=== PATIENT | male | born 1950 | race Two or more races ===

== ENCOUNTER → 2016-04-17 | Outpatient (CLI) | payer OTHER ==
--- NOTE | 2016-04-17 18:34 | DX ---
Left Shoulder , 3 Views History: Pain post trauma. Fall yesterday. Findings: The humeral head is well rounded and normally located. No fracture or dislocation is identi fied. Incidentally noted is a degenerative cyst involving the proximal superior corner of the acromiu m. The AC joint is normally aligned. Impression: Nothing acute identified.
== END ==
LOC: CIMAGING 13:40
DX: M25.512 Pain in left shoulder (principal)
CPT/HCPCS: 73030-PO

== ENCOUNTER 2017-08-06 07:32 | Inpatient (IN) | payer OTHER ==
[2017-08-06] MEDS ORDERED: LORazepam 2 MG/ML INJ ONE (07:36)
[2017-08-06] MEDS ORDERED: LIDOCAINE 1% 300 MG/30 ML SDV ONE (07:46)
[2017-08-06] MEDS ORDERED: fentaNYL 100 MCG/2 ML INJ ONE ×2 (07:46→09:51)
[2017-08-06] MEDS ORDERED: IOPAMIDOL (ISOVUE-370) 150 ML BTL IV ONE ×2 (07:47→08:51)
[2017-08-06] MEDS ORDERED: MIDAZOLAM 2 MG/2 ML VIAL ONE ×2 (07:47→09:20)
[2017-08-06] MEDS ORDERED: AMIODARONE HCL 150 MG/100 ML BAG (1.5 MG/ML) IV ONE ×2 (07:48→14:04)
[2017-08-06] MEDS ORDERED: BIVALIRUDIN 250 MG/5 ML VIAL IV ONE (07:48)
[2017-08-06] MEDS ORDERED: AMIODARONE HCL 150 MG/3 ML VIAL ONE ×2 (07:48→08:57)
--- NOTE | 2017-08-06 07:49 | EDPHY ---
HPI/HX/ROS/PE/MDM Narrative: CHIEF COMPLAINT: ICD shocks delivered. HISTORY OF PRESENT ILLNESS: This patient is a 66 y/o male with history of CAD, ischemic cardiomyopathy arriving emergently via EMS after his internal defibrillator activated this morning. He was moving a cabinet and the ICD went off. Another person in the building called EMS. On EMS arrival, the patient was discovered "almost unresponsive" with no radial pulse, BP 70/50. He was clutching his chest and having repeated internal defibrillations from his defibrillator. After being transferred to the ambulance, paramedics noted the patient to have with a interpreted as atrial fibrillation with RVR noted on EMS monitor. However, the rate is documented at close to 200 and is wide complex. EMS crews state the patient's "eyes would open with internal shock" and additionally state they may have noted an alcohol smell on patient's breath initially. EMS obtained IV access with a left 18 gauge AC and right 16 gauge EJ. Administered 500mL IV NS. The patient's mentation improved on arrival, and per EMS the patient denied any complaint of chest pain. Currently, patient is able to give his name. Patient was admitted for a similar incident 01/14/14 for inappropriate ICD shocks. Shortly after arrival to the emergency department, patient became unresponsive, appear to have tonic-clonic activities in the arms and legs, and developed wide complex, polymorphic, torsades appearing rhythm on the monitor. Further HPI unobtainable due to patient presentation. REVIEW OF SYSTEMS: Unobtainable due to patient presentation. PAST MEDICAL HISTORY: Hypertension, dyslipidemia, CAD, ischemic cardiomyopathy , Bi[employer] ICD in place. History of anterior wall [place]. Past medical records reviewed including admission 01/14/14 for ICD shock. SOCIAL HISTORY: Nonsmoker. VITAL SIGNS: Reviewed by me. Heart rate 204, weak radial pulse initially, respiratory rate 20. GENERAL: Well-developed, well-nourished, briefly awake on initial arrival. HEENT: Atraumatic. Eyes: Bilateral conjunctival injection. Mouth: moist mucous membranes. No erythema or lesions. Neck: supple with no adenopathy. LUNGS: Clear to auscultation bilaterally, no wheezes, rhonchi or rales. Pacemaker scars in right and left upper chest wall. CARDIAC: Extreme tachycardia. ABDOMEN: Soft, nontender, nondistended, bowel sounds normal. BACK: No CVA tenderness. EXTREMITIES: No trauma. No edema. Range of motion is normal throughout. NEURO: Initially alert, became unresponsive with tonic activity in his upper and lower extremities, did not regain consciousness. SKIN: Warm and dry, no rash. Portions of this note were transcribed by a medical assistant instructor. I personally performed a history, physical exam, medical decision making, and confirmed accuracy of information the transcribed note. ED Course: 66 y/o male presents with reports of multiple different relations from his internal defibrillator and concerns regarding atrial fibrillation with RVR. 07:32 Met EMS at bedside. 07:34 Patient appears to have seizure activity. 07:36 No carotid pulse. Began CPR , transfer to room 2. 07:36 Patient responsive briefly. Radial pulse briefly present, Apparent Torsades de Pointes on EMS monitor. 2 g of magnesium ordered. 07:38 Patient lost pulses. Monitor demonstrates what appears to be VFib. CPR initiated. Weak pulse present after what appears to be internal defibrillation from patient's defibrillator. Synchronous cardioversion shock administered. Pulse returned. Cardiac alert called. 1 mg Ativan given. 07:42 patient again lost pulses. Appears to be ventricular tachycardia on the monitor. Second shock administered. Pulses returned. Patient's internal defibrillator activated again. 07:42 GamaGRICELDA Markham for cardiology at bedside. 07:45 75mcg fentanyl administered for pain. Plan to administer 300mg Amiodarone. GRICELDA Lugo, concurs. Plan for intubation to protect patient's airway. 7:45 Procedure: Rapid sequence intubation. Indication for the procedure was airway protection. The patient was preoxygenated with 100% oxygen by face mask. The patient was given the following IV medications: 20mg IV Etomidate, 75mcg IV fentanyl, 120mg IV succinylcholine. The patient was orally endotracheally intubated under direct visualization with a 7.0 ETT. Tracheal intubation was confirmed with misting on the tube; breath sounds were auscultated equally bilaterally; appropriate color change with [place] CO2 detector. Chest X-ray shows ETT in good position. The procedure was performed by myself, Dr. Hurst. Plan to admit. Plan for CXR. 7:53 monitor strip demonstrates bradycardia with nonconducted premature beats. Patient lost pulses. Epinephrine administered and CPR started. 7:[address] Dye Feeder Dr. Hooks at bedside. Bedside ultrasound performed by myself demonstrates no pericardial effusion, poor ejection fraction with poor contractility. Plan to transfer patient to cath lab tech for catheterization. 08:04 2mg IV Versed administered. 08:05 Patient transferred to cath lab tech. 08:36 Troponin elevated at 0.147 Critical care time spent by me, Dr. Hurst, exclusively with this patient was 30 minutes, exclusive of PA time and exclusive of procedures. The organ system at risk was cardiac and I gave IVF, amiodarone, epinephrine, performed CPR and defibrillation, and emergently transferred the patient to the cath lab tech to prevent worsening of the patients condition. MDM: Differential diagnosis for the physician's presenting complaints was considered including but not limited to ventricular fibrillation, ventricular tachycardia, torsades de point, electrolyte abnormalities, atrial fibrillation with aberrancy , inappropriate defibrillation from internal defibrillator. - Data Points Imaging Results: Imaging Impressions Chest X-Ray 08/06/17 07:51 Impression: Expiratory phase exam. ET tube in the distal trachea. Imaging: I viewed and interpreted images myself Laboratory Results: Laboratory Results 08/06/17 07:40 08/06/17 07:40 08/06/17 08/06/17 08/06/17 07:53 07:40 07:40 WBC RBC Hgb POC Hgb 16.0 gm/dL gm/dL (13.7-17.5) Hct POC Hct 47 % % (40-51) MCV MCH MCHC RDW Plt Count MPV Neut % (Auto) Lymph % (Auto) [place] % (Auto) Eos % (Auto) Baso % (Auto) Nucleat RBC Rel Count Absolute Neuts (auto) Absolute Lymphs (auto) Absolute Monos (auto) Absolute Eos (auto) Absolute Basos (auto) Absolute Nucleated RBC Immature Gran % Immature Gran # RBC/WBC/PLT Morphology Atypical Lymphocytes Platelet Estimate POC Sodium 140 mEq/L mEq/L (135-145) Sodium 142 mEq/L mEq/L (135-145) POC Potassium 3.0 mEq/L L mEq/L (3.3-5.0) Potassium 3.7 mEq/L mEq/L (3.5-5.2) POC Chloride 102 mEq/L mEq/L (97-110) Chloride 101 mEq/L mEq/L (97-110) Carbon Dioxide 18 mEq/l L mEq/l (22-31) Anion Gap 23 mEq/L H mEq/L (8-16) POC BUN 23 mg/dL mg/dL (7-23) BUN 20 mg/dL mg/dL (7-23) Creatinine 0.9 mg/dL mg/dL (0.7-1.3) POC Creatinine 1.0 mg/dL mg/dL (0.7-1.3) Estimated GFR > 60 Glucose 227 mg/dL H mg/dL (70-100) POC Glucose 238 mg/dL H mg/dL (70-100) Calcium 8.2 mg/dL L mg/dL (8.5-10.4) Magnesium 4.2 mg/dL H mg/dL (1.6-2.3) Total Bilirubin 0.7 mg/dL mg/dL (0.1-1.4) Conjugated Bilirubin 0.5 mg/dL mg/dL (0.0-0.5) Unconjugated Bilirubin 0.2 mg/dL mg/dL (0.0-1.1) AST 163 IU/L H IU/L (17-59) ALT 177 IU/L H IU/L (21-72) Alkaline Phosphatase 59 IU/L IU/L (38-126) Troponin I 0.147 ng/mL H ng/mL (0.000-0.034) NT-Pro-B Natriuret Pep 367 pg/mL H pg/mL (0-125) Total Protein 6.3 g/dL g/dL (6.3-8.2) Albumin 3.9 g/dL g/dL (3.5-5.0) Lipase 125 IU/L IU/L (23-300) Specimen Hemolysis 205 Ethyl Alcohol < 10 mg/dL mg/dL (0-10) 08/06/17 07:40 WBC 10.72 10^3/uL H 10^3/uL (3.80-9.50) RBC 4.81 10^6/uL 10^6/uL (4.40-6.38) Hgb 15.1 g/dL g/dL (13.7-17.5) POC Hgb Hct 47.2 % % (40.0-51.0) POC Hct MCV 98.1 fL fL (81.5-99.8) MCH 31.4 pg pg (27.9-34.1) MCHC 32.0 g/dL L g/dL (32.4-36.7) RDW 13.9 % % (11.5-15.2) Plt Count 247 10^3/uL 10^3/uL (150-400) MPV 10.3 fL fL (8.7-11.7) Neut % (Auto) 28.3 % L % (39.3-74.2) Lymph % (Auto) 59.9 % H % (15.0-45.0) [place] % (Auto) 9.4 % % (4.5-13.0) Eos % (Auto) 1.3 % % (0.6-7.6) Baso % (Auto) 0.5 % % (0.3-1.7) Nucleat RBC Rel Count 0.0 % % (0.0-0.2) Absolute Neuts (auto) 3.03 10^3/uL 10^3/uL (1.70-6.50) Absolute Lymphs (auto) 6.42 10^3/uL H 10^3/uL (1.00-3.00) Absolute Monos (auto) 1.01 10^3/uL H 10^3/uL (0.30-0.80) Absolute Eos (auto) 0.14 10^3/uL 10^3/uL (0.03-0.40) Absolute Basos (auto) 0.05 10^3/uL 10^3/uL (0.02-0.10) Absolute Nucleated RBC 0.00 10^3/uL 10^3/uL (0-0.01) Immature Gran % 0.6 % % (0.0-1.1) Immature Gran # 0.06 10^3/uL 10^3/uL (0.00-0.10) RBC/WBC/PLT Morphology TNP Atypical Lymphocytes 1+ H Platelet Estimate TNP POC Sodium Sodium POC Potassium Potassium POC Chloride Chloride Carbon Dioxide Anion Gap POC BUN BUN Creatinine POC Creatinine Estimated GFR Glucose POC Glucose Calcium Magnesium Total Bilirubin Conjugated Bilirubin Unconjugated Bilirubin AST ALT Alkaline Phosphatase Troponin I NT-Pro-B Natriuret Pep Total Protein Albumin Lipase Specimen Hemolysis Ethyl Alcohol Medications Given: Acetaminophen (Tylenol Rectal) 650 mg MT Q4HRS PRN PRN Reason: Pain, Mild/Fever,Can't Take PO Stop: 02/02/18 08:23 Last Admin: 08/06/17 15:57 Dose: 650 mg Dextrose (D5w) 1,000 mls @ 25 mls/hr IV CONT GRANT PRN Reason: Protocol Stop: 02/02/18 08:59 Last Admin: 08/06/17 11:25 Dose: 1,000 mls Insulin Human Regular 100 unit (/ Sodium Chloride) 101 mls @ 0 mls/hr IV CONT GRANT; Per Protocol PRN Reason: Protocol Stop: 02/02/18 08:59 Last Admin: 08/06/17 11:24 Dose: 101 mls Propofol (Diprivan 10 Mg/Ml (Premix)) 100 mls @ 0 mls/hr IV CONT GRANT; Titrate PRN Reason: Protocol Stop: 02/02/18 08:59 Last Admin: 08/06/17 11:25 Dose: 100 mls Heparin Sodium (Porcine) (Heparin 50 Units/Ml (Premix)) 500 mls @ 0 mls/hr IV CONT GRANT; Per Protocol PRN Reason: Protocol Stop: 02/02/18 09:44 Last Admin: 08/06/17 11:25 Dose: 500 mls Fentanyl 1,000 mcg/ Sodium (Chloride) 100 mls @ 0 mls/hr IV CONT GRANT; Per Protocol PRN Reason: Protocol Stop: 08/16/17 10:23 Last Admin: 08/06/17 11:24 Dose: 100 mls Dopamine HCl/Dextrose (Dopamine 1600 Mcg/Ml (Premix)) 250 mls @ 0 mls/hr IV CONT GRANT; Titrate PRN Reason: Protocol Stop: 02/02/18 11:29 Last Admin: 08/06/17 15:32 Dose: 250 mls Epinephrine HCl 2 mg/ Sodium (Chloride) 502 mls @ 0 mls/hr IV CONT GRANT; Per Protocol PRN Reason: Protocol Stop: 02/02/18 11:59 Last Admin: 08/06/17 14:55 Dose: 502 mls Amiodarone HCl 540 mg/ (Dextrose) 300 mls @ 16.667 mls/hr IV ONCE ONE Stop: 08/07/17 07:29 Last Admin: 08/06/17 13:53 Dose: 300 mls Vasopressin 25 unit/ Sodium (Chloride) 251.25 mls @ 24 mls/hr IV CONT GRANT Stop: 02/02/18 13:59 Last Admin: 08/06/17 13:53 Dose: 251.25 mls Potassium Chloride (Potassium Cl 10 Meq (Premix)) 50 mls @ 100 mls/hr IV Q30M [facility] Stop: 08/06/17 17:29 Last Admin: 08/06/17 16:52 Dose: 50 mls Discontinued Medications Calcium Gluconate (Calcium Gluconate) 1 gm IVP EDNOW ONE Stop: 08/06/17 08:14 Last Admin: 08/06/17 07:50 Dose: 1 gm Clopidogrel Bisulfate (Plavix) 600 mg PO ONCE ONE Stop: 08/06/17 09:37 Last Admin: 08/06/17 11:26 Dose: 600 mg Enoxaparin Sodium (Lovenox) 40 mg SC DAILY [facility] Stop: 02/02/18 08:59 Last Admin: 08/06/17 11:27 Dose: Not Given Epinephrine HCl (Epinephrine) 1 mg IVP EDNOW ONE Stop: 08/06/17 08:15 Last Admin: 08/06/17 07:54 Dose: 1 mg Epinephrine HCl (Epinephrine) 0.5 mg IVP ONCE ONE Stop: 08/06/17 10:53 Last Admin: 08/06/17 11:31 Dose: 0.5 mg Etomidate (Etomidate) 20 mg IVP EDNOW ONE Stop: 08/06/17 08:13 Last Admin: 08/06/17 07:46 Dose: 20 mg Fentanyl (Sublimaze) 75 mcg IVP EDNOW ONE Stop: 08/06/17 08:12 Last Admin: 08/06/17 07:45 Dose: 75 mcg Heparin Sodium (Porcine) (Heparin Injection) 0 unit IVP ONCE ONE PRN Reason: Protocol Stop: 08/06/17 09:34 Last Admin: 08/06/17 11:31 Dose: 4.3 ml Amiodarone HCl 300 mg/ (Dextrose) 106 mls @ 318 mls/hr IV ONCE ONE Stop: 08/06/17 08:32 Last Admin: 08/06/17 07:50 Dose: 106 mls Sodium Chloride (Ns) 1,000 mls @ 0 mls/hr IV ONCE ONE PRN Reason: Wide Open Stop: 08/06/17 08:15 Last Admin: 08/06/17 08:26 Dose: 1,000 mls Potassium Chloride (Potassium Cl 10 Meq (Premix)) 100 mls @ 100 mls/hr IV Q1H GRANT Stop: 08/06/17 10:29 Last Admin: 08/06/17 12:25 Dose: Not Given Famotidine 20 mg/ Sodium (Chloride) 102 mls @ 408 mls/hr IV BID ONE Stop: 08/06/17 08:38 Last Admin: 08/06/17 13:31 Dose: Not Given Amiodarone HCl (Amiodarone Hcl) 200 mls @ 33.333 mls/hr IV ONCE ONE PRN Reason: Protocol Stop: 08/06/17 14:59 Last Admin: 08/06/17 11:25 Dose: 200 mls Epinephrine HCl 1 mg/ Sodium (Chloride) 250 mls @ 0 mls/hr IV CONT GRANT; Per Protocol PRN Reason: Protocol Stop: 02/02/18 10:59 Last Admin: 08/06/17 12:18 Dose: 250 mls Amiodarone HCl (Amiodarone Hcl) 100 mls @ 600 mls/hr IV ONCE ONE Stop: 08/06/17 14:39 Last Admin: 08/06/17 14:35 Dose: 100 mls Lorazepam (Ativan Injection) 1 mg IVP EDNOW ONE Stop: 08/06/17 08:11 Last Admin: 08/06/17 07:44 Dose: 1 mg Sodium Bicarbonate (Sodium Bicarbonate) 50 meq IVP ONCE ONE Stop: 08/06/17 14:01 Last Admin: 08/06/17 14:44 Dose: Not Given Sodium Bicarbonate (Sodium Bicarbonate) 50 meq IV ONCE ONE Stop: 08/06/17 14:46 Last Admin: 08/06/17 14:43 Dose: 50 meq Succinylcholine Chloride (Quelicin) 120 mg IVP EDNOW ONE Stop: 08/06/17 08:12 Last Admin: 08/06/17 07:46 Dose: 120 mg Point of Care Test Results: 08/06/17 07:53 POC Sodium 140 POC Potassium 3.0 L POC Chloride 102 POC BUN 23 POC Creatinine 1.0 POC Glucose 238 H General Initial Vital Signs: Initial Vital Signs Temperature (C) 37.3 C 08/06/17 07:55 Heart Rate 54 L 08/06/17 07:55 Respiratory Rate 20 08/06/17 07:55 O2 Sat (%) 90 L 08/06/17 07:55 O2 Delivery Mode Ventilator Allergies/Adverse Reactions: No Known Allergies Allergy (Verified 08/06/17 16:30) Home Medications: Medication Instructions Recorded Apixaban [Eliquis] 5 mg PO BID 08/06/17 Aspirin [Aspirin 81mg (*)] 81 mg PO DAILY 08/06/17 Atorvastatin Calcium [Lipitor 40 40 mg PO HS 08/06/17 mg (*)] Cholecalciferol Vit D3 [Vitamin D3 2,000 units PO DAILY 08/06/17 (*)] Digoxin 250 mcg PO DAILY 08/06/17 Metoprolol Succinate Xr [Toprol Xl 100 mg PO DAILY 08/06/17 100 mg (*)] [place]-3 Fatty Acids [Fish Oil 1000 1,000 mg PO DAILY 08/06/17 mg (*)] Omeprazole 20 mg PO DAILY 08/06/17 Sacubitril/Valsartan 24/26Mg 1 ea PO BID 08/06/17 [Entresto 24 mg/26 mg (RX)] metFORMIN SR [Glucophage XR 500 mg 1,500 mg PO DAILY@1800 08/06/17 (*)] Departure - Departure Disposition: [facility] Acute Clinical Impression: Cardiac defibrillator in place, Seizure, Cardiac arrest Atrial fibrillation Qualifiers: Atrial fibrillation type: unspecified Qualified Code(s): I48.91 - Unspecified atrial fibrillation Cardiac arrhythmia Qualifiers: Arrhythmia type: other cardiac arrhythmia Qualified Code(s): I49.8 - Other specified cardiac arrhythmias Condition: Critical Report Scribed for: Carey Hurst Report Scribed by: Anabella Sutton Date of Report: 08/06/17 Time of Report: 09:28
[2017-08-06] MEDS ORDERED: LORazepam 2 MG/ML INJ IVP ONE (08:10)
[2017-08-06] MEDS ORDERED: SUCCINYLCHOLINE CHLORIDE 200 MG/10 ML SYR IVP ONE (08:11)
[2017-08-06] MEDS ORDERED: fentaNYL 100 MCG/2 ML INJ IVP ONE (08:11)
[2017-08-06] MEDS ORDERED: ETOMIDATE 40 MG/20 ML INJ IVP ONE (08:12)
[2017-08-06] MEDS ORDERED: CALCIUM GLUC 10% 1 GM/10 ML VIAL IVP ONE (08:13)
[2017-08-06] MEDS ORDERED: AMIODARONE HCL 300 MG in D5W 100 ML IV ONE (08:13)
[2017-08-06] MEDS ORDERED: EPINEPHrine 1 MG/10 ML SYR IVP ONE ×5 (08:14→12:00)
[2017-08-06] MEDS ORDERED: NS 1,000 ML IV ONE (08:14)
[2017-08-06 08:15] LABS: PLATELET COUNT 247 10^3/uL (150-400)
[2017-08-06] MEDS ORDERED: PHENYLEPHRINE HCL 100 MCG/ML SYR ONE (08:20)
[2017-08-06] MEDS ORDERED: PROPOFOL/EMULSION 500 MG/50 ML BOTTLE IV ONE ×2 (08:22)
[2017-08-06] MEDS ORDERED: AMIODARONE HCL 540 MG in D5W 300 ML IV ONE ×2 (08:23→13:30)
[2017-08-06] MEDS ORDERED: ACETAMINOPHEN 650 MG SUPP PR PRN (08:24)
[2017-08-06] MEDS ORDERED: FAMOTIDINE 20 MG in NS 100 ML IV ONE (08:24)
--- NOTE | 2017-08-06 08:28 | CPEKG ---
Heart Rate: 76 RR Interval: 789 P-R Interval: 124 QRSD Interval: 252 QT Interval: 508 QTC Interval: 572 QRS [place]: -70 T Wave [place]: 115 EKG Severity - ABNORMAL ECG - EKG Impression: ATRIAL-PACED COMPLEXES EKG Impression: RUN OF VENTRICULAR PREMATURE COMPLEXES EKG Impression: NONSPECIFIC IVCD WITH LAD EKG Impression: LEFT VENTRICULAR HYPERTROPHY Electronically Signed By: Carey Hurst 06-Aug-2017 16:29:11
[2017-08-06] MEDS ORDERED: PROTOCOL POTASSIUM 1 DOSE MISC PRN ×2 (08:51→09:10)
[2017-08-06] MEDS ORDERED: ENOXAPARIN 40 MG/0.4 ML SYR SC SCH (09:00)
[2017-08-06] MEDS ORDERED: fentaNYL/NACL 100 ML IV SCH (09:00)
[2017-08-06] MEDS ORDERED: AMIODARONE A.FIB-6HR INFSN (ORDER 2/3) PREMIX IV ONE (09:00)
[2017-08-06] MEDS ORDERED: D5W 1,000 ML IV SCH (09:00)
[2017-08-06] MEDS ORDERED: AMIODARONE A.FIB-18HR INFSN (ORDER 3/3) IV ONE (09:00)
[2017-08-06] MEDS ORDERED: CLOPIDOGREL BISULFATE 75 MG TAB ONE (09:28)
[2017-08-06] MEDS ORDERED: HEPARIN 10,000 UNIT/10 ML MDV (1,000 UNIT/ML) IVP ONE (09:33)
[2017-08-06] MEDS ORDERED: ATROPINE SULFATE 1 MG/10 ML SYR IVP PRN (09:36)
[2017-08-06] MEDS ORDERED: CLOPIDOGREL BISULFATE 75 MG TAB PO ONE (09:36)
[2017-08-06] MEDS ORDERED: NITROGLYCERIN 0.4 MG BTL SL PRN (09:36)
[2017-08-06 09:43] LABS: PLATELET COUNT 205 10^3/uL (150-400)
--- NOTE | 2017-08-06 09:48 | CPIP ---
[f rep st] INVASIVE CARDIAC PROCEDURE DATE OF PROCEDURE: 08/06/2017 PROCEDURES: 1. Coronary angiography. 2. Left ventricular end-diastolic pressure. 3. Intra-aortic balloon pump. 4. Stenting of proximal circumflex coronary artery using Synergy drug-eluting stent. INDICATION: Cardiac arrest. ACCESS: Patient was prepped and draped in the sterile fashion. 1% lidocaine was used to anesthetize the right inguinal region. A 6-Cymraes introducer sheath was placed selectively into the right commo n femoral artery via modified Seldinger technique. The 6-Cymraes introducer sheath was later exchange d for an 8-Cymraes introducer sheath via exchange wire technique. CORONARY ANGIOGRAPHY: A 6-Cymraes JL4 was advanced to the left main coronary artery and images obtain ed. The left main coronary artery trifurcated into an LAD, ramus, and circumflex coronary arteries. The left main coronary artery had a distal 20% to 25% stenosis present. The left anterior descendin g coronary artery was 100% occluded in the proximal segment. The distal vessel was being fed by righ t-to-left collaterals. The ramus coronary artery was a large vessel. The ramus coronary artery had an ostial 30% stenosis present. The circumflex coronary artery was a large vessel. The circumflex c oronary artery was previously stented in the proximal to mid segment. The previously placed stent is widely patent with mild in-stent restenosis. In the ostial to proximal portion of the vessel, there was a segmental 80% stenosis present. A 6-Cymraes JR4 was advanced to the right coronary artery and i mages obtained. The right coronary artery was dominant. The right coronary artery supplied the left anterior descending coronary artery via collaterals. The right coronary artery appeared normal. LEFT VENTRICULOGRAPHY: Left ventriculography was not performed in an effort to spare contrast. Limi gary echocardiogram in the emergency department demonstrated reduced left ventricular systolic functio n with an estimated ejection fraction of 20%. The left ventricular end-diastolic pressure was obtain ed after passage of pigtail into the left ventricle. Left ventricular end-diastolic pressure was jayson vated at 42 mmHg. PERCUTANEOUS CORONARY INTERVENTION OF THE CIRCUMFLEX CORONARY ARTERY: A 6-Cymraes EBU 3.5 catheter wa s advanced to the left main coronary artery and images obtained. Angiography confirmed the presence of high-grade disease involving the ostial to proximal circumflex coronary artery. A Luge wire was p laced in the distal vessel and position verified by angiography. A 3.0 x 15 Emerge balloon was used to pre-dilate the lesion. Followup angiography demonstrated ANNE-MARIE-3 flow with significant residual st enosis. A 3.0 x 16 Synergy drug-eluting stent was then placed across the lesion and deployed. [facility] angiography demonstrated ANNE-MARIE-3 flow with a 15% residual stenosis. It was decided to not post di late the circumflex stent given hypotension and ventricular tachycardia during previous balloon infla tions. INTRA-AORTIC BALLOON PUMP PLACEMENT: An intra-aortic balloon pump was placed via the right common fe moral access site. It was a 40 cc balloon. COMPLICATIONS/ADVERSE EVENTS: The patient had hypotension and ventricular tachycardia with balloon a nd stent inflations. CONCLUSIONS: 1. 2-vessel coronary artery disease. 2. Elevated left ventricular end-diastolic pressure. 3. Status post successful percutaneous coronary intervention in the circumflex coronary artery. /[id number]/MODL
[2017-08-06 09:53] LABS: INR 1.53 (0.83-1.16); PROTIME(PATIENT) 18.5 SEC (12.0-15.0)
--- NOTE | 2017-08-06 09:58 | GHP ---
[f rep st] HISTORY AND PHYSICAL DATE OF ADMISSION: 08/06/2017 CHIEF COMPLAINT: Cardiac arrest. HISTORY OF PRESENT ILLNESS: The patient is a 66-year-old diabetic male with a history of coronary artery disease, remote anterior myocardial infarction, and subsequent chronic ischemic systolic heart failure with an AICD present who presents to the hospital after he suffered a shock from his defibrillator device. He was moving a heavy cabinet at work when he felt his defibrillator activate. EMS was called. Upon their arrival, the patient was nearly unresponsive with no radial pulse and was hypotensive with a blood pressure of 70/50. On the ironworker, his rhythm appeared to be consistent with atrial fibrillation with RVR. EMS noted alcohol smell on his breath. IV access was obtained. He was given a 500 cc normal saline bolus in the field. Upon arrival to the emergency department, the patient was awake and able to answer questions. However, within minutes, he again became pulseless, and CPR was started. Torsades was noted on the monitor. There was also some concern about seizure activity. He received 2 g of IV magnesium, 1 mg of Ativan, 300 mg of IV amiodarone, 1 g of calcium gluconate, 1 mg of epinephrine, and 2 rounds of shock. He was intubated in the emergency department. He had return of spontaneous circulation though again became pulseless, and CPR was resumed. Pulses returned. He was transferred to the bean sprout laborer where he is currently undergoing angiography by Dr. Hooks. He will be admitted to the intensive care unit for further management. PAST MEDICAL HISTORY: 1. Coronary artery disease, status post remote anterior AK. 2. Ischemic cardiomyopathy with chronic diastolic with chronic systolic heart failure with an ejection fraction of 30% by echocardiogram in February 2016. 3. Presence of an AICD. 4. Zbl-qanbgri-yejdgkqmb diabetes. 5. Atrial fibrillation. 6. Hyperlipidemia. 7. Hypertension. 8. History of ventricular tachycardia. 9. Tubular adenoma of colon. 10. Vitamin D deficiency. PAST SURGICAL HISTORY: 1. Angiogram in 2000 and 2003. 2. Defibrillator implant initially placed in 2002 with a generator change in April 2006. 3. Pacemaker placed in September 2010. MEDICATIONS: Please see [facility] for completed outpatient medication list. ALLERGIES: He has no known drug allergies. FAMILY HISTORY: Positive for diabetes in his mother. SOCIAL HISTORY: Patient was born in [facility]. He has 4 children. 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 He is originally from [facility]. He is a lifetime nonsmoker. His alcohol intake is unclear. REVIEW OF SYSTEMS: Unobtainable as the patient is intubated. OBJECTIVE: VITAL SIGNS: Temperature is 37.3, heart rate was 54 on arrival though, upon transfer to the bean sprout laborer, his rate was 208, respiratory rate 20. GENERAL: The patient is intubated, sedated. I am going to defer the rest of physical exam, I will update this later. LABORATORY DATA: CBC reveals white blood cell count of 10.7, hemoglobin 15.1, platelets are 243. ABG shows pH is pending, pCO2 is 47, pO2 of 129. Complete metabolic panel is remarkable for a sodium of 142, potassium 3.7, repeat potassium is 2.9, chloride 101, bicarb 18, anion gap 23, creatinine 0.9, GFR greater than 60. Blood glucose 227. A1c is pending. Calcium 8.2, magnesium 4.2 after an IV mag infusion. LFTs: AST 163, ALT 177, alkaline phosphatase 59. Troponin is elevated at 0.147. NT proBNP is 367. Albumin is normal at 3.9. Lipase is 125. Serum alcohol level is pending. Post intubation chest x-ray shows ET tube in the distal trachea just above the level of the lindsay. No pleural effusion, pulmonary edema, or pneumothorax are seen. AICD is present. EKG on arrival shows atrial paced complexes with LVH and a rate of 76. ASSESSMENT AND PLAN: The patient is a 66-year-old male with history of ischemic cardiomyopathy, presence of a defibrillator, and history of ventricular tachycardia who presents to the emergency department after activation of his defibrillator device and unstable cardiac arrhythmia resulting in cardiac arrest requiring urgent intubation and transfer to the catheterization laboratory. Cardiac arrest. This is thought secondary to a ventricular tachycardia storm possibly hastened by worsening ischemic disease in patient with ICM and systolic HF. He has had 2 pulseless events since arrival requiring 2 shocks, 2 rounds of epinephrine, intravenous magnesium, intravenous calcium and intravenous amiodarone bolus of 300 mg. Will initiate amiodarone drip. Patient is currently undergoing angiogram with interventions per Dr. Hooks- stent to circumflex caused hypotension and recurrent VT, responsive to 0.5 mg Epi. Pt initiated on dopamine drip for hypotension. IABP placed. Adding Epi drip in ICU for refractory hypotension. Will replace potassium to maintain a potassium greater than 4. His current magnesium is 4.2. This is likely just after intravenous magnesium infusion. Will continue to monitor lytes closely. Upon arrival, he was awake and alert and had brief pulseless episodes, thus, will defer hypothermia after cardiac arrest (HACA) protocol. Pulm is placing a central line. Echo pending. Lasix as tolerated. ASA, statin, plavix. Follow up further Cardiology recommendations. Ischemic cardiomyopathy with chronic systolic heart failure. His last ejection fraction was 30%. Anticipate development of pulmonary edema with recurrent VT and cardiogenic shock. Diurese as able. It does not look like he is on outpatient diuretics. Will continue to monitor his volume status closely and follow his ins and outs and daily weights. Hypotension secondary to cardiogenic shock. IABP, Dopamine and Epinephrine as above. Acute encephalopathy. Concern for anoxic event. Acute hypoxemic respiratory failure. Patient is intubated, sedated, provided fentanyl and propofol. Further vent management per Pulmonary. Type 2 diabetes mellitus. Presenting blood sugar is 238. Will initiate intensive insulin drip for glycemic control. Hold his metformin given his contrast load. Hypokalemia. Replace as above to maintain potassium greater than 4 in the setting of cardiac arrhythmia. Elevated liver function tests, suspect hypoperfusion secondary to cardiac arrest. Will continue to follow. Elevated troponin. This is after CPR and arrhythmia. He is currently undergoing ischemic evaluation in the catheterization laboratory. Prophylaxis: Lovenox and Pepcid. CODE STATUS: Patient is full code. DISPOSITION: Patient is admitted to the intensive care unit and will require greater than 48 hours hospitalization given his cardiac arrest and intubated status. I discussed the case with Dr. Hooks and Dr. Soni. A total of 60 minutes critical care time spent on admission. An additional 40 minutes of critical care time spent managing persistent hypotension and cardiogenic shock. /[id number]/MODL MTDD
[2017-08-06] MEDS ORDERED: PROPOFOL/EMULSION 1,000 MG/100 ML BOTTLE IV ONE (10:15)
--- NOTE | 2017-08-06 10:28 | GCON ---
[f rep st] CONSULTATION DATE OF CONSULTATION: 08/06/2017 CHIEF COMPLAINT: We have been asked by Dr. Ortega to evaluate the patient with a cardiac arrest. HISTORY OF PRESENT ILLNESS: The patient is a 66-year-old gentleman with known coronary artery diseas e and an ischemic cardiomyopathy, who was brought into the emergency department with a cardiac arrest . The patient was in his usual state of health until this a.m. 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 While moving a heavy cabinet, his ICD discharged, and a bystander called EMS. When EMS arrived, the patient was hypotensive and noted to be grabbing his chest. He was minimally responsive. Initial EKG demonstrated ventricular tachycardia. IV access was obtained, and patient was given normal saline and transported to [facility] emergency department for further managem ent. In the emergency department, he had a repeat episode of ventricular tachycardia, which was foll owed by a lack of pulse. Patient was treated with CPR, as well as DC cardioversion. This was follow ed quickly by IV amiodarone, as well as subsequent intubation. We were asked to help in the further management of this patient. The patient has known coronary artery disease and is status post a previ ous anterior myocardial infarction. His LVEF post myocardial infarction was approximately 25% to 30% . The patient has been managed medically, as well as with ICD therapy. The patient does have 1 prev ious admission for VT storm, at which point he was loaded on Tikosyn. PAST MEDICAL HISTORY: 1. Coronary artery disease. 2. Ischemic cardiomyopathy. 3. History of ventricular tachycardia storm. 4. Atrial fibrillation. 5. Diabetes mellitus. 6. Hypertension. 7. Hyperlipidemia. MEDICATIONS: Please see medicine reconciliation form. 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 He does not smoke. Unable to assess alcohol history. REVIEW OF SYSTEMS: Unable to assess. PHYSICAL EXAM: GENERAL: The patient is intubated and sedate at this time. He has intermittent puls ed activity. LUNGS: Crackles at the bases. CARDIOVASCULAR: Tachycardia, S1, S2. EXTREMITIES: No edema. NEURO: Patient is sedate. ASSESSMENT AND PLAN: The patient is a 66-year-old gentleman with known coronary artery disease and a n ischemic cardiomyopathy, who presents with a ventricular tachycardia storm. He has intermittent pa jeremy rhythm with pulsed activity. Will plan on taking him emergently to the cardiac catheterization l aboratory to look for a high-grade lesion potentially causing ischemia contributing to his arrhythmia s. Will also plan on continuing amiodarone therapy at this time. /[id number]/MODL
[2017-08-06] MEDS ORDERED: ALTEPLASE 2 MG VIAL IVP PRN (10:42)
[2017-08-06] MEDS ORDERED: NOREPINEPHRINE/NS 500 ML IV SCH (11:00)
[2017-08-06] MEDS: INSULIN REGULAR HUMAN 100 UNIT in NS 100 ML IV SCH (11:24)
[2017-08-06] MEDS: EPINEPHrine 1 MG in NS 250 ML IV SCH ×2 (11:24→12:18)
[2017-08-06] MEDS: HEPARIN/DEXTROSE 500 ML IV SCH (11:25)
[2017-08-06] MEDS: PROPOFOL/EMULSION 100 ML IV SCH ×2 (11:25→18:30)
[2017-08-06] MEDS ORDERED: DOPamine/DEXTROSE 400 MG/250 ML BAG IV ONE ×2 (11:28→12:00)
--- NOTE | 2017-08-06 12:13 | GOP ---
[f rep st] OPERATIVE REPORT DATE OF OPERATION: SURGEON: Ramírez Delgado MD PREOPERATIVE DIAGNOSIS: Coronary artery disease, myocardial infarction. POSTOPERATIVE DIAGNOSIS: Coronary artery disease, myocardial infarction. PROCEDURE PERFORMED: Left femoral vein central line placement. 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 DESCRIPTION OF PROCEDURE: Left groin scrubbed with ChloraPrep, draped in usual sterile fashion. The whole procedure was done with sterile gown, gloves, etc. Ultrasounds were used to locate the left f emoral vein and an 18-gauge thin wall needle used to puncture the vein to gain access and a guidewire inserted. The dilator was passed and then a triple-lumen catheter placed over the wire and threaded into the central circulation. All ports were aspirated of blood, flushed with saline, and then the device sutured to the skin. Sterile dressing was applied by the nurse. Patient tolerated the proced ure. /[id number]/MODL
[2017-08-06] MEDS: POTASSIUM Cl (KCl) 100 ML IV SCH (12:25)
[2017-08-06] MEDS ORDERED: diphenhydrAMINE 25 MG CAP PO ONE (12:30)
[2017-08-06] MEDS ORDERED: ACETAMINOPHEN 325 MG TAB PO ONE (12:30)
--- NOTE | 2017-08-06 12:32 | ASMTCASEMG ---
Living Arrangements What is your living Answers: With Spouse arrangement? Who do you live with? Type Of Residence What kind of residence do Answers: House you live in? Discharge Plan Comments Coordination Status Comments Notes: Patient is a 66yo male who was brought to [facility] emergently after he suffered a shock from his defibrillator device. CPR was started in the ER. Patient was transferred to the orthodontic lab technician. Cardiac rehab eval ordered. D/C needs TBD. CM will follow. Date Signed: 08/06/2017 12:31 PM Electronically Signed By:Jenelle Brian LCSW
--- NOTE | 2017-08-06 12:34 | GCON ---
[f rep st] CONSULTATION REASON FOR ADMISSION: Cardiac arrest. HISTORY OF PRESENT ILLNESS: The patient is a 66-year-old male with an extensive past medical history , including ischemic cardiomyopathy, AICD placement, bbk-omsipbv-mtoxfgcqf diabetes, atrial fibrillat ion, hyperlipidemia, hypertension, history of ventricular tachycardia and coronary artery disease wit h a remote DC. He presented to the emergency room after receiving shocks from his defibrillator. At that time, he was moving a cabinet. EMS was then called. He was brought to the emergency room. He was apparently awake and alert upon presentation, however became pulseless, and CPR was begun. He w as intubated and placed on mechanical ventilation. He went to the cardiac high density press laborer and underwent car diac angiography as well as a stent placement. He was then transferred to the intensive care unit on the intra-aortic balloon pump and on mechanical ventilation as well as multiple pressors. REVIEW OF SYSTEMS: A 10-point review of system was attempted but unobtainable secondary to patient's being on mechanical ventilation and obtundation. PAST MEDICAL HISTORY: Again, significant for ischemic cardiomyopathy, noninsulin-dependent diabetes, hyperlipidemia, history of ventricular tachycardia, hypertension, atrial fibrillation, AICD placemen t, and coronary artery disease. PAST SURGICAL HISTORY: Had angiograms in the past and a defibrillator placed. ALLERGIES: None known to medications. FAMILY HISTORY: Noncontributory. SOCIAL HISTORY: Lifelong never smoker. No significant alcohol use. He is originally from [facility] and has spent time in [place]. He is and has 4 children. 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 PHYSICAL EXAMINATION: VITAL SIGNS: Blood pressure is 108/80, pulse 76, respirations 26, temperature is 34.7, oxygen saturation 99% on mechanical ventilation. GENERAL: A well-developed elderly male, who is obtunded on mechanical ventilation. HEENT: Eyes are wide and poorly responsive. Throat: En dotracheal tube is in good position. NECK: Supple. No cervical adenopathy. HEART: Regular rate a nd rhythm and rhythm with a 2/6 systolic murmur at the left sternal border without radiation. LUNGS: Diminished breath sounds. A few bibasilar crackles but no wheeze. ABDOMEN: Soft, nontender. [place] el sounds are present. EXTREMITIES: No clubbing, cyanosis, or edema. LABORATORIES: White count 15, hemoglobin 12, hematocrit 38, platelet count is 205. INR 1.53. Arter ial blood gas: pH 7.12, pCO2 of 47, pO2 of 129, bicarb 14, and oxygen saturation 97%; this is on an IMV of 12, tidal volume of 360, pressure support of 7, and PEEP of 5. Sodium 135, potassium 3.8, chl oride 102, CO2 is 11, BUN 20, creatinine 1, and glucose is 308. IMPRESSION: 1. Status post cardiac arrest, likely a combination of ventricular tachycardia and acute coronary sy ndrome. 2. Acute respiratory failure secondary to above. 3. Shock, cardiogenic in nature. 4. Diabetes. 5. Hypokalemia. 6. Elevated liver functions. 7. Intra-aortic balloon pump. RECOMMENDATIONS: 1. Continue mechanical ventilation. 2. Continue aortic balloon pump. 3. Central line to be placed by Surgery. 4. Close cardiovascular monitoring. 5. Potassium replacement as well as electrolyte replacement. 6. DVT and PE prophylaxis. 7. Aggressive blood sugar control. /[id number]/MODL
[2017-08-06] MEDS: VASOPRESSIN 25 UNIT in NS 250 ML IV SCH ×2 (13:53→23:34)
--- NOTE | 2017-08-06 13:57 | ECHO ---
[email or web address] [address] Main: [phone] Fax: Transthoracic Echocardiogram Name: AURA RIVERA MR#: [id number] Study Date: 08/06/2017 Study Time: 12:41 PM Date of : 1950 Age: 66 year(s) Height: ( ) Weight: ( ) BSA: Gender: Male Examination: Echo Indication: eval LVFX on balloon pump Image Quality: Technically Difficult Contrast: Requested by: Suzie Ortega BP: 95 mmHg/76 mmHg Heart Rate: Rhythm: Indication: eval LVFX on balloon pump Procedure Staff Compensation And Benefits Manager: Zulma Kan [facility] Reading Physician: Vernon Hooks MD Requesting Provider: Conclusions: Dilated left ventricle. Severely reduced systolic LV function. EF is 19 %. Thinning and akinesis of the mid to distal anteroseptum, and apical dawson. The mitral valve is normal in appearance and function. Aortic valve is not well visualized. There is no aortic valve regurgitation. No aortic valve stenosis is present. Measurements: Chambers Valvular Assessment AV/MV Valvular Assessment TV/PV Normal Normal Normal Name Value Range Name Value Range Name Value Range Ao Yamilet (MM): 3.1 cm (2.2 cm-3.7 AV Vmax: 1.00 m/s (1 m/s-1.7 cm) m/s) IVSd (2D): 0.9 cm (0.6 cm-1.1 AV maxP mmHg ( - ) cm) LVOT Vmax: 1.05 m/s (0.7 m/s-1.1 LVDd (2D): 5.4 cm (4.2 cm-5.9 m/s) cm) MV E Vmax: 0.78 m/s ( - ) LVDs (2D): 4.7 cm (2.1 cm-4 MV A Vmax: 0.71 m/s ( - ) cm) MV E/A: 1.10 ( - ) LVPWd (2D): 1.0 cm (0.6 cm-1 cm) LVEF (MOD4): 19 % (>=55 %) Continued Measurements: Chambers Name Value LADs Lon.3 cm Patient: AURA RIVERA Study Date: 08/06/2017 Page 1 of 2 12:41 PM LA Area: 16.8 cm2 Findings: Left Ventricle: Dilated left ventricle. No LV hypertrophy. Severely reduced systolic LV function. EF is 19 %. Thinning and akinesis of the mid to distal anteroseptum, and apical dawson. Unable to assess diastolic dysfunction. Right Ventricle: Right ventricle not visualized. There is a pacemaker lead noted in the right ventricle. Left Atrium: The left atrium is normal in size. Right Atrium: The right atrium is normal in size. Mitral Valve: The mitral valve is normal in appearance and function. There is no mitral valve regurgitation. No mitral stenosis is present. Aortic Valve: Aortic valve is not well visualized. There is no aortic valve regurgitation. No aortic valve stenosis is present. Tricuspid Valve: Tricuspid valve not visualized. There is no tricuspid valve regurgitation. Pulmonic Valve: Pulmonary valve not visualized. Aorta: Normal size aortic root measuring 3.1 cm. Pericardium: No pericardial effusion. (No Signature Object) Patient: AURA RIVERA Study Date: 08/06/2017 Page 2 of 2 12:41 PM [id number]
[2017-08-06] MEDS ORDERED: SODIUM BICARBONATE 50 MEQ/50 ML SYR IVP ONE (14:00)
--- NOTE | 2017-08-06 14:05 | CPEKG ---
Heart Rate: 99 RR Interval: 606 P-R Interval: 172 QRSD Interval: 124 QT Interval: 356 QTC Interval: 457 P [place]: 75 QRS [place]: -60 T Wave [place]: 80 EKG Severity - ABNORMAL ECG - EKG Impression: SINUS RHYTHM EKG Impression: IVCD, CONSIDER ATYPICAL LBBB Electronically Signed By: Carey Hurst 06-Aug-2017 16:29:05
--- NOTE | 2017-08-06 14:18 | PDMN ---
Medical Necessity Medical necessity: Patient meets inpatient criteria per physician note and [facility] Card[facility] (intubated and ventilated, on Epi IV gtt and dopamine IV gtt for hypotension secondary to cardiogenic shock s/p cardiac arrest/likely VT storm; anticipated LOS > 2 midnights for ongoing ventilation, cardiac interventions.)
[2017-08-06] MEDS ORDERED: AMIODARONE HCL 100 ML IV ONE ×2 (14:30→21:30)
[2017-08-06] MEDS ORDERED: NA BICARBONATE 50 MEQ/50 ML VIAL IV ONE (14:45)
[2017-08-06] MEDS: EPINEPHRINE IV SCH ×2 (14:55→20:09)
[2017-08-06] MEDS: NS IV SCH ×2 (14:55→20:09)
[2017-08-06] MEDS: POTASSIUM Cl (KCl) 50 ML IV SCH ×6 (16:15→21:32)
[2017-08-06 21:53] LABS: CREATINE KINASE 5059 IU/L (0-224)
[2017-08-06] MEDS: FAMOTIDINE 20 MG/NACL 50 ML IV SCH (22:10)
[2017-08-06] MEDS: CHLORHEXIDINE GLUCONATE 15 ML UDL PO SCH (22:42)
[2017-08-07] MEDS: NS IV SCH ×3 (01:07→12:19)
[2017-08-07] MEDS: EPINEPHRINE IV SCH ×3 (01:07→12:19)
[2017-08-07 06:14] LABS: PLATELET COUNT 121 10^3/uL (150-400)
[2017-08-07 07:29] LABS: CREATINE KINASE 6383 IU/L (0-224)
[2017-08-07] MEDS ORDERED: AMIODARONE A.FIB-18HR INFSN (ORDER 3/3) IV SCH (08:15)
[2017-08-07] MEDS: ASPIRIN EC 325 MG TAB PO SCH ×2 (08:18→10:15)
[2017-08-07] MEDS: ATORVASTATIN CALCIUM 40 MG TAB PO SCH ×2 (08:18→10:15)
[2017-08-07] MEDS: CHLORHEXIDINE GLUCONATE 15 ML UDL PO SCH ×2 (08:47→21:15)
[2017-08-07] MEDS: FAMOTIDINE 20 MG/NACL 50 ML IV SCH ×2 (08:48→20:48)
--- NOTE | 2017-08-07 08:57 | PDINTPN ---
[place] Gatherer Progress Note Assessment/Plan: Assessment/plan: * Status post cardiac arrest-this occurred in the setting of upwards of 30 defibrillation is from his AICD * Coronary artery disease-status post cardiac stenting * Intra-aortic balloon pump * Shock-continues on 3 pressors -wean as tolerated * Atrial fibrillation * Ischemic cardiomyopathy with very low ejection fraction * Acute respiratory failure-stable on mechanical ventilation. Most comfortable on CPAP with excellent minute ventilation. -wean FiO2 as tolerated -not ready for assessment for extubation * Encephalopathy-query anoxic injury. Improved -follow closely * History of AICD placement * Non insulin-dependent diabetes-blood sugars stable * History of hypertension * VT prophylaxis * Stress ulcer prophylaxis * Sedation-adequate * Nutrition-none * Abdominal distension-abdominal x-ray Subjective: Opens his eyes and follows simple commands. Objective: Vital Signs Temp Pulse Resp BP Pulse Ox 38.3 C 72 12 81/61 L 99 08/07/17 08:00 08/07/17 08:20 08/07/17 08:20 08/07/17 08:00 08/07/17 08:20 Microbiology 08/06/17 20:21 - Final Unspecified Laboratory Results 08/07/17 05:10 08/07/17 05:10 08/06/17 08/07/17 08/08/17 05:59 05:59 05:59 Intake Total 5431.0 Output Total 1597 Balance 3834.0 PT 18.5 SEC (12.0-15.0) H 08/06/17 09:41 INR 1.53 (0.83-1.16) H 08/06/17 09:41 Laboratory Results 08/07/17 05:10 08/07/17 05:10 08/07/17 08/07/17 05:50 05:10 pCO2 35 mmHg mmHg (34 - 38) pO2 84 mmHg H mmHg (65 - 75) Total CO2 16 mEq/L L mEq/L (23 - 27) ABG pH 7.27 L (7.35 - 7.45) ABG PO2/FiO2 Ratio 140 RATIO RATIO ABG HCO3 15 mEq/L L mEq/L (22 - 26) ABG O2 Saturation 94 % % (92 - 95) O2 Concentration % 60 % % Respiration Rate 22 Set Respiration Rate 22 Assist Control YES Tidal Volume 500 PEEP 5 Calcium 6.4 mg/dL L mg/dL (8.5 - 10.4) Total Bilirubin 0.7 mg/dL mg/dL (0.1 - 1.4) AST 312 IU/L H IU/L (17 - 59) ALT 262 IU/L H IU/L (21 - 72) Alkaline Phosphatase 50 IU/L IU/L (38 - 126) Creatine Kinase 6383 IU/L H IU/L (0 - 224) CK-MB (CK-2) Fraction 57.00 ng/mL H ng/mL (0.00 - 3.19) CK-MB (CK-2) % 0.9 % % (0.0 - 4.0) Creatine Kinase Interp NEGATIVE Troponin I 12.000 ng/mL H ng/mL (0.000 - 0.034) Total Protein 4.9 g/dL L g/dL (6.3 - 8.2) Albumin 2.6 g/dL L g/dL (3.5 - 5.0) Chest [id number]-dqj-[id number] by myself. Endotracheal tube in good position. Right lung suggests pulmonary edema. Pacemaker noted. - Time Spent With Patient Time Spent With Patient: 35 min of critical care time spent with patient. Physical Exam - Physical Exam General Appearance: other (Awake) EENT: PERRL/EOMI, ET tube Neck: non-tender Respiratory: crackles (Bibasilar), No respiratory distress, No wheezing Cardiac/Chest: systolic murmur, irregularly irregular Abdomen: non-tender, distended, No normal bowel sounds (Diminished) Male Genitalia: deferred Rectal: deferred Skin: normal color, warm/dry Extremities: non-tender ICD10 Worksheet Patient Problems: Problems Problem Status Onset Atrial fibrillation Acute Cardiac arrest Acute Cardiac arrhythmia Acute Cardiac defibrillator in place Acute Seizure Acute Cardiomyopathy Acute Ventricular tachycardia Acute
[2017-08-07] MEDS ORDERED: CLOPIDOGREL BISULFATE 75 MG TAB PO SCH (09:00)
--- NOTE | 2017-08-07 09:01 | CPEKG ---
Heart Rate: 70 RR Interval: 857 QRSD Interval: 110 QT Interval: 440 QTC Interval: 475 QRS [place]: -54 T Wave [place]: -75 EKG Severity - ABNORMAL ECG - EKG Impression: ATRIAL FIBRILLATION EKG Impression: LEFT ANTERIOR FASCICULAR BLOCK EKG Impression: LATERAL INFARCT, AGE INDETERMINATE EKG Impression: anterior ST elevation c.w. old infarct, unchaged from 01/17/2017 Electronically Signed By: Obed George 11-Aug-2017 12:52:36
--- NOTE | 2017-08-07 09:46 | HOSPPROG ---
Hospitalist Progress Note Assessment/Plan: Cardiac arrest 2/2 VT storm - Possibly hastened by worsening ischemia and low EF. Has required multiple rounds of shocks, again last night. -cont amiodarone gtt, transition to po per cards AHRF due to above - extubated today, on 3 LPM Cardiogenic shock - on Dopamine, Epi, Vaso drips and IABP -IABP management per cards -wean pressors: Dopa first, then Epi, then Vaso as able Ischemic cardiomyopathy - EF 19%, AICD present -will eventually need diuresis when tolerable CAD - Occluded LAD, s/p stent to circ yesterday -cont ASA, plavix, statin -heparin drip Type 2 DM - insulin drip for glycemic control -transition to SSI when eating, likely to order diet this afternoon if no recurrent shocks/intubation needed A fib - amio as above Hyperlipidemia - cont statin Full code Dispo - cont inpt, ICU. High risk. Condition guarded, remains critically ill. Discussed with Dr. Soni and Dr. Hooks. 30 min crit care time Subjective: Pt awake, alert, communicative this morning. No CP or SOB. Had long run of VT last night requiring another shock. Slight fever last night, better today. Objective: Vital Signs Temp Pulse Resp BP Pulse Ox 38.4 C H 75 15 107/32 L 100 08/07/17 09:00 08/07/17 09:00 08/07/17 09:00 08/07/17 09:00 08/07/17 09:00 Microbiology 08/06/17 20:21 - Final Unspecified Laboratory Results 08/07/17 05:10 08/07/17 05:10 08/06/17 08/07/17 08/08/17 05:59 05:59 05:59 Intake Total 5431.0 Output Total 1597 Balance 3834.0 PT 18.5 SEC (12.0-15.0) H 08/06/17 09:41 INR 1.53 (0.83-1.16) H 08/06/17 09:41 - Physical Exam Constitutional: no apparent distress Eyes: PERRL Ears, Nose, Mouth, Throat: moist mucous membranes Cardiovascular: regular rate and rhythym Respiratory: no respiratory distress, inspiratory crackles Gastrointestinal: normoactive bowel sounds, soft, non-tender abdomen Skin: warm Musculoskeletal: full muscle strength Neurologic: AAOx3 Psychiatric: interacting appropriately ICD10 Worksheet Patient Problems: Problems Problem Status Onset Atrial fibrillation Acute Cardiac arrest Acute Cardiac arrhythmia Acute Cardiac defibrillator in place Acute Seizure Acute Cardiomyopathy Acute Ventricular tachycardia Acute
[2017-08-07] MEDS: VASOPRESSIN 25 UNIT in NS 250 ML IV SCH ×2 (10:16→21:02)
--- NOTE | 2017-08-07 12:17 | SOAPPROG ---
B[facility]ED[facility] Progress Note Assessment/Plan: 1. Cardiac arrest - Pt admitted on 08/06 with VT storm resulting in 35 ICD discharges. Precipitating factors include ICM and ischemia. Started on amiodarone GTT with significant improvement in arrhythmias. One episode of VT last night requiring DCCV. --> Continue amiodarone GTT --> Pt will need generator change +/- biventricular pacing prior to discharge 2. CAD - Pt has known CAD and is s/p an anterior [place]. 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 Angiogram on 08/06 with new 70 to 80 % stenosis of the proximal LCX. S/P PCI with synergy JEREMY. --> Continue asa, plavix, and lipitor. --> Resume toprol and entresto as BP will allow 3. Cardiogenic shock - Pt admitted with cardiogenic shock secondary VT storm and ischemia. Remains on IABP, dopamine, epinephrine, and vasopressin. --> Wean dopamine, epinephrine, and vasopressin as tolerated --> ? DC IABP on 08/08. 4. Respiratory failure - Pt with acute respiratory failure secondary to cardiogenic shock. S/P extubation on 08/07. 08/07/17 12:17 Subjective: Pt extubated this am recalls event leading to arrest +VT last PM requiring DCCV Objective: Vital Signs Temp Pulse Resp BP Pulse Ox 36.9 C 64 20 68/48 L 99 08/07/17 12:00 08/07/17 12:00 08/07/17 12:00 08/07/17 12:00 08/07/17 12:00 Microbiology 08/06/17 20:21 - Final Unspecified Laboratory Results 08/07/17 05:10 08/07/17 11:45 08/06/17 08/07/17 08/08/17 05:59 05:59 05:59 Intake Total 5431.0 Output Total 1597 305 Balance 3834.0 -305 PT 18.5 SEC (12.0-15.0) H 08/06/17 09:41 INR 1.53 (0.83-1.16) H 08/06/17 09:41 Physical Exam - Physical Exam General Appearance: alert, mild distress Respiratory: crackles Cardiac/Chest: regular rate, rhythm Abdomen: non-tender, soft Extremities: other (lower extremites warm to touch doppler pulses), No pedal edema ICD10 Worksheet Patient Problems: Problems Problem Status Onset Cardiomyopathy Acute Cardiac defibrillator in place Acute Ventricular tachycardia Acute Atrial fibrillation Acute Seizure Acute Cardiac arrest Acute Cardiac arrhythmia Acute
[2017-08-07] MEDS: HEPARIN/DEXTROSE 500 ML IV SCH (12:26)
[2017-08-07] MEDS: INSULIN REGULAR HUMAN 100 UNIT in NS 100 ML IV SCH (13:24)
[2017-08-07] MEDS ORDERED: LIDOCAINE 2% JELLY 20 ML (UROJECT) UR ONE (15:45)
[2017-08-07] MEDS ORDERED: D50W 25 GM/50 ML SYR IVP PRN (15:57)
[2017-08-07] MEDS ORDERED: DEXMEDETOMIDINE HCL 400 MCG in NS 100 ML IV SCH (16:00)
[2017-08-07] MEDS: INSULIN GLARGINE 100 UNITS/ML UNIT SC SCH ×2 (16:23→21:19)
[2017-08-07] MEDS: INSULIN LISPRO 100 UNIT/ML SC SCH (18:10)
[2017-08-08] MEDS: AMIODARONE HCL 200 ML IV SCH ×2 (02:20→12:00)
[2017-08-08 05:12] LABS: PLATELET COUNT 37 10^3/uL (150-400)
[2017-08-08] MEDS: INSULIN LISPRO 100 UNIT/ML SC SCH ×3 (09:02→18:05)
[2017-08-08] MEDS: CHLORHEXIDINE GLUCONATE 15 ML UDL PO SCH ×2 (09:09→21:50)
[2017-08-08] MEDS: FAMOTIDINE 20 MG/NACL 50 ML IV SCH ×2 (09:09→17:18)
[2017-08-08] MEDS: ATORVASTATIN CALCIUM 40 MG TAB TUBE SCH (09:09)
[2017-08-08] MEDS: ASPIRIN 325 MG TAB TUBE SCH (09:09)
--- NOTE | 2017-08-08 09:12 | PDINTPN ---
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 Requiring minimal oxygen. * Encephalopathy-resolved * Pain-patient markedly uncomfortable -will start oral pain medication * Thrombocytopenia-platelet count down to 37 * History of AICD placement-battery likely depleted * Non insulin-dependent diabetes-blood sugars stable * History of hypertension * VT prophylaxis * Stress ulcer prophylaxis * Sedation-adequate * Nutrition-taking p.o. * Abdominal distension-abdominal x-ray Subjective: Resting comfortably. Uncomfortable lying flat. Objective: Vital Signs Temp Pulse Resp BP Pulse Ox 37.3 C 54 L 20 114/76 97 08/08/17 07:00 08/08/17 07:00 08/08/17 07:00 08/08/17 06:00 08/08/17 07:00 Microbiology 08/06/17 20:21 - Final Unspecified Laboratory Results 08/08/17 04:30 08/08/17 04:30 08/07/17 08/08/17 08/09/17 05:59 05:59 05:59 Intake Total 5431.0 2868.7 Output Total 1597 1196 Balance 3834.0 1672.7 PT 18.5 SEC (12.0-15.0) H 08/06/17 09:41 INR 1.53 (0.83-1.16) H 08/06/17 09:41 Laboratory Results 08/08/17 04:30 08/08/17 04:30 08/08/17 08/08/17 08/07/17 04:30 04:30 23:46 POC Hgb 10.5 gm/dL L gm/dL (13.7 - 17.5) POC Hct 31 % L % (40 - 51) Plt Count 37 10^3/uL L 10^3/uL (150 - 400) Platelet Estimate DECREASED L Calcium 6.5 mg/dL L mg/dL (8.5 - 10.4) Magnesium 2.3 mg/dL mg/dL (1.6 - 2.3) Total Bilirubin 0.9 mg/dL mg/dL (0.1 - 1.4) AST 214 IU/L H IU/L (17 - 59) ALT 172 IU/L H IU/L (21 - 72) Alkaline Phosphatase 50 IU/L IU/L (38 - 126) Total Protein 4.6 g/dL L g/dL (6.3 - 8.2) Albumin 2.5 g/dL L g/dL (3.5 - 5.0) 08/07/17 19:54 POC Hgb 11.6 gm/dL L gm/dL (13.7 - 17.5) POC Hct 34 % L % (40 - 51) Plt Count Platelet Estimate Calcium Magnesium Total Bilirubin AST ALT Alkaline Phosphatase Total Protein Albumin - Time Spent With Patient Time Spent With Patient: 35 min of time spent with patient, over 1/2 involved with coordination of care or counseling. Case discussed with Cardiology and nursing. Physical Exam - Physical Exam General Appearance: WD/WN, alert EENT: PERRL/EOMI Neck: non-tender, full range of motion, supple, normal inspection Respiratory: rhonchi (Few), No respiratory distress, No wheezing Cardiac/Chest: normal peripheral pulses, regular rate, rhythm, other (Intra- aortic balloon pump sounds) Peripheral Pulses: 2+: carotid (R), carotid (L), femoral (R), femoral (L), dorsalis-pedis (R), dorsalis-pedis (L) Abdomen: normal bowel sounds, non-tender, soft Male Genitalia: deferred Rectal: deferred Skin: normal color, warm/dry Extremities: non-tender Neuro/Psych: no motor/sensory deficits, alert, normal mood/affect, oriented x 3 ICD10 Worksheet Patient Problems: Problems Problem Status Onset Atrial fibrillation Acute Cardiac arrest Acute Cardiac arrhythmia Acute Cardiac defibrillator in place Acute Seizure Acute Cardiomyopathy Acute Ventricular tachycardia Acute
--- NOTE | 2017-08-08 09:40 | HOSPPROG ---
Hospitalist Progress Note Assessment/Plan: Cardiac arrest 2/2 VT storm - Possibly hastened by worsening ischemia and low EF. Has required multiple rounds of shocks, again last night. -cont amiodarone gtt per cards AHRF due to above - extubated 08/07, on 3 LPM Cardiogenic shock - on Dopamine, Epi, Vaso drips and IABP -IABP management per cards -wean Epi first, per cards can be more arrhythmogenic -cont dopamine and vasopressin, wean as able Ischemic cardiomyopathy - EF 19%, AICD present- he received >30 shocks and battery drained -will eventually need diuresis when tolerable CAD - Occluded LAD, s/p stent to circ yesterday -cont ASA, plavix, hold for plts <20K -cont heparin drip A fib - amio as above, on heparin drip Thrombocytopenia - plts 247 --> 37. Too fast to be HIT. Pepcid could be contributory, will stop. -recheck plt level this afternoon and daily, monitor closely for bleeding -discussed with cards, hold ASA, Plavix for plt <20 or active bleeding Type 2 DM - transitioned of insulin drip to lantus + ACHS SSI yest, bg's 100's today Hyperlipidemia - cont statin Full code PPLX - change pepcid to protonix Dispo - cont inpt, ICU. High risk. Condition guarded, remains critically ill. Discussed with Dr. Soni and Dr. Mejia at bedside. 30 min crit care time Subjective: Pt feels uncomfortable, some chest discomfort with coughing ( received chest compressions on arrival). No SOB. No coulter or vision changes. No fevers. Objective: Vital Signs Temp Pulse Resp BP Pulse Ox 37.4 C 60 20 114/64 99 08/08/17 09:00 08/08/17 09:00 08/08/17 09:00 08/08/17 09:00 08/08/17 09:00 Microbiology 08/06/17 20:21 - Final Unspecified Laboratory Results 08/08/17 04:30 08/08/17 04:30 08/07/17 08/08/17 08/09/17 05:59 05:59 05:59 Intake Total 5431.0 2868.7 Output Total 1597 1196 Balance 3834.0 1672.7 PT 18.5 SEC (12.0-15.0) H 08/06/17 09:41 INR 1.53 (0.83-1.16) H 08/06/17 09:41 - Physical Exam Constitutional: no apparent distress Eyes: PERRL Ears, Nose, Mouth, Throat: moist mucous membranes Cardiovascular: regular rate and rhythym Respiratory: no respiratory distress, inspiratory crackles Gastrointestinal: normoactive bowel sounds, soft, non-tender abdomen Skin: warm Musculoskeletal: generalized weakness Neurologic: AAOx3 Psychiatric: interacting appropriately ICD10 Worksheet Patient Problems: Problems Problem Status Onset Atrial fibrillation Acute Cardiac arrest Acute Cardiac arrhythmia Acute Cardiac defibrillator in place Acute Seizure Acute Cardiomyopathy Acute Ventricular tachycardia Acute
--- NOTE | 2017-08-08 09:48 | SOAPPROG ---
SOAP Progress Note Assessment/Plan: Assessment: CHF MD hospital/ ICU note: 66 y/o man with known severe ischemic systolic CHF and AICD with recent NQWMI and VT storm with > 20 AICD shocks now s/o JEREMY to LCX with cardiogenic shock and LVEF 19%. He is extubated but still on IABP at 1:1 and IV Epi, Vasopressin, Dopamine, Amiodarone and Heparin gtt (s). He reports sore all over and mild shortness of breath. No GARNETT or abdominal pain. No malignant VT in last 36hrs. CVP 13mmHG. PLAN: 1)try to wean off Epi gtt today for MAP > 50mmHg. If needed could increase Dopamine gtt to 5mcg/kg/min to help get off Epi gtt today. 2)keep IABP at 1:1 and other gtts without changes. 3)hold ASA and Plavix for PLT < 20K or signs of active bleeding in particular any ICH. 4)goal CVP 8-12 giving prn IV lasix as needed. 5)no ACEI or BB yet. case discussed with Drs. Soni and Jordan and GARMENT STEAMER. 08/08/17 09:44 Subjective: He is tired and sore (hips and anterior sternum). Denies chest pressure or GARNETT. Mild shortness of breath lying in bed. No abdominal pain. Objective: Vital Signs Temp Pulse Resp BP Pulse Ox 37.4 C 60 20 114/64 99 08/08/17 09:00 08/08/17 09:00 08/08/17 09:00 08/08/17 09:00 08/08/17 09:00 Microbiology 08/06/17 20:21 - Final Unspecified Laboratory Results 08/08/17 04:30 08/08/17 04:30 08/07/17 08/08/17 08/09/17 05:59 05:59 05:59 Intake Total 5431.0 2868.7 Output Total 1597 1196 Balance 3834.0 1672.7 PT 18.5 SEC (12.0-15.0) H 08/06/17 09:41 INR 1.53 (0.83-1.16) H 08/06/17 09:41 Physical Exam - Physical Exam General Appearance: alert EENT: PERRL/EOMI Neck: non-tender Respiratory: crackles (occassional rales at bases bilaterally, no wheezes.) Cardiac/Chest: regular rate, rhythm, gallop, JVD, systolic murmur Peripheral Pulses: 1+: femoral (R), femoral (L), dorsalis-pedis (R), dorsalis- pedis (L), 2+: carotid (R), carotid (L) Abdomen: non-tender, No rebound Skin: warm/dry Extremities: pedal edema (no bleeding or hematoma around IABP insertion site of right groin.) Neuro/Psych: alert ICD10 Worksheet Patient Problems: Problems Problem Status Onset Atrial fibrillation Acute Cardiac arrest Acute Cardiac arrhythmia Acute Cardiac defibrillator in place Acute Seizure Acute Cardiomyopathy Acute Ventricular tachycardia Acute
[2017-08-08] MEDS: HYDROCODONE/APAP 5/325 TAB PO PRN ×3 (09:49→23:12)
[2017-08-08] MEDS: CLOPIDOGREL BISULFATE 75 MG TAB TUBE SCH (09:50)
[2017-08-08] MEDS: PANTOPRAZOLE SODIUM 40 MG VIAL IVP SCH (11:01)
[2017-08-08 15:48] LABS: PLATELET COUNT 28 10^3/uL (150-400)
[2017-08-08] MEDS: VASOPRESSIN 25 UNIT in NS 250 ML IV SCH (19:32)
[2017-08-08] MEDS: ONDANSETRON 4 MG/2 ML VIAL IVP PRN (21:26)
[2017-08-08] MEDS: INSULIN GLARGINE 100 UNITS/ML UNIT SC SCH (21:50)
[2017-08-09] MEDS: HEPARIN 10,000 UNIT/10 ML MDV (1,000 UNIT/ML) IVP PRN (05:56)
[2017-08-09 06:07] LABS: PLATELET COUNT 31 10^3/uL (150-400)
[2017-08-09] MEDS: VASOPRESSIN 25 UNIT in NS 250 ML IV SCH (06:19)
[2017-08-09] MEDS: INSULIN LISPRO 100 UNIT/ML SC SCH ×3 (08:07→18:07)
--- NOTE | 2017-08-09 09:01 | PDINTPN ---
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 Requiring minimal oxygen. * Encephalopathy-resolved * Pain-patient markedly uncomfortable -will start oral pain medication * Thrombocytopenia-platelet count down to 31 -follow closely * History of AICD placement-battery likely depleted * Non insulin-dependent diabetes-blood sugars stable * History of hypertension * VTE prophylaxis * Stress ulcer prophylaxis * Sedation-adequate * Nutrition-taking p.o. Subjective: Resting comfortably. Pain better tolerated. Awake and alert Objective: Vital Signs Temp Pulse Resp BP Pulse Ox 36.8 C 53 L 15 107/50 L 99 08/09/17 08:00 08/09/17 08:00 08/09/17 08:00 08/09/17 08:00 08/09/17 08:00 Microbiology 08/06/17 20:21 - Final Unspecified Sputum Culture - Final Laboratory Results 08/09/17 04:30 08/09/17 04:30 08/08/17 08/09/17 08/10/17 05:59 05:59 05:59 Intake Total 2868.7 1954.5 Output Total 1196 760 30 Balance 1672.7 1194.5 -30 PT 18.5 SEC (12.0-15.0) H 08/06/17 09:41 INR 1.53 (0.83-1.16) H 08/06/17 09:41 Laboratory Results 08/09/17 04:30 08/09/17 04:30 08/09/17 04:30 Calcium 6.7 mg/dL L mg/dL (8.5 - 10.4) Total Bilirubin 0.9 mg/dL mg/dL (0.1 - 1.4) AST 169 IU/L H IU/L (17 - 59) ALT 145 IU/L H IU/L (21 - 72) Alkaline Phosphatase 55 IU/L IU/L (38 - 126) Total Protein 5.0 g/dL L g/dL (6.3 - 8.2) Albumin 2.8 g/dL L g/dL (3.5 - 5.0) - Time Spent With Patient Time Spent With Patient: 35 min of time spent with patient, over 1/2 involved with coordination of care or counseling Physical Exam - Physical Exam General Appearance: WD/WN, alert, no apparent distress EENT: PERRL/EOMI Neck: non-tender, full range of motion, supple, normal inspection Respiratory: crackles (Few), No wheezing Cardiac/Chest: irregularly irregular, other (Intra-aortic balloon pump sounds) Peripheral Pulses: 2+: carotid (R), carotid (L), femoral (R), femoral (L), dorsalis-pedis (R), dorsalis-pedis (L) Abdomen: normal bowel sounds, non-tender, soft Male Genitalia: deferred Rectal: deferred Skin: normal color, warm/dry Extremities: non-tender, normal inspection Neuro/Psych: no motor/sensory deficits, alert, normal mood/affect, oriented x 3 ICD10 Worksheet Patient Problems: Problems Problem Status Onset Atrial fibrillation Acute Cardiac arrest Acute Cardiac arrhythmia Acute Cardiac defibrillator in place Acute Seizure Acute Cardiomyopathy Acute Ventricular tachycardia Acute
[2017-08-09] MEDS ORDERED: PROTOCOL CALCIUM 1 DOSE IV PRN (09:09)
--- NOTE | 2017-08-09 09:25 | HOSPPROG ---
Hospitalist Progress Note Assessment/Plan: Cardiac arrest / VT storm - Possibly hastened by worsening ischemia and low EF. Has required multiple rounds of shocks, again last night. -cont amiodarone gtt per cards, likely change to po tomorrow Cardiogenic shock - Epi weaned off yest, remains on Dopamine, Vaso drips and IABP -IABP management per cards -wean Dopamine and Vasopressin today AHRF due to above - extubated 08/07, on 2 LPM Ischemic cardiomyopathy - EF 19%, CVP 17 this am. AICD present - he received > 30 shocks and battery drained -Lasix today per cards CAD - Occluded LAD, s/p stent to circ -cont ASA, plavix, hold for plts <20K -cont heparin drip A fib - amio as above, on heparin drip Thrombocytopenia - plts 247 --> 28 --> 31. Too fast to be HIT. Pepcid could be contributory, which was stopped yesterday. -monitor closely for bleeding -discussed with cards, hold ASA, Plavix for plt <20 or active bleeding Type 2 DM - transitioned off insulin drip to lantus + ACHS SSI yest, bg's 100's today Hyperlipidemia - cont statin Full code PPLX - change pepcid to protonix Dispo - cont inpt, ICU. High risk. Condition guarded, remains critically ill. Discussed with Dr. Soni and Dr. Mejia at bedside. 30 min crit care time Subjective: Pt resting comfortably. No CP or SOB. No events overnight. No VT since night. Objective: Vital Signs Temp Pulse Resp BP Pulse Ox 36.8 C 53 L 15 107/50 L 99 08/09/17 08:00 08/09/17 08:00 08/09/17 08:00 08/09/17 08:00 08/09/17 08:00 Microbiology 08/06/17 20:21 - Final Unspecified Sputum Culture - Final Laboratory Results 08/09/17 04:30 08/09/17 04:30 08/08/17 08/09/17 08/10/17 05:59 05:59 05:59 Intake Total 2868.7 1954.5 Output Total 1196 760 30 Balance 1672.7 1194.5 -30 PT 18.5 SEC (12.0-15.0) H 08/06/17 09:41 INR 1.53 (0.83-1.16) H 08/06/17 09:41 - Physical Exam Constitutional: no apparent distress Eyes: PERRL Ears, Nose, Mouth, Throat: moist mucous membranes Cardiovascular: regular rate and rhythym Respiratory: no respiratory distress Gastrointestinal: normoactive bowel sounds, soft, non-tender abdomen Skin: warm Musculoskeletal: generalized weakness Neurologic: AAOx3 Psychiatric: interacting appropriately ICD10 Worksheet Patient Problems: Problems Problem Status Onset Atrial fibrillation Acute Cardiac arrest Acute Cardiac arrhythmia Acute Cardiac defibrillator in place Acute Seizure Acute Cardiomyopathy Acute Ventricular tachycardia Acute
--- NOTE | 2017-08-09 09:30 | SOAPPROG ---
SOAP Progress Note Assessment/Plan: Assessment: CHF MD hospital/ ICU note: 66 y/o man with known severe ischemic systolic CHF and AICD with recent NQWMI and VT storm with > 20 AICD shocks now s/o JEREMY to LCX with cardiogenic shock and LVEF 19%. He is extubated but still on IABP at 1:1 and IV Vasopressin, Dopamine, Amiodarone and Heparin gtt (s). He reports sore all over and mild shortness of breath. No GARNETT or abdominal pain. No malignant VT in last 36hrs. CVP 17 mmHG. He is making progress the last 24hrs with signs cardiac function returning some. Off IV Epi gtt last 24hrs and on lower doses of Vasopressin and Dopamine. He denies CP, PND or abdominal pain or right groin pain. PLAN: 1)lasix 60mg IV x one 2)replace IV calcium 3)try to wean off Vasopressin today keeping MAP > 50. If off Vasopressin easily , try to wean next Dopamine gtt to off keeping MAP > 50 4)continue IABP 1:1 another 24hrs. Hopefully once off IV Vasopressin, change to 1:2 tomorrow AM and hold Heparin gtt for 2hrs and remove Thursday afternoon. Will reassess on rounds tomorrow AM. discussed with Drs. Soni and Jordan, [employer], patient and his who was at bedside. 08/09/17 09:25 Subjective: still weak and sore all over. Denies chest pressure, PND or abdominal pain or pain in right groin or right foot. Objective: Vital Signs Temp Pulse Resp BP Pulse Ox 36.8 C 53 L 15 107/50 L 99 08/09/17 08:00 08/09/17 08:00 08/09/17 08:00 08/09/17 08:00 08/09/17 08:00 Microbiology 08/06/17 20:21 - Final Unspecified Sputum Culture - Final Laboratory Results 08/09/17 04:30 08/09/17 04:30 08/08/17 08/09/17 08/10/17 05:59 05:59 05:59 Intake Total 2868.7 1954.5 Output Total 1196 760 30 Balance 1672.7 1194.5 -30 PT 18.5 SEC (12.0-15.0) H 08/06/17 09:41 INR 1.53 (0.83-1.16) H 08/06/17 09:41 Physical Exam - Physical Exam General Appearance: alert (critically ill man lying in bed with IABP in.) Neck: non-tender Respiratory: lungs clear Cardiac/Chest: regular rate, rhythm, gallop, JVD, systolic murmur Peripheral Pulses: 2+: carotid (R), carotid (L), femoral (R), femoral (L), dorsalis-pedis (R), dorsalis-pedis (L) Abdomen: non-tender, No guarding, No rebound Skin: warm/dry Extremities: No pedal edema Neuro/Psych: alert ICD10 Worksheet Patient Problems: Problems Problem Status Onset Atrial fibrillation Acute Cardiac arrest Acute Cardiac arrhythmia Acute Cardiac defibrillator in place Acute Seizure Acute Cardiomyopathy Acute Ventricular tachycardia Acute
[2017-08-09] MEDS ORDERED: FUROSEMIDE 100 MG/10 ML VIAL IVP ONE (09:32)
[2017-08-09] MEDS: CEPACOL LOZENGE PO PRN (10:12)
[2017-08-09] MEDS: CLOPIDOGREL BISULFATE 75 MG TAB TUBE SCH (10:13)
[2017-08-09] MEDS: ASPIRIN 325 MG TAB TUBE SCH (10:13)
[2017-08-09] MEDS: ATORVASTATIN CALCIUM 40 MG TAB TUBE SCH (10:13)
[2017-08-09] MEDS: CHLORHEXIDINE GLUCONATE 15 ML UDL PO SCH ×2 (10:14→21:20)
[2017-08-09] MEDS: PANTOPRAZOLE SODIUM 40 MG VIAL IVP SCH (10:14)
[2017-08-09] MEDS: ONDANSETRON 4 MG/2 ML VIAL IVP PRN ×2 (10:54→14:48)
--- NOTE | 2017-08-09 12:08 | ASMTCMCOM ---
CM Note CM Note Notes: Will need order for evals by therapies for discharge needs. CM to follow. Date Signed: 08/09/2017 12:07 PM Electronically Signed By:Celine Mata LCSW
[2017-08-09] MEDS ORDERED: CALCIUM GLUCONATE 50 ML IV ONE (13:42)
[2017-08-09] MEDS: AMIODARONE HCL 200 ML IV SCH ×3 (14:55→23:23)
[2017-08-09] MEDS ORDERED: POTASSIUM Cl (KCl) 50 ML IV ONE (18:22)
[2017-08-09] MEDS ORDERED: TEMAZEPAM 15 MG CAP PO ONE (20:15)
[2017-08-09] MEDS: HYDROCODONE/APAP 5/325 TAB PO PRN (21:19)
[2017-08-09] MEDS: INSULIN GLARGINE 100 UNITS/ML UNIT SC SCH (21:19)
[2017-08-10] MEDS: HYDROCODONE/APAP 5/325 TAB PO PRN ×2 (04:51→12:06)
[2017-08-10] MEDS: HEPARIN 10,000 UNIT/10 ML MDV (1,000 UNIT/ML) IVP PRN (05:24)
--- NOTE | 2017-08-10 08:38 | CPEKG ---
Heart Rate: 67 RR Interval: 896 P-R Interval: 176 QRSD Interval: 136 QT Interval: 444 QTC Interval: 469 P [place]: 78 QRS [place]: -60 T Wave [place]: 61 EKG Severity - ABNORMAL ECG - EKG Impression: SINUS RHYTHM EKG Impression: NONSPECIFIC IVCD WITH LAD EKG Impression: LATERAL INFARCT, AGE INDETERMINATE Electronically Signed By: El Stoddard 10-Aug-2017 10:06:54
[2017-08-10] MEDS: ATORVASTATIN CALCIUM 40 MG TAB TUBE SCH (08:57)
[2017-08-10] MEDS: CLOPIDOGREL BISULFATE 75 MG TAB TUBE SCH (08:57)
[2017-08-10] MEDS: ASPIRIN 325 MG TAB TUBE SCH (08:57)
[2017-08-10] MEDS: INSULIN LISPRO 100 UNIT/ML SC SCH ×3 (08:58→16:44)
[2017-08-10] MEDS: PANTOPRAZOLE SODIUM 40 MG VIAL IVP SCH (08:58)
--- NOTE | 2017-08-10 10:26 | HOSPPROG ---
Hospitalist Progress Note Assessment/Plan: #Cardiac arrest 2/2 VT storm #Cardiogenic shock: IABP in place; wean off pressors and remove pimp today #Acute hypoxic resp failure: due to volume overload. wean as tolerated #Acutely decompensated systolic HF/ischemic cardiomyopathy: EF 19%. AICD in place, but battery drained. Cont IV diuresis #CAD: occluded LAD, PCI to LCX. ASA, Plavix, statin #Atrial fibrillation: heparin gtt, amiodarone gtt #Thrombocytopenia: platelets stable #Type 2 DM: holding metformin. Glargine, SSI in hospital #Diet: cardiac #Disp: cont ICU admission with cardiogenic shock, IABP Subjective: pain from urinary catheter Objective: Vital Signs Temp Pulse Resp BP Pulse Ox 37.1 C 63 10 L 110/45 L 100 08/10/17 10:00 08/10/17 10:00 08/10/17 10:00 08/10/17 10:00 08/10/17 10:00 Laboratory Results 08/10/17 04:35 08/10/17 04:35 08/09/17 08/10/17 08/11/17 05:59 05:59 05:59 Intake Total 1954.5 2537 240 Output Total 760 4680 400 Balance 1194.5 -2143 -160 PT 18.5 SEC (12.0-15.0) H 08/06/17 09:41 INR 1.53 (0.83-1.16) H 08/06/17 09:41 - Time Spent With Patient Time Spent with Patient: greater than 35 minutes Time Spent with Patient: Greater than 35 minutes spent on this patients care, greater than 50% of time spent counseling, educating, and coordinating care regarding the above mentioned plan. - Physical Exam Constitutional: no apparent distress, other (fatigued) Ears, Nose, Mouth, Throat: moist mucous membranes Cardiovascular: regular rate and rhythym Respiratory: inspiratory crackles Gastrointestinal: normoactive bowel sounds Genitourinary: laird in urethra Musculoskeletal: other (IABP in place) Neurologic: AAOx3, CN II-XII Intact Psychiatric: interacting appropriately ICD10 Worksheet Patient Problems: Problems Problem Status Onset Cardiomyopathy Acute Cardiac defibrillator in place Acute Ventricular tachycardia Acute Atrial fibrillation Acute Seizure Acute Cardiac arrest Acute Cardiac arrhythmia Acute
[2017-08-10] MEDS: ONDANSETRON 4 MG/2 ML VIAL IVP PRN ×2 (10:36→20:32)
[2017-08-10] MEDS: AMIODARONE HCL 200 ML IV SCH ×2 (10:58→22:14)
[2017-08-10] MEDS: CHLORHEXIDINE GLUCONATE 15 ML UDL PO SCH ×2 (12:36→22:18)
[2017-08-10] MEDS ORDERED: LIDOCAINE 1% 300 MG/30 ML SDV ONE ×2 (13:38→14:47)
[2017-08-10] MEDS ORDERED: POTASSIUM Cl (KCl) 50 ML IV ONE (13:43)
[2017-08-10] MEDS ORDERED: ALTEPLASE 2 MG VIAL IVP PRN (14:20)
[2017-08-10] MEDS ORDERED: FUROSEMIDE 20 MG/2 ML VIAL IVP ONE (14:28)
--- NOTE | 2017-08-10 14:29 | PDINTPN ---
Custodial Foreman Progress Note Assessment/Plan: Assessment: * Status post cardiac arrest-this occurred in the setting of upwards of 30 defibrillation is from his AICD * Recurrent VF: Now in NSR, not further episodes since stenting and amiodarone * Coronary artery disease-status post cardiac stenting * Intra-aortic balloon pump: Now weaning off. * Shock-Improved. Now weaned off pressors * Atrial fibrillation * Ischemic cardiomyopathy: Most recent EF 19%. * Acute respiratory failure-stable off mechanical ventilation. Requiring minimal oxygen. * Encephalopathy-resolved * Pain: Improved * Thrombocytopenia-platelet count low but sup from yesterday * History of AICD placement-battery likely depleted * Non insulin-dependent diabetes: blood sugars stable * History of hypertension * VT prophylaxis * Stress ulcer prophylaxis * Nutrition-taking p.o. Plan: Repeat Lasix, then D/C Benitez. Hopefully can D/C IABP, then increase activity PICC line if unable to get good IV access. 08/10/17 14:36 Subjective: Feels OK, denies pain. Objective: Vital Signs Temp Pulse Resp BP Pulse Ox 37.1 C 59 L 10 L 97/45 L 100 08/10/17 14:10 08/10/17 14:10 08/10/17 14:10 08/10/17 14:10 08/10/17 14:10 Laboratory Results 08/10/17 04:35 08/10/17 11:15 08/09/17 08/10/17 08/11/17 05:59 05:59 05:59 Intake Total 1954.5 2537 399 Output Total 760 4680 750 Balance 1194.5 -2143 -351 PT 18.5 SEC (12.0-15.0) H 08/06/17 09:41 INR 1.53 (0.83-1.16) H 08/06/17 09:41 Physical Exam - Physical Exam General Appearance: alert, no apparent distress EENT: normal ENT inspection Neck: normal inspection Respiratory: lungs clear, normal breath sounds Cardiac/Chest: normal peripheral pulses, regular rate, rhythm, edema (1+ anasarca) Abdomen: non-tender, soft Skin: normal color, warm/dry Extremities: non-tender Neuro/Psych: alert, normal mood/affect, oriented x 3 ICD10 Worksheet Patient Problems: Problems Problem Status Onset Atrial fibrillation Acute Cardiac arrest Acute Cardiac arrhythmia Acute Cardiac defibrillator in place Acute Seizure Acute Cardiomyopathy Acute Ventricular tachycardia Acute
--- NOTE | 2017-08-10 14:33 | SOAPPROG ---
BRAEDEN Progress Note Assessment/Plan: Assessment: 1. non STEMI 2. chronic coronary artery disease 3. severe ischemic cardiomyopathy 4. acute on chronic systolic heart failure 5. Cardiogenic shock Right now is mean arterial pressures acceptable and his balloon pump has been weaned from 1-1 to 1-2 tolerated that well and after 40 minutes w put on one-to - 4. he is tolerating that at this point time is heparin is being held and we are going to discontinue the balloon pump. This believe that it will be tolerated without it he is very sick about his leg been down would like us to move on this. I have reviewed the records from the Heart failure service suit been taking care of him up until today. He is currently off his vaso present. He is off his dopamine He is upset never he is stable He has had a recent non-Q-wave myocardial infarction he had ventricular tachycardia storm with over 20 shocks. He received a drug-eluting stent to the left circumflex. I have known him for 15 years and have answered all he and his 's questions. Think he will do quite well. His ICD battery has and that will be replaced during this hospitalization. Plan: 08/10/17 14:30 Subjective: he is feeling improved today. he does not have chest pain He is on very uncomfortable from lying flat in bed for days. he has no nausea vomiting he has no bleeding. He is not having fevers or chills. he is not lightheaded or dizzy. his is here and I have spoken with her. Objective: Vital Signs Temp Pulse Resp BP Pulse Ox 37.1 C 59 L 10 L 97/45 L 100 08/10/17 14:10 08/10/17 14:10 08/10/17 14:10 08/10/17 14:10 08/10/17 14:10 Laboratory Results 08/10/17 04:35 08/10/17 11:15 08/09/17 08/10/17 08/11/17 05:59 05:59 05:59 Intake Total 1954.5 2537 399 Output Total 760 9940 750 Balance 1194.5 -2143 -351 PT 18.5 SEC (12.0-15.0) H 08/06/17 09:41 INR 1.53 (0.83-1.16) H 08/06/17 09:41 Selected Entries 08/10/17 08/10/17 08/10/17 12:00 13:00 13:43 Blood Pressure 99/75 L 103/45 L 85/42 L Mean Arterial 83 64 56 L Pressure (MAP) 08/10/17 14:10 Blood Pressure 97/45 L Mean Arterial 62 Pressure (MAP) Laboratory Tests 08/06/17 08/06/17 08/06/17 08:30 20:30 20:36 WBC 15.00 H Hct 38.1 L POC Glucose 176 H Creatine Kinase 5059 H Troponin I 21.500 H 08/06/17 08/07/17 08/07/17 22:20 00:12 02:18 WBC Hct POC Glucose 198 H 229 H 198 H Creatine Kinase Troponin I 08/07/17 08/07/17 08/08/17 05:10 05:10 14:50 WBC 13.30 H 6.61 Hct 28.7 L POC Glucose Creatine Kinase 6383 H Troponin I 08/09/17 04:30 WBC 7.06 Hct 27.9 L POC Glucose Creatine Kinase Troponin I Physical Exam - Physical Exam General Appearance: alert, mild distress Respiratory: decreased breath sounds, rhonchi Cardiac/Chest: regular rate, rhythm, systolic murmur Abdomen: non-tender, soft, No organomegaly Skin: pallor, No diaphoresis Extremities: non-tender Neuro/Psych: alert, normal mood/affect ICD10 Worksheet Patient Problems: Problems Problem Status Onset Atrial fibrillation Acute Cardiac arrest Acute Cardiac arrhythmia Acute Cardiac defibrillator in place Acute Seizure Acute Cardiomyopathy Acute Ventricular tachycardia Acute
--- NOTE | 2017-08-10 16:19 | CPIP ---
[f rep st] INVASIVE CARDIAC PROCEDURE PROCEDURE: Intra-aortic balloon pump removal. The patient was prepared for having his intra-aortic balloon pump removed by my discussing it with davie rodriguez and his , and all their questions were answered. He was weaned off 3 pressors over the last 24 hours and his blood pressure was stable with a mean art erial pressure in the 60 range. The balloon pump was turned from 1:1 to 1:2 for an hour approximately and the patient had no deterior ation of his hemodynamics. It was then turned down to 1:4 for an hour and a half with no further det erioration. As we were weaning him, his heparin became subtherapeutic and he was not rebolused. The n 1 hour prior to removal of the balloon pump, heparin was stopped. His pulses were monitored throughout the procedure with the Doppler. Xylocaine anesthesia was used locally and the patient was given 2 mg of IV morphine and during the re moval he received another 3 mg of IV morphine. The balloon pump was removed and the venous IV sheath was removed from the right femoral artery and femoral vein, and there were no complications. Every 4 minutes, pulses were returned to the extremity of the right leg. He had excellent color. Pressure was applied for nearly 20 minutes. At the end of that time, there was no hematoma, there was no spo ntaneous bleeding, and there were no complications. I stayed with the patient for the next 15 minutes. I spoke to his extensively. We answered all his questions. The FemoStop was applied at the end of manual pressure and it is going to remain on for several hours. They are going to be monitoring his pulses throughout the time. Blood loss was 15 cc. Complications : None. His extremity was warm, full of color, in excellent condition at the end of the removal. /[id number]/MODL
--- NOTE | 2017-08-10 16:29 | ASMTCMCOM ---
CM Note CM Note Notes: Met with , aLya and dtr Derrick in a "Family Mtg" See Family Meeting Notes. Pt turns 67 in August and would like to retire. 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 Therapies will need to eval for discharge needs. CM to follow. Date Signed: 08/10/2017 04:29 PM Electronically Signed By:Celine Mata LCSW
[2017-08-10] MEDS: INSULIN GLARGINE 100 UNITS/ML UNIT SC SCH (22:14)
[2017-08-11] MEDS: HYDROCODONE/APAP 5/325 TAB PO PRN ×3 (05:39→20:59)
[2017-08-11] MEDS: CEPACOL LOZENGE PO PRN ×2 (07:18→14:12)
[2017-08-11] MEDS ORDERED: CALCIUM GLUCONATE 50 ML IV ONE (07:29)
[2017-08-11] MEDS ORDERED: POTASSIUM Cl (KCl) 100 ML IV SCH ×2 (07:30→08:00)
[2017-08-11] MEDS ORDERED: POTASSIUM CL 10 MEQ TAB PO ONE ×2 (08:30→14:30)
[2017-08-11] MEDS: INSULIN LISPRO 100 UNIT/ML SC SCH ×3 (08:58→18:42)
[2017-08-11] MEDS: CHLORHEXIDINE GLUCONATE 15 ML UDL PO SCH ×2 (09:21→20:31)
[2017-08-11] MEDS: PANTOPRAZOLE SODIUM 40 MG TAB PO SCH (09:21)
[2017-08-11] MEDS: ATORVASTATIN CALCIUM 40 MG TAB TUBE SCH (09:21)
[2017-08-11] MEDS: ASPIRIN 325 MG TAB TUBE SCH (09:21)
[2017-08-11] MEDS: CLOPIDOGREL BISULFATE 75 MG TAB TUBE SCH (09:21)
--- NOTE | 2017-08-11 10:05 | HOSPPROG ---
Hospitalist Progress Note Assessment/Plan: #Cardiac arrest 2/2 VT storm #Cardiogenic shock: weaned off pressors and IABP removed yesterday #Acute hypoxic resp failure: due to volume overload. wean as tolerated #Acutely decompensated systolic HF/ischemic cardiomyopathy: EF 19%. AICD in place, but battery drained. -Cardiology to deciding whether to go Bi-V pacer #CAD: occluded LAD, PCI to LCX. ASA, Plavix, statin #Atrial fibrillation: heparin gtt, change to oral amiodarone #Thrombocytopenia: platelets stable #Type 2 DM: holding metformin. Glargine, SSI in hospital #Diet: cardiac #Disp: stable for transfer to PCU Subjective: chest pain with cough. Less dizzy today Objective: Vital Signs Temp Pulse Resp BP Pulse Ox 36.7 C 68 14 101/45 L 100 08/11/17 07:56 08/11/17 09:00 08/11/17 09:00 08/11/17 09:00 08/11/17 09:00 Laboratory Results 08/10/17 04:35 08/11/17 05:35 08/10/17 08/11/17 08/12/17 05:59 05:59 05:59 Intake Total 2537 1914 Output Total 4680 3700 Balance -2143 -1786 PT 18.5 SEC (12.0-15.0) H 08/06/17 09:41 INR 1.53 (0.83-1.16) H 08/06/17 09:41 - Time Spent With Patient Time Spent with Patient: greater than 35 minutes Time Spent with Patient: Greater than 35 minutes spent on this patients care, greater than 50% of time spent counseling, educating, and coordinating care regarding the above mentioned plan. - Physical Exam Constitutional: no apparent distress Eyes: PERRL Cardiovascular: regular rate and rhythym, edema (trace pedal edema) Respiratory: inspiratory crackles Gastrointestinal: normoactive bowel sounds, soft, non-tender abdomen ICD10 Worksheet Patient Problems: Problems Problem Status Onset Atrial fibrillation Acute Cardiac arrest Acute Cardiac arrhythmia Acute Cardiac defibrillator in place Acute Seizure Acute Cardiomyopathy Acute Ventricular tachycardia Acute
[2017-08-11] MEDS: AMIODARONE HCL 200 MG TAB PO SCH ×2 (11:45→20:28)
[2017-08-11] MEDS ORDERED: POTASSIUM Cl (KCl) 50 ML IV SCH (13:26)
[2017-08-11] MEDS ORDERED: PROTOCOL POTASSIUM 1 DOSE MISC PRN (14:27)
[2017-08-11] MEDS: INSULIN GLARGINE 100 UNITS/ML UNIT SC SCH (20:28)
[2017-08-12] MEDS: CEPACOL LOZENGE PO PRN ×2 (07:27→18:52)
[2017-08-12] MEDS: INSULIN LISPRO 100 UNIT/ML SC SCH ×3 (07:29→18:48)
[2017-08-12] MEDS: HYDROCODONE/APAP 5/325 TAB PO PRN (08:19)
[2017-08-12] MEDS: AMIODARONE HCL 200 MG TAB PO SCH ×2 (08:20→21:14)
[2017-08-12] MEDS: CLOPIDOGREL BISULFATE 75 MG TAB PO SCH (08:21)
[2017-08-12] MEDS: ATORVASTATIN CALCIUM 40 MG TAB PO SCH (08:22)
[2017-08-12] MEDS: PANTOPRAZOLE SODIUM 40 MG TAB PO SCH (08:23)
[2017-08-12] MEDS: ASPIRIN 325 MG TAB PO SCH (08:23)
[2017-08-12] MEDS ORDERED: CALCIUM GLUCONATE 50 ML IV ONE (10:04)
[2017-08-12] MEDS: CHLORHEXIDINE GLUCONATE 15 ML UDL PO SCH (10:40)
[2017-08-12] MEDS ORDERED: ONDANSETRON DISINTEGRATING 4 MG TAB PO PRN (10:51)
--- NOTE | 2017-08-12 11:38 | HOSPPROG ---
Hospitalist Progress Note Assessment/Plan: #Cardiac arrest / VT storm #Cardiogenic shock: weaned off pressors and IABP removed 08/10 #Acute hypoxic resp failure: due to volume overload. Resolved #Acutely decompensated systolic HF/ischemic cardiomyopathy: EF 19%. -ICD battery change tomorrow. Consider full AC after that -dose IV Lasix now #CAD: occluded LAD, PCI to LCX. ASA, Plavix, statin #Atrial fibrillation: heparin gtt, change to oral amiodarone #Thrombocytopenia: platelets trending up, 111 today #Type 2 DM: holding metformin. Glargine, SSI in hospital #Deconditioning: PT/OT #Diet: cardiac. NPO after MN #Disp: stable for transfer to PCU Subjective: no SOB. Mild CP with deep breath Objective: Vital Signs Temp Pulse Resp BP Pulse Ox 36.7 C 74 16 113/49 L 91 L 08/12/17 07:35 08/12/17 07:35 08/12/17 07:35 08/12/17 07:35 08/12/17 07:35 Microbiology 08/06/17 20:00 Blood Culture - Final Blood 08/06/17 20:00 Blood Culture - Final Blood Laboratory Results 08/12/17 05:35 08/12/17 05:35 08/11/17 08/12/17 08/13/17 05:59 05:59 05:59 Intake Total 1914 1030 600 Output Total 3700 975 Balance -1786 55 600 PT 18.5 SEC (12.0-15.0) H 08/06/17 09:41 INR 1.53 (0.83-1.16) H 08/06/17 09:41 - Time Spent With Patient Time Spent with Patient: greater than 35 minutes Time Spent with Patient: Greater than 35 minutes spent on this patients care, greater than 50% of time spent counseling, educating, and coordinating care regarding the above mentioned plan. - Physical Exam Constitutional: no apparent distress Eyes: PERRL Ears, Nose, Mouth, Throat: moist mucous membranes Cardiovascular: regular rate and rhythym, edema (+1 pitting edema BL legs) Respiratory: no respiratory distress, inspiratory crackles Gastrointestinal: normoactive bowel sounds, soft, non-tender abdomen Genitourinary: no bladder fullness Skin: warm Musculoskeletal: full muscle strength Neurologic: AAOx3, CN II-XII Intact Psychiatric: interacting appropriately ICD10 Worksheet Patient Problems: Problems Problem Status Onset Atrial fibrillation Acute Cardiac arrest Acute Cardiac arrhythmia Acute Cardiac defibrillator in place Acute Seizure Acute Cardiomyopathy Acute Ventricular tachycardia Acute
[2017-08-12] MEDS: FUROSEMIDE 20 MG/2 ML VIAL IVP SCH (12:03)
[2017-08-12] MEDS ORDERED: POTASSIUM CL 10 MEQ TAB PO ONE ×2 (12:38→20:35)
--- NOTE | 2017-08-12 12:41 | SOAPPROG ---
SOAP Progress Note Assessment/Plan: Assessment: 1. non STEMI 2. chronic coronary artery disease 3. severe ischemic cardiomyopathy 4. acute on chronic systolic heart failure 5. Cardiogenic shock Right now is mean arterial pressures acceptable and his balloon pump has been weaned from 1-1 to 1-2 tolerated that well and after 40 minutes w put on one-to - 4. he is tolerating that at this point time is heparin is being held and we are going to discontinue the balloon pump. This believe that it will be tolerated without it he is very sick about his leg been down would like us to move on this. I have reviewed the records from the Heart failure service suit been taking care of him up until today. He is currently off his vaso present. He is off his dopamine He is upset never he is stable He has had a recent non-Q-wave myocardial infarction he had ventricular tachycardia storm with over 20 shocks. He received a drug-eluting stent to the left circumflex. I have known him for 15 years and have answered all he and his 's questions. Think he will do quite well. His ICD battery has and that will be replaced during this hospitalization. Plan: 08/10/17 14:30 08/12/17 12:42 1. Non STEMI 2. Chronic coronary artery disease 3. Severe ischemic cardiomyopathy 4. Acute on chronic systolic heart failure 5. Cardiogenic shock 6. Dyslipidemia 7. Disability 8.Atrial fibrillation 9. ICD 10.Ventricular tachycardia The patient is tolerating his current acute stent very well. He is on aspirin and he is on his Plavix. He has no chest pain. He is very frightened about his ICD going off again. He is not in heart failure today. He has been on Entresto prior to coming in the hospital and I would not start that yet. That will be a good medicine for him to go back on however as he gets close to leaving or once he is seen in follow-up. He also has a history of atrial fibrillation and has been on Eliquis. He needs to be on dual antiplatelet therapy so we will have to watch him very carefully for bleeding. He is going to get an ICD battery replacement tomorrow so we are not starting full anticoagulation at this time but it is Is something that should be considered before his discharge. I will talk to the electrophysiology service about this. He and I had a 0.5 hr talk with his about disability He works very hard at his job and would like to retire soon. He does have this 6 days head would like to see how he tolerates is return to physical activity before he decides about future plans. I would not let him work at this point time for the next month. He and I will talk this over has things go along. His would like him to retire as well She is very worried and we have talked about her concerns. His intra-aortic balloon pump is out he is walking around independently He has a excellent distal pulse and they are symmetric. We will start him in cardiac rehab etc once he is stable and being discharged. Subjective: He is feeling better today. He is sitting up in the chair His is with him He has no chest pain jaw pain He has no tightness in his chest. He is not short of breath He is markedly weak He is very discouraged He is very scared about his ICD discharging again. He has no nausea vomiting He has no fever chills He has no orthopnea or PND Objective: Vital Signs Temp Pulse Resp BP Pulse Ox 36.8 C 66 16 104/47 L 93 08/12/17 12:00 08/12/17 12:00 08/12/17 12:00 08/12/17 12:00 08/12/17 12:00 Microbiology 08/06/17 20:00 Blood Culture - Final Blood 08/06/17 20:00 Blood Culture - Final Blood Laboratory Results 08/12/17 05:35 08/12/17 05:35 08/11/17 08/12/17 08/13/17 05:59 05:59 05:59 Intake Total 1914 1030 600 Output Total 3700 975 Balance -1786 55 600 PT 18.5 SEC (12.0-15.0) H 08/06/17 09:41 INR 1.53 (0.83-1.16) H 08/06/17 09:41 Selected Entries 08/11/17 08/12/17 08/12/17 20:00 04:00 07:35 Heart Rate 68 Temperature (C) Blood Pressure 111/57 L 113/49 L Blood Pressure Right Source Upper Arm Automatic Heart Rate/ Monitor Cardiac Rhythm Normal Sinus Normal Sinus Rhythm Rhythm 08/12/17 12:00 Heart Rate 66 Temperature (C) 36.8 C Blood Pressure 104/47 L Blood Pressure Source Cardiac Rhythm Laboratory Tests 08/08/17 08/09/17 08/12/17 14:50 04:30 05:35 WBC 6.61 6.91 Hgb 9.8 L 9.2 L Hct 28.7 L 27.6 L Plt Count 28 L* 31 L 111 L Physical Exam - Physical Exam General Appearance: alert, mild distress Respiratory: rhonchi, prolonged expiration Cardiac/Chest: regular rate, rhythm, systolic murmur, No JVD Abdomen: non-tender, soft, No organomegaly Skin: warm/dry, pallor Extremities: non-tender, No pedal edema, No calf tenderness Neuro/Psych: alert, normal mood/affect ICD10 Worksheet Patient Problems: Problems Problem Status Onset Atrial fibrillation Acute Cardiac arrest Acute Cardiac arrhythmia Acute Cardiac defibrillator in place Acute Seizure Acute Cardiomyopathy Acute Ventricular tachycardia Acute
[2017-08-12] MEDS ORDERED: NS 1,000 ML IV ONE ×2 (12:49→12:58)
[2017-08-12] MEDS ORDERED: ceFAZolin 2 GM/SWFI 2 GM/20 ML SYR IVP ONE ×2 (12:49→13:00)
[2017-08-12] MEDS ORDERED: BACITRACIN IRRIGATION/NS 50,000 UNITS/1,000 ML BTL IRR ONE ×3 (12:49→13:00)
--- NOTE | 2017-08-12 16:30 | ASMTCMCOM ---
CM Note CM Note Notes: OT/PT recommending patient return home with outpatient follow up. Patient will most likely d/c independent. CM available if d/c needs arise. Date Signed: 08/12/2017 04:29 PM Electronically Signed By:Jenelle Brian LCSW
[2017-08-13] MEDS: ACETAMINOPHEN 325 MG TAB PO PRN ×2 (06:15→19:01)
[2017-08-13] MEDS ORDERED: ceFAZolin 2 GM/SWFI 2 GM/20 ML SYR IVP ONE (07:00)
[2017-08-13] MEDS ORDERED: BACITRACIN IRRIGATION/NS 50,000 UNITS/1,000 ML BTL IRR ONE (07:00)
[2017-08-13] MEDS ORDERED: NS 1,000 ML IV ONE (07:00)
[2017-08-13] MEDS: CLOPIDOGREL BISULFATE 75 MG TAB PO SCH (09:17)
[2017-08-13] MEDS: INSULIN LISPRO 100 UNIT/ML SC SCH ×3 (09:17→19:00)
[2017-08-13] MEDS: ASPIRIN 325 MG TAB PO SCH (09:17)
[2017-08-13] MEDS: PANTOPRAZOLE SODIUM 40 MG TAB PO SCH (09:17)
[2017-08-13] MEDS: FUROSEMIDE 20 MG/2 ML VIAL IVP SCH (09:17)
[2017-08-13] MEDS: AMIODARONE HCL 200 MG TAB PO SCH ×2 (09:17→20:19)
[2017-08-13] MEDS: ATORVASTATIN CALCIUM 40 MG TAB PO SCH (09:17)
[2017-08-13] MEDS ORDERED: POTASSIUM CL 10 MEQ TAB PO ONE (09:37)
--- NOTE | 2017-08-13 13:24 | PDPROPOC ---
Sedation Plan of Care Sedation Plan of Care: vital signs stable, mental status noted, patient can tolerate sedation ASA Classification: ASA 3 Planned drugs: fentanyl, midazolam Mallampati Score: Class 3 Mallampati Reference Image: Patient passed 3-3-2 rule?: Yes
--- NOTE | 2017-08-13 13:24 | PDHPUP ---
History & Physical Update H&P update statement: This history and physical update is based on an assessment of the patient which was completed after admission or registration (within 24 hours), but prior to the surgery/procedure. H&P update: H&P reviewed & patient examined, no change in patient's condition since H&P completed
[2017-08-13] MEDS ORDERED: LIDOCAINE 1% 300 MG/30 ML SDV ONE (13:41)
[2017-08-13] MEDS ORDERED: BUPIVACAINE 0.5% 30 ML SDV ONE (13:42)
[2017-08-13] MEDS ORDERED: fentaNYL 100 MCG/2 ML INJ ONE ×2 (13:42→14:35)
[2017-08-13] MEDS ORDERED: MIDAZOLAM 2 MG/2 ML VIAL ONE ×2 (13:42→14:16)
--- NOTE | 2017-08-13 14:50 | EPPROC ---
Electrophysiology Procedure Note: PROCEDURE PERFORMED: 1. Explantation of an A-V Implantable Cardioverter Defibrillator 2. Implantation of an A-V Implantable Cardioverted Defibrillator INDICATION: ICD Generator at [facility] Cardiomyopathy PROCEDURE NOTE: Patient presented to the cardiac catheterization laboratory in a fasting, postabsorptive state. Moderate sedation administered. The right infraclavicular area was prepped and draped in the usual sterile fashion. Lidocaine plus bupivacaine was used for local anesthesia. Using a combination of blunt and sharp dissection and electrocautery, the dissection was carried down to the prepectoral fascia and the existing ICD pocket was opened. The ICD generator was disconnected from the leads and the lead thresholds and impedance were checked. The ICD pocket was copiously irrigated with antibiotic solution. The pocket was again inspected for any bleeding. The leads were attached to the ICD securely. The ICD was inserted into the pocket and secured in place with a nonabsorbable suture. The ICD pocket was closed in 3 layers with absorbable monocryl sutures. Appropriate dressing was applied. The patient left the cardiac catheterization laboratory in stable condition. Serial Numbers: 1. Implanted Device: Biotronik Itrevia SN [id number] 2. Atrial Lead: n/a 3. Ventricular Lead: Biotronik Setrox SN [id number] Biotronik Linox S65 SN [id number] 5. Removed Device: Biotronik Lumax 540 VR SN [id number] Stimulation Thresholds & Impedance Measurements: 1. Atrial Lead n/a 2. Ventricular Lead 15mV, 1.1@0.4ms, 498Ohms Pacing Parameters: 1. Pacing mode: VVI 2. Lower rate: 50 3. Upper tracking rate: 130 4. Upper sensor rate: 130 Tachycardia therapy parameters: VF zone : Detection 181 bpm First therapy 41 Joule Subsequent therapies 41 Joule VT zone : Detection 150 bpm monitor only Patient Problems: Problems Problem Status Onset Atrial fibrillation Acute Cardiac arrest Acute Cardiac arrhythmia Acute Cardiac defibrillator in place Acute Seizure Acute Cardiomyopathy Acute Ventricular tachycardia Acute
--- NOTE | 2017-08-13 15:06 | HOSPPROG ---
Hospitalist Progress Note Assessment/Plan: #Cardiac arrest 2/ VT storm #Cardiogenic shock: weaned off pressors and IABP removed 08/10 #Acute hypoxic resp failure: due to volume overload. Resolved #Acutely decompensated systolic HF/ischemic cardiomyopathy: EF 19%. -ICD battery change today. -edema improved with Lasix; change to PO -per card recs: Losartan 50mg, Toprol 50mg #CAD: occluded LAD, PCI to LCX. ASA, Plavix, statin #Atrial fibrillation: change to oral amiodarone. Will need AC after procedure #Thrombocytopenia: platelets normalized #Type 2 DM: resume metformin. Cont SSI. #Deconditioning: PT/OT recs outpatient therapy #Diet: cardiac. NPO after MN #Disp: stable for transfer to PCU Subjective: walking around unit. Strength improving Objective: Vital Signs Temp Pulse Resp BP Pulse Ox 37.1 C 69 17 128/57 H 96 08/13/17 07:23 08/13/17 07:23 08/13/17 07:23 08/13/17 09:32 08/13/17 07:23 Laboratory Results 08/13/17 04:35 08/13/17 04:35 08/12/17 08/13/17 08/14/17 05:59 05:59 05:59 Intake Total 1030 1380 Output Total 975 350 Balance 55 1030 PT 18.5 SEC (12.0-15.0) H 08/06/17 09:41 INR 1.53 (0.83-1.16) H 08/06/17 09:41 - Time Spent With Patient Time Spent with Patient: greater than 35 minutes Time Spent with Patient: Greater than 35 minutes spent on this patients care, greater than 50% of time spent counseling, educating, and coordinating care regarding the above mentioned plan. - Physical Exam Constitutional: no apparent distress Eyes: PERRL Ears, Nose, Mouth, Throat: moist mucous membranes Cardiovascular: regular rate and rhythym, edema (improved lowe extremity edema) Gastrointestinal: normoactive bowel sounds Genitourinary: no bladder fullness Skin: warm Musculoskeletal: full muscle strength Neurologic: AAOx3, CN II-XII Intact Psychiatric: interacting appropriately, flat affect ICD10 Worksheet Patient Problems: Problems Problem Status Onset Atrial fibrillation Acute Cardiac arrest Acute Cardiac arrhythmia Acute Cardiac defibrillator in place Acute Seizure Acute Cardiomyopathy Acute Ventricular tachycardia Acute
--- NOTE | 2017-08-13 15:27 | SOAPPROG ---
SOAP Progress Note Assessment/Plan: Assessment: 1. non STEMI 2. chronic coronary artery disease 3. severe ischemic cardiomyopathy 4. acute on chronic systolic heart failure 5. Cardiogenic shock Right now is mean arterial pressures acceptable and his balloon pump has been weaned from 1-1 to 1-2 tolerated that well and after 40 minutes w put on one-to - 4. he is tolerating that at this point time is heparin is being held and we are going to discontinue the balloon pump. This believe that it will be tolerated without it he is very sick about his leg been down would like us to move on this. I have reviewed the records from the Heart failure service suit been taking care of him up until today. He is currently off his vaso present. He is off his dopamine He is upset never he is stable He has had a recent non-Q-wave myocardial infarction he had ventricular tachycardia storm with over 20 shocks. He received a drug-eluting stent to the left circumflex. I have known him for 15 years and have answered all he and his 's questions. Think he will do quite well. His ICD battery has and that will be replaced during this hospitalization. Plan: 08/10/17 14:30 08/12/17 12:42 1. Non STEMI 2. Chronic coronary artery disease 3. Severe ischemic cardiomyopathy 4. Acute on chronic systolic heart failure 5. Cardiogenic shock 6. Dyslipidemia 7. Disability 8.Atrial fibrillation 9. ICD 10.Ventricular tachycardia 08/13/17 15:23 1. Non STEMI 2. Chronic coronary artery disease 3. Severe ischemic cardiomyopathy 4. Acute on chronic systolic heart failure 5. Cardiogenic shock 6. Dyslipidemia 7. Disability 8. Atrial fibrillation 9. ICD 10. Ventricular tachycardia 11. Anemia He has tolerated his non-STEMI very well. Originally coming into cardiogenic shock and ventricular tachycardia storm With the stent in place and review preserved blood flow he is doing much better. He is still weak He is still tired He is still worried He is very worried about his ICD going off He has had the better ear place today and is stable. We will maximize his medical therapy. I would send him home on metoprolol succinate 50 mg daily Note also put him on losartan 50 daily I have talked to the heart failure service and they will switch him to Entresto After he improves from his current condition We would like to be very careful with his bleeding he should be on full anticoagulation as well as dual antiplatelet therapy. He is starting out with a very significant anemia and if he bled He would not allow have a lot of reserve. At this point time I would hold full anticoagulation and just send him home on dual antiplatelet therapy. A Subjective: He is not having any chest pain. He feels tired He has no nausea vomiting He has no fevers chills He has no cough He has no headaches. He has peripheral edema which is getting smaller. Objective: Vital Signs Temp Pulse Resp BP Pulse Ox 37.1 C 69 17 128/57 H 96 08/13/17 07:23 08/13/17 07:23 08/13/17 07:23 08/13/17 09:32 08/13/17 07:23 Laboratory Results 08/13/17 04:35 08/13/17 04:35 08/12/17 08/13/17 08/14/17 05:59 05:59 05:59 Intake Total 1030 1380 Output Total 975 350 Balance 55 1030 PT 18.5 SEC (12.0-15.0) H 08/06/17 09:41 INR 1.53 (0.83-1.16) H 08/06/17 09:41 Selected Entries 08/13/17 08/13/17 08/13/17 04:00 07:23 09:32 Temperature (C) 37.1 C Blood Pressure 121/51 H 128/57 H Mean Arterial 74 80 Pressure (MAP) O2 Delivery Mode 08/13/17 10:36 Temperature (C) Blood Pressure Mean Arterial Pressure (MAP) O2 Delivery Room Air Mode Laboratory Tests 08/12/17 08/13/17 08/13/17 17:28 04:35 04:35 WBC 5.93 RBC 2.95 L Hgb 9.2 L Hct 27.8 L POC Glucose 112 H Ionized Calcium 1.15 08/13/17 08:57 WBC RBC Hgb Hct POC Glucose 112 H Ionized Calcium Physical Exam - Physical Exam General Appearance: alert, mild distress Respiratory: rhonchi, prolonged expiration Cardiac/Chest: regular rate, rhythm, systolic murmur Abdomen: non-tender, soft, No organomegaly Skin: pallor Extremities: pedal edema, No calf tenderness Neuro/Psych: normal mood/affect ICD10 Worksheet Patient Problems: Problems Problem Status Onset Atrial fibrillation Acute Cardiac arrest Acute Cardiac arrhythmia Acute Cardiac defibrillator in place Acute Seizure Acute Cardiomyopathy Acute Ventricular tachycardia Acute
[2017-08-13] MEDS ORDERED: METOPROLOL SUCCINATE XR 50 MG TAB PO SCH (15:30)
[2017-08-13] MEDS ORDERED: LOSARTAN POTASSIUM 50 MG TAB PO SCH (15:30)
[2017-08-13] MEDS: metFORMIN SR 500 MG TAB PO SCH (20:19)
[2017-08-14] MEDS: ACETAMINOPHEN 325 MG TAB PO PRN ×2 (01:52→09:33)
[2017-08-14] MEDS: INSULIN LISPRO 100 UNIT/ML SC SCH ×2 (07:47→12:35)
--- NOTE | 2017-08-14 09:14 | HOSPPROG ---
Hospitalist Progress Note Assessment/Plan: DIAGNOSES: #Cardiac arrest 2/2 VT storm * successful resuscitation with normal neurologic function * Amiodarone #Cardiogenic shock: weaned off pressors and IABP removed 08/10 #Acute hypoxic resp failure due to volume overload. Resolved with diuresis #Acutely decompensated systolic HF/ischemic cardiomyopathy: EF 19%. -ICD device changed 08/13 -edema improved with Lasix ongoing -per card recs: Losartan 50mg, Toprol 50mg #CAD: occluded LAD, PCI to LCX. * ASA, Plavix, statin, metoprolol #Atrial fibrillation: * changed to oral amiodarone and will continue that * Currently on ASA and plavix * I reviewed with Dr. 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 #Thrombocytopenia: platelets normalized #Deconditioning: PT/OT recs outpatient therapy PLANS: -continue current cardiac medicines -continue increase activities as able -follow sugars closely, stop insulin sliding scale at this time continue oral medicines -continue off of anticoagulant for the time being with plans to resume that in the future a Cardiology Clinic -due to instability of blood pressure over the last 48 hr will watch as inpatient to monitor that, potentially discharging in 1-2 days if doing well overall I reviewed the patient's status and care in detail today with Dr. Jimmy Alfaro SUBJECTIVE: Overall feeling reasonably well, still has pain at his ribcage from chest compressions, and still has pain from yesterday where his AICD device was changed No shortness of breath or fever symptoms Eating, beginning to walk a little better OBJECTIVE Vitals reviewed: Had some lower blood pressures yesterday some more stable overnight, pulse has been in good range respirations good no fever [employer], my review: Sinus Exam: alert oriented skin warm dry color ok resps not labored lungs clear BSs heart regular abd soft nondistended nontender, bowel sounds present limbs warm, still with some edema iv site ok Laboratory data: Hemoglobin stable at 9 rest of CBC unremarkable Chemistries with stable renal function, sugars remain in acceptable range today for inpatient setting Objective: Vital Signs Temp Pulse Resp BP Pulse Ox 36.9 C 72 20 114/56 L 96 08/14/17 08:48 08/14/17 08:48 08/14/17 08:48 08/14/17 08:48 08/14/17 08:48 Laboratory Results 08/13/17 04:35 08/14/17 03:10 08/13/17 08/14/17 08/15/17 06:59 06:59 06:59 Intake Total 1380 250 Output Total 350 2150 Balance 1030 -1900 PT 18.5 SEC (12.0-15.0) H 08/06/17 09:41 INR 1.53 (0.83-1.16) H 08/06/17 09:41 - Time Spent With Patient Time Spent with Patient: greater than 35 minutes Time Spent with Patient: Greater than 35 minutes spent on this patients care, greater than 50% of time spent counseling, educating, and coordinating care regarding the above mentioned plan. ICD10 Worksheet Patient Problems: Problems Problem Status Onset Atrial fibrillation Acute Cardiac arrest Acute Cardiac arrhythmia Acute Cardiac defibrillator in place Acute Seizure Acute Cardiomyopathy Acute Ventricular tachycardia Acute
[2017-08-14] MEDS: ASPIRIN 325 MG TAB PO SCH (09:25)
[2017-08-14] MEDS: METOPROLOL SUCCINATE XR 50 MG TAB PO SCH (09:25)
[2017-08-14] MEDS: ATORVASTATIN CALCIUM 40 MG TAB PO SCH (09:25)
[2017-08-14] MEDS: FUROSEMIDE 20 MG TAB PO SCH (09:26)
[2017-08-14] MEDS: CLOPIDOGREL BISULFATE 75 MG TAB PO SCH (09:26)
[2017-08-14] MEDS: AMIODARONE HCL 200 MG TAB PO SCH ×2 (09:26→19:39)
[2017-08-14] MEDS: PANTOPRAZOLE SODIUM 40 MG TAB PO SCH (09:26)
[2017-08-14] MEDS: CEPACOL LOZENGE PO PRN (09:33)
[2017-08-14] MEDS ORDERED: CALCIUM GLUCONATE 50 ML IV ONE (10:12)
--- NOTE | 2017-08-14 10:58 | ASMTCMCOM ---
CM Note CM Note Notes: FOX spoke w/ Kaitlynn RN regarding d/c POC. Therapies are recommending home independent with outpatient cardiac rehab. CM available for changes. Plan: Independent Date Signed: 08/14/2017 10:57 AM Electronically Signed By:[employer]
--- NOTE | 2017-08-14 12:40 | SOAPPROG ---
SOAP Progress Note Assessment/Plan: Assessment: 1. non STEMI 2. chronic coronary artery disease 3. severe ischemic cardiomyopathy 4. acute on chronic systolic heart failure 5. Cardiogenic shock Right now is mean arterial pressures acceptable and his balloon pump has been weaned from 1-1 to 1-2 tolerated that well and after 40 minutes w put on one-to - 4. he is tolerating that at this point time is heparin is being held and we are going to discontinue the balloon pump. This believe that it will be tolerated without it he is very sick about his leg been down would like us to move on this. I have reviewed the records from the Heart failure service suit been taking care of him up until today. He is currently off his vaso present. He is off his dopamine He is upset never he is stable He has had a recent non-Q-wave myocardial infarction he had ventricular tachycardia storm with over 20 shocks. He received a drug-eluting stent to the left circumflex. I have known him for 15 years and have answered all he and his 's questions. Think he will do quite well. His ICD battery has and that will be replaced during this hospitalization. Plan: 08/10/17 14:30 08/12/17 12:42 1. Non STEMI 2. Chronic coronary artery disease 3. Severe ischemic cardiomyopathy 4. Acute on chronic systolic heart failure 5. Cardiogenic shock 6. Dyslipidemia 7. Disability 8.Atrial fibrillation 9. ICD 10.Ventricular tachycardia 08/13/17 15:23 08/14/17 12:41 1. Non STEMI 2. Chronic coronary artery disease 3. Ischemic cardiomyopathy 4. Acute on chronic systolic heart failure 5. Cardiogenic shock. 6. 6 ICD He has had his battery placed in the IC D. He is having no problems with that right now. He has heart failure but is stable at this point time. He did not tolerate his beta-matthias yesterday so we are not going to up titrate his medications. We will see him in clinic and we can change to medications. We will be starting his ARB and then adding other medications from there. He seems like he is much more stable today. Long-term he wants to stop working and I will help him with that. I have talked to his and his daughter and all her questions have been answered. I believe he should be stable to go home tomorrow morning. We will see him in the office next week 7. Atrial fibrillation It makes the most sense to send him home on dual antiplatelet therapy only. We can add in his full anticoagulation for atrial fibrillation when he is stable. Subjective: He is feeling better today he has no nausea vomiting He has no chest pain He is not short of breath He is lightheaded yesterday. He is not having any joint pains. He does not have headaches he is not having fevers or chills. Objective: Vital Signs Temp Pulse Resp BP Pulse Ox 36.9 C 72 20 114/56 L 96 08/14/17 08:48 08/14/17 08:48 08/14/17 08:48 08/14/17 08:48 08/14/17 08:48 Laboratory Results 08/13/17 04:35 08/14/17 03:10 08/13/17 08/14/17 08/15/17 05:59 05:59 05:59 Intake Total 1380 250 Output Total 350 2150 300 Balance 1030 -1900 -300 PT 18.5 SEC (12.0-15.0) H 08/06/17 09:41 INR 1.53 (0.83-1.16) H 08/06/17 09:41 Selected Entries 08/14/17 08/14/17 08/14/17 07:25 07:48 08:48 Respiratory 12 Rate O2 Sat (%) 97 Blood Pressure 119/62 114/56 L Cardiac Rhythm Normal Sinus Rhythm 08/14/17 11:48 Respiratory Rate O2 Sat (%) Blood Pressure Cardiac Rhythm Normal Sinus Rhythm Paced Laboratory Tests 08/13/17 08/14/17 04:35 07:40 WBC 5.93 Hct 27.8 L POC Glucose 111 H Physical Exam - Physical Exam General Appearance: alert Neck: supple Respiratory: rhonchi Cardiac/Chest: systolic murmur, No gallop Abdomen: non-tender, soft, No organomegaly Extremities: non-tender, pedal edema, No calf tenderness Neuro/Psych: alert, normal mood/affect ICD10 Worksheet Patient Problems: Problems Problem Status Onset Atrial fibrillation Acute Cardiac arrest Acute Cardiac arrhythmia Acute Cardiac defibrillator in place Acute Seizure Acute Cardiomyopathy Acute Ventricular tachycardia Acute
[2017-08-14] MEDS: metFORMIN SR 500 MG TAB PO SCH (17:33)
[2017-08-14] MEDS ORDERED: CEPACOL LOZENGE PO PRN (19:18)
[2017-08-15] MEDS: HYDROCODONE/APAP 5/325 TAB PO PRN (08:20)
[2017-08-15] MEDS: METOPROLOL SUCCINATE XR 50 MG TAB PO SCH (09:24)
[2017-08-15] MEDS: ATORVASTATIN CALCIUM 40 MG TAB PO SCH (09:24)
[2017-08-15] MEDS: AMIODARONE HCL 200 MG TAB PO SCH (09:25)
[2017-08-15] MEDS: PANTOPRAZOLE SODIUM 40 MG TAB PO SCH (09:25)
[2017-08-15] MEDS: ASPIRIN 325 MG TAB PO SCH (09:25)
[2017-08-15] MEDS: FUROSEMIDE 20 MG TAB PO SCH (09:25)
[2017-08-15] MEDS: CLOPIDOGREL BISULFATE 75 MG TAB PO SCH (09:25)
[2017-08-15 11:54] VITALS: BP 93/46
--- NOTE | 2017-08-15 15:17 | PDIAF ---
- Diagnosis Diagnosis: Cardiac arrest, VFib, myocardial infarction, new stent, new AICD Code Status: Full Code - Medication Management Discharge Medications: Medications to Continue on Transfer Atorvastatin Calcium [Lipitor 40 mg (*)] 40 mg PO HS 08/06/17 [Last Taken Unknown] Cholecalciferol Vit D3 [Vitamin D3 (*)] 2,000 units PO DAILY 08/06/17 [Last Taken Unknown] [place]-3 Fatty Acids [Fish Oil 1000 mg (*)] 1,000 mg PO DAILY 08/06/17 [Last Taken Unknown] Omeprazole 20 mg PO DAILY 08/06/17 [Last Taken Unknown] metFORMIN SR [Glucophage XR 500 mg (*)] 1,500 mg PO DAILY@1800 08/06/17 [Last Taken Unknown] Amiodarone HCl [Pacerone (*)] 200 mg PO BID #60 tab 08/15/17 [Last Taken Unknown ] Aspirin [Aspirin 325 mg (*)] 325 mg PO DAILY tab 08/15/17 [Last Taken Unknown] Benzocaine/Menthol / [Cepacol Lozenge] 1 ea PO Q1H PRN lozenge 08/15/17 [ Last Taken Unknown] Clopidogrel Bisulfate [Plavix (*)] 75 mg PO DAILY #30 tab 08/15/17 [Last Taken Unknown] Furosemide [Lasix 20 MG (*)] 20 mg PO DAILY #30 tab 08/15/17 [Last Taken Unknown ] Metoprolol Succinate Xr [Toprol Xl 25 mg (*)] 25 mg PO DAILY #30 tab.sr [Last Taken Unknown] Discharge Medications: Refer to the Discharge Home Medication list for PRN reason. - Orders Services needed: Home Care, Registered Nurse Home Care Face to Face: I certify that this patient was under my care and that I had the required [id number] encounter meeting the encounter requirements on the discharge day. My findings support the fact that the patient is homebound as defined in Home Care Face to Face Continued: CMS Chapter 7 Medicare Benefits Manual 30.1.1 , The condition of the patient is such that there exists a normal inability to leave home and consequently, leaving home would require a considerable and taxing effort. Diet Recommendation: cardiac -low fat low salt Diet Texture: Regular Texture Diet Wound Care Instructions: Keep AICD placement wound dry for 5 more days Activity/Weight Bearing Restrictions: No lifting more than 5 lb right arm until released to do so by Cardiology Additional Instructions: Restrictions for lifting and right shoulder activities as well as keeping AICD wound dry per Dr. George/Pavithra's recommendation Make an appointment in the Cardiology Electrophysiology Clinic this coming week and an appointment at Dr. Alfaro [facility] the following week - Follow Up Care Current Providers and Referrals: Patient,NotPresent [Unknown] - As per Instructions
--- NOTE | 2017-08-15 15:25 | PDDCSUM ---
Discharge Summary Discharge Summary: DISCHARGE DIAGNOSES: -acute cardiac arrest due to recurrent ventricular tachycardia, ventricular fibrillation -acute myocardial infarction -acute systolic congestive heart failure, cardiogenic shock -multiple episodes of ventricular arrhythmia with more than 20 episodes of shock from his implanted AICD device on the day of admission -recurrent atrial fibrillation -weakness and deconditioning -acute respiratory failure due to above requiring mechanical ventilation CONSULTANTS: Multiple job analyst Dr. Soni of pulmonology PROCEDURES: ACLS protocols with CPR, electrical defibrillation Endotracheal intubation mechanical ventilation Placement of intra-aortic balloon pump Coronary angiography showing coronary artery disease, drug-eluting stent placed in proximal circumflex artery Central IV line placement Placement of new AICD generator HOSPITAL COURSE SUMMARY: This patient with known coronary disease, previous stents, recurrent ventricular tachycardia episodes with previously placed AICD, had onset of chest discomfort followed by repeated shocks from his AICD. In total he had approximately 23 shocks on the day of admission. This led to him coming emergently to the ER by ambulance. As he arrived here he was awake but hypotensive but shortly thereafter became unresponsive and pulseless with ventricular arrhythmia and was treated with ACLS protocols including CPR, respirations by mask bag, medications, and electrical defibrillation. He did come back to return of normal sinus rhythm with measurable blood pressure. He was placed on mechanical ventilator with endotracheal tube. He was moved to ICU. He went probably to the angiography laboratory where he had angiogram showing recurrent coronary disease and had placement of a single drug-eluting stent in the proximal circumflex. He was in cardiogenic shock and so had balloon pump placed and required extensive support with pressors as well as diuretic. Thereafter he was able to be slowly wean from all of the supportive care and has now recovered nicely with normal neurologic functional around, and is up walking in the hallways, eating well, breathing room air. He basically were out the last of his AICD battery so his AICD generator was replaced and this went without complications. He still has severe systolic dysfunction but is now with nicely compensated heart failure with minimal edema of the ankles and no pulmonary edema. He is felt stable for discharge to home which he will do today. He will follow up in the next few days this coming week at clinic PENDING TEST RESULTS: None MEDICATION CHANGES: Addition of Lasix, amiodarone, Plavix, and increase in aspirin from 81 to 325 mg daily Decrease in Toprol XL from 100 to25 mg daily Discontinuation of digoxin, Eliquis, Entresto (it is anticipated that in the near future the patient will need to resume Eliquis to prevent stroke from AFib , at which time would most likely stop aspirin to avoid bleeding risk, but this will be determined in Cardiology Clinic, this is reviewed in detail with the patient Continuation of Lipitor FOLLOW-UP PLAN: In 6 days at Cardiology Clinic Also will be seen with home care nursing in the next 1-2 days Also will be referred to the transitional care team Consideration for referral to cardiac rehabilitation clinics Greater than 35 minutes bedside and care coordination time today
--- NOTE | 2017-08-16 15:38 | ASDISCHSUM ---
Discharge Information Plan Status:Home with Home Health Medically Cleared to Leave:08/15/2017 Discharge Date:08/15/2017 05:58 PM CM D/C Disposition:Home Health Service ADT D/C Disposition:Home Health Service Projected Discharge Date:08/15/2017 11:00 AM Transportation at D/C:Family Discharge Delay Reason: Follow-Up Date:08/15/2017 11:00 AM Discharge Slot:2 - 12:01 pm - 18:00 pm Final Diagnosis:Defibrilator malfunction, acute cardiac arrest, recurrent vtach, vfib, acute FL, CHF , recurrent afib, acute resp failure Placement Information Referral Type:*Home Health Care Services Referral ID:[id number] Provider Name:[facility] Address 1:[address] [facility] [address] Address 2: City:[place] Selection Factors:Patient/Family Choice State:[place] Patient Contact Information Contact Name:PARAMJITLACI Relationship: Address:[address] [facility] Work Phone: City:[place] Alternate Phone: State/Zip Code:[place] [address] Email: Financial Information Financial Class:[employer] Primary Plan Desc:[employer] [facility] Primary Plan Number:[id number] Secondary Plan Desc: Secondary Plan Number: Assessment Information LACE LACE Length of stay for Answers: 7-13 days current admission Acuity / Level of Answers: Yes Care: Did the patient have an inpatient admission? Comorbidities - select Answers: Congestive heart failure all that apply Coronary Artery Disease Other Notes: Cardiomyopathy, acute cardiac arrest, recurre nt vtach, vfib, acute FL # of Emergency department Answers: 1-2 visits in the last 6 months Score: 14 Date Signed: 08/16/2017 03:37 PM Electronically Signed By:Denia Buitrago RN [facility] Initial CM Assessment Living Arrangements What is your living Answers: With Spouse arrangement? Who do you live with? Type Of Residence What kind of residence do Answers: House you live in? Discharge Plan Comments Coordination Status Comments Notes: Patient is a 66yo male who was brought to [facility] emergently after he suffered a shock from his defibrillator device. CPR was started in the ER. Patient was transferred to the cytology laboratory manager. Cardiac rehab eval ordered. D/C needs TBD. CM will follow. Date Signed: 08/06/2017 12:31 PM Electronically Signed By:Jenelle Brian LCSW [facility] CM Progress Note CM Note CM Note Notes: Will need order for evals by therapies for discharge needs. CM to follow. Date Signed: 08/09/2017 12:07 PM Electronically Signed By:Celine Mata LCSW [facility] CM Progress Note CM Note CM Note Notes: Met with , Paramjit and dtrDerrick in a "Family Mtg" See Family Meeting Notes. Pt turns 67 in August and would like to retire. 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 Therapies will need to eval for discharge needs. CM to follow. Date Signed: 08/10/2017 04:29 PM Electronically Signed By:Celine Mata LCSW [facility] CM Progress Note CM Note CM Note Notes: OT/PT recommending patient return home with outpatient follow up. Patient will most likely d/c independent. CM available if d/c needs arise. Date Signed: 08/12/2017 04:29 PM Electronically Signed By:Jenelle Brian LCSW [facility] CM Progress Note CM Note CM Note Notes: CM spoke w/ MICHELL Calderón regarding d/c POC. Therapies are recommending home independent with outpatient cardiac rehab. CM available for changes. Plan: Independent Date Signed: 08/14/2017 10:57 AM Electronically Signed By:[employer]OP[employer] Live Case Management Discharge Plan Note Case Management Discharge Discharge Order Complete? Answers: Yes Patient to Obtain Answers: Independently Medications Transportation Arranged Answers: Family/Friends Transport will Pick (Date 08/15/2017 04:00 PM & Time) [place] Complete Answers: No Notes: N/A Case Management Transport Answers: No Notes: N/A Form Complete Faxed Final Orders Answers: Yes Notes: Sent via [employer] Agency/Facility Transfer Answers: Yes Notes: Sent via [employer] Report Printed & Faxed to Receiving Agency Family Notified Answers: Yes Notes: At bedside Discharge Comments Notes: Late entry - Thursday08/15/17 ([employer] maintenance, unable to access system) Reviewed chart, spoke with Dr. Gonsales and Daphne RN regarding discharge plan of care, pt's progress. Per Dr. Gonsales, pt to discharge home with home health care today. Met with pt and pt's family; home care guidelines/restrictions discussed. Pt agreeable to being homebound, pt address and phone number verified (pt's cell phone noted [phone]). Pt requesting [facility]. Call placed to MICHELL Parisi on-call for [facility]; per Ailin able to accept pt with a start of care for Thursday08/16/17 (RN services). Update provided to jaswant Serna and family. Discharge orders and paperwork sent via [employer]. Confirmed receipt with [facility]. CM business card provided to pt with [facility] contact information. Pt to follow up as directed. No IM signed, not applicable. CM available for any further issues or concerns. Discharge Plan: Home with [facility] Date Signed: 08/16/2017 03:34 PM Electronically Signed By:Denia Buitrago RN Intervention Information
== END 2017-08-15 17:58 | disposition home health service (06) | DRG 245 ==
LOC: EDUNIT# → F2N 10:10 → F2W 08-13 14:05
PROVIDERS: ADMIT Hospitalist; ATTEND Internal Medicine
PROC: 5A1223Z Performance of Cardiac Pacing, Continuous (ICD-10-PCS; principal; 2017-08-06)
PROC: 4A023N8 Measurement of Cardiac Sampling and Pressure, Bilateral, Percutaneous Approach (ICD-10-PCS; principal; 2017-08-06)
PROC: 027034Z Dilation of Coronary Artery, One Artery with Drug-eluting Intraluminal Device, Percutaneous Approach (ICD-10-PCS; principal; 2017-08-06)
PROC: 0BH18EZ Insertion of Endotracheal Airway into Trachea, Via Natural or Artificial Opening Endoscopic (ICD-10-PCS; 2017-08-06)
PROC: 5A2204Z Restoration of Cardiac Rhythm, Single (ICD-10-PCS; 2017-08-06)
PROC: 5A1945Z Respiratory Ventilation, 24-96 Consecutive Hours (ICD-10-PCS; 2017-08-06)
PROC: 0JH609Z Insertion of Cardiac Resynchronization Defibrillator Pulse Generator into Chest Subcutaneous Tissue and Fascia, Open Approach (ICD-10-PCS; 2017-08-13)
PROC: 0JPT0PZ Removal of Cardiac Rhythm Related Device from Trunk Subcutaneous Tissue and Fascia, Open Approach (ICD-10-PCS; 2017-08-13)
DX: I47.2 Ventricular tachycardia (principal); I46.2 Cardiac arrest due to underlying cardiac condition; I25.10 Atherosclerotic heart disease of native coronary artery without angina pectoris; I25.5 Ischemic cardiomyopathy; T82.857A Stenosis of other cardiac prosthetic devices, implants and grafts, initial encounter; I21.4 Non-ST elevation (NSTEMI) myocardial infarction; I50.23 Acute on chronic systolic (congestive) heart failure; I11.0 Hypertensive heart disease with heart failure; J96.01 Acute respiratory failure with hypoxia; G93.1 Anoxic brain damage, not elsewhere classified; E78.5 Hyperlipidemia, unspecified; I48.91 Unspecified atrial fibrillation; I95.81 Postprocedural hypotension; E11.9 Type 2 diabetes mellitus without complications; E87.6 Hypokalemia; D69.59 Other secondary thrombocytopenia; I25.2 Old myocardial infarction; Z95.810 Presence of automatic (implantable) cardiac defibrillator; Z45.02 Encounter for adjustment and management of automatic implantable cardiac defibrillator
CPT/HCPCS: 80305; 82947-QW; 85520-90; 92526-GN; 92610-GN; 96374; 97116-GP; 97161-GP; 97165-GO; 97530-GO; 97530-GP; 97535-GO; C1722; C1725; C1769; C1874; C1887; C9600; C9606; G0480; J0171; J0282; J0330; J0583; J0610; J0690; J1265; J1644; J1650; J1815; J1940; J2060; J2250; J2270; J2370; J2405; J2704; J3010; J3480; Q9967

== ENCOUNTER 2017-09-04 15:24 | Observation (INO) | payer OTHER ==
[2017-09-04] MEDS: LIDOCAINE/DEXTROSE 500 ML IV SCH (16:50)
[2017-09-04] MEDS ORDERED: clonazePAM 0.5 MG TAB PO PRN (16:53)
[2017-09-04] MEDS ORDERED: diphenhydrAMINE 25 MG CAP PO PRN (16:53)
--- NOTE | 2017-09-04 18:12 | PDCARPN ---
Cardiology Progress Note Chief Complaint: patient reports occasional episodes of palpitations. Assessment/Plan: Assessment: Please see Dr. Arshad's office note dated 09/04/2017, to be used as official history and physical. Copy has been placed in his physical chart. 66-year-old male with significant past history of CAD, previous anterior [place], ischemic cardiomyopathy (EF 31-35% Echo 08/31/2017 [facility]), recent PCI with JEREMY implantation circumflex, (3.0 x 16 synergy 08/06/2017), PAF, chronic systolic heart failure, history of VT storm, with remote AICD implantation, with recent AICD generator change (08/13/2017), type 2 diabetes, hypercholesteremia, hypertension, and hyperlipidemia. Admitted today for ongoing episodes of VT with noted episodes of ATP therapy. Currently denies of any chest pain, shortness of breath, or symptoms suggesting of ischemia. Reports no episodes of palpitations. Reports no recent therapeutic AICD shocks. Plan: 1. Ventricular tachycardia: Started on lidocaine drip. In 24 hours plan to switch to mexilitene. Resumed on home dose of amiodarone. and beta-matthias metoprolol succinate. 2. CAD: Recent PCI with JEREMY implantation of the circumflex. MPI study done at [facility] showed no changes, continue on home dose anti-platelet therapy of aspirin and clopidogrel. Beta-matthias of metoprolol. 3. Ischemic cardiomyopathy: EF 31-35% Echo 08/31/2017 from [facility]. Continue on metoprolol succinate and home dose diuretic Lasix. Patient had been on entresto, but was discontinued on his last hospitalization ( 08/06/2017) due to renal insufficiency and hypotension due to VT arrest. Has not been resumed as of this time. Re-evaluate either this hospitalization or follow-up office visit. 4. Paroxysmal atrial fibrillation: Patient maintaining sinus rhythm. Antiarrhythmic amiodarone and metoprolol. During recent hospitalization (2017) patient's Eliquis discontinued, due to being started on dual anti- platelet therapy in risk of bleeding. Consideration resuming either this hospitalization for as an outpatient. 5. Chronic systolic heart failure: Patient appears to be euvolemic. Resume diuretic therapy as mentioned above. 7. Diabetes type 2: Resume home dose metformin. 8. GERD: Started on Protonix as supplement to patient's home dose Prilosec. 9. Code status: Patient request to be full code 09/04/17 18:10 Subjective: He denies of any chest pressure or pain, reports fatigue symptoms, but denies of any significant shortness of breath, orthopnea, PND, edema, lightheadedness, near-syncope, or syncopal events. Reports occasional episodes of palpitations. Reviewed/Discussed With: other (Dr Arshad and Dr Osorio) Objective: Vital Signs (8 Hrs) Temp Pulse Resp BP Pulse Ox 09/04/17 15:58 36.4 C 52 L 16 115/62 97 Intake/Output (24 Hrs) 09/03/17 09/04/17 09/05/17 05:59 05:59 05:59 Intake Total 240 Balance 240 Intake: Oral (ml) 240 Other: Weight 67.5 kg Number of Voids Toilet 1 - Physical Exam Constitutional: WDWN, no apparent distress Ears, Nose, Mouth, Throat: moist mucous membranes Cardiovascular: regular rate and rhythm, no rubs, pulses symmetric bilat, No jugular vein distention, No carotid bruit Peripheral Pulses: 1+: dorsalis-pedis (R), dorsalis-pedis (L), 2+: carotid (R), carotid (L) Respiratory: clear to auscultate bilat, no crackles, no wheezes, No reduced air movement Gastrointestinal: normoactive bowel sounds, no masses Skin: no rashes, warm, no edema Neurologic: AAOx3 Psychiatric: cooperative, interactive, following commands ICD10 Worksheet Patient Problems: Problems Problem Status Onset Cardiomyopathy Acute Cardiac defibrillator in place Acute Ventricular tachycardia Acute Atrial fibrillation Acute Seizure Acute Cardiac arrest Acute Cardiac arrhythmia Acute
[2017-09-04] MEDS: metFORMIN SR 500 MG TAB PO SCH (21:33)
[2017-09-04] MEDS: AMIODARONE HCL 200 MG TAB PO SCH (21:33)
[2017-09-04] MEDS: ATORVASTATIN CALCIUM 40 MG TAB PO SCH (21:33)
[2017-09-05] MEDS: LIDOCAINE/DEXTROSE 500 ML IV SCH (07:21)
--- NOTE | 2017-09-05 09:26 | CPEKG ---
Heart Rate: 58 RR Interval: 1034 P-R Interval: 212 QRSD Interval: 136 QT Interval: 508 QTC Interval: 500 P [place]: 58 QRS [place]: -61 T Wave [place]: 72 EKG Severity - ABNORMAL ECG - EKG Impression: SINUS RHYTHM EKG Impression: NONSPECIFIC IVCD WITH LAD EKG Impression: LEFT VENTRICULAR HYPERTROPHY EKG Impression: LATERAL INFARCT, AGE INDETERMINATE EKG Impression: ANTERIOR Q WAVES, POSSIBLY DUE TO LVH EKG Impression: COMPARED WITH 09/05/2017 NO SIG CHANGE Electronically Signed By: Madhavi Alfaro 05-Sep-2017 10:27:42
[2017-09-05] MEDS: AMIODARONE HCL 200 MG TAB PO SCH ×2 (09:47→20:19)
[2017-09-05] MEDS: METOPROLOL SUCCINATE XR 25 MG TAB PO SCH (09:47)
[2017-09-05] MEDS: FUROSEMIDE 20 MG TAB PO SCH (09:47)
[2017-09-05] MEDS: PANTOPRAZOLE SODIUM 40 MG TAB PO SCH (09:47)
[2017-09-05] MEDS: CHOLECALCIFEROL VIT D3 1,000 UNITS TAB PO SCH (09:47)
[2017-09-05] MEDS: POTASSIUM CL 20 MEQ TAB PO SCH (09:47)
[2017-09-05] MEDS: buPROPion SR 150 MG TAB PO SCH (09:48)
[2017-09-05] MEDS: OMEGA-3 FATTY ACIDS 1,000 MG CAP PO SCH (09:48)
[2017-09-05] MEDS: CLOPIDOGREL BISULFATE 75 MG TAB PO SCH (09:48)
[2017-09-05] MEDS: ASPIRIN 325 MG TAB PO SCH (09:48)
[2017-09-05] MEDS: SPIRONOLACTONE 25 MG TAB PO SCH (09:48)
--- NOTE | 2017-09-05 10:02 | SOAPPROG ---
BRAEDEN Progress Note Assessment/Plan: Assessment: 1. CAD. Status post distant anterior infarct with recent PCI/stenting of the circumflex. He did have transient chest discomfort earlier today. His ECG looks normal. His symptoms have resolved now. Doubt this represents ischemia. 2. Ischemic cardiomyopathy. He appears to be well compensated today. 3. History of ventricular tachycardia with recent VT storm. He is hospitalized on a lidocaine drip with plans to transition to mexiletine tonight. He appears stable. He is not experiencing any neurologic symptoms that would suggest lidocaine toxicity. 4. History of PAF. I am not sure of the details. He is currently not on systemic anticoagulation. This will need to be addressed prior to discharge. 5. Hypertension. Pressures are well controlled. 6. Hyperlipidemia. Currently on atorvastatin. 7. Type 2 diabetes mellitus. Treated with metformin. Will plan fingerstick blood sugars while he is in the hospital. Overall he appears stable. He is tolerating the addition of lidocaine. There are plans to transition to mexiletine tonight. Plan: 1. Continued lidocaine infusion. Orders are written to transition over to p.o. Mexiletine after his 24 hr of IV lidocaine. 2. We will plan to correct electrolytes. I have started him on p.o. Potassium and a low-dose of Aldactone. We will plan for electrolytes in the morning. 3. I have ordered an ECG for the morning. 4. I will order fingerstick blood sugars. 09/05/17 10:02 Subjective: 66-year-old male with significant past history of CAD, previous anterior [place], ischemic cardiomyopathy (EF 31-35% Echo 08/31/2017 [facility] recent PCI with JEREMY implantation circumflex, (3.0 x 16 synergy 08/06/2017), PAF, chronic systolic heart failure, history of VT storm, with remote AICD implantation, with recent AICD generator change (08/13/2017), type 2 diabetes, hypercholesteremia and hypertension. Admitted the hospital yesterday after review of his ICD indicates ongoing episodes of ventricular tachycardia with ATP. He has been on lidocaine overnight. There have been no episodes of ventricular tachycardia in today he states he feels well. He did have transient very mild chest pressure earlier today that has now resolved. Objective: Vital Signs Temp Pulse Resp BP Pulse Ox 36.6 C 63 12 133/68 H 98 09/05/17 08:08 09/05/17 08:08 09/05/17 08:08 09/05/17 08:08 09/05/17 08:08 Laboratory Results 09/05/17 04:20 09/05/17 04:20 09/04/17 09/05/17 09/06/17 05:59 05:59 05:59 Intake Total 1000 Output Total 250 150 Balance 750 -150 Physical Exam - Physical Exam General Appearance: WD/WN, no apparent distress Neck: non-tender, supple Respiratory: lungs clear, No crackles, No rales, No rhonchi Cardiac/Chest: regular rate, rhythm, other (Steri-Strips in place over his ICD generator change site), No edema, No gallop, No JVD Peripheral Pulses: 2+: carotid (R), carotid (L) Abdomen: non-tender, soft Male Genitalia: deferred Rectal: deferred Neuro/Psych: alert, oriented x 3 ICD10 Worksheet Patient Problems: Problems Problem Status Onset Cardiomyopathy Acute Cardiac defibrillator in place Acute Ventricular tachycardia Acute Atrial fibrillation Acute Seizure Acute Cardiac arrest Acute Cardiac arrhythmia Acute
--- NOTE | 2017-09-05 10:43 | PDMN ---
Medical Necessity Medical necessity: C/M review: Patient meets INPT crtieria [place] [facility] Ventricular Arrhythmias: Acute and persistent ongoing episodes of ventricular tachycardia with ATP on review of ICD, transient mild chest pressure 09/05/2017 that has since resolved, requiring IV Lidocaine infusion x 24 hrs. planned 09/06 EKG, then ongoing transition to oral Mexiletine after 24 hrs. of Lidocaine 09/05/2017 PM, cardiac monitoring, electrolyte monitoring, oral Aldactone, oral potassium, comorbid history of ventricular tachycardia with recent ventricular tachycardia storm, CAD S/P distant anterior [place] with PCI / stenting of the circumflex, ischemic cardiomyopathy, paroxysdmal atrial fibrillation , hypertension, hyperlipidemia type 2 diabetes, chronic systolic heart failure,remote AICD implantation, recent AICD generator change 08/13/2017. anticipates > 2 [place] LOS for ongoing med nec for eval and [place] of above.
--- NOTE | 2017-09-05 13:58 | ASMTCMCOM ---
CM Note CM Note Notes: 09/05/2017 Case Management Note Reviewed chart, discussed with RN. Pt is and daughter has been visiting in hospital. Pt is employed. Pt was independent in ADL's prior to admission. Pt was admitted for VT, is being treated with IV medications with a plan to switch to PO medication prior to d/c. There is a Cardiac Rehab consult ordered. Case Management d/c poc: anticipating independent with follow up as directed. Case Management available if needs change. Date Signed: 09/05/2017 01:58 PM Electronically Signed By:Leena Vazquez RN
[2017-09-05] MEDS: MEXILETINE HCL 200 MG CAP PO SCH ×2 (16:30→21:48)
[2017-09-05] MEDS ORDERED: ONDANSETRON DISINTEGRATING 4 MG TAB PO PRN (17:56)
[2017-09-05] MEDS: metFORMIN SR 500 MG TAB PO SCH (20:18)
[2017-09-05] MEDS: ATORVASTATIN CALCIUM 40 MG TAB PO SCH (20:19)
--- NOTE | 2017-09-06 08:18 | SOAPPROG ---
[facility] Progress Note Assessment/Plan: Assessment: 1. CAD. Status post distant anterior infarct with recent PCI/stenting of the circumflex. He did have transient chest discomfort earlier today. His ECG looks normal. His symptoms have resolved now. Doubt this represents ischemia. 2. Ischemic cardiomyopathy. He appears to be well compensated today. 3. History of ventricular tachycardia with recent VT storm. He is hospitalized on a lidocaine drip with plans to transition to mexiletine tonight. He appears stable. He is not experiencing any neurologic symptoms that would suggest lidocaine toxicity. 4. History of PAF. I am not sure of the details. He is currently not on systemic anticoagulation. This will need to be addressed prior to discharge. 5. Hypertension. Pressures are well controlled. 6. Hyperlipidemia. Currently on atorvastatin. 7. Type 2 diabetes mellitus. Treated with metformin. Will plan fingerstick blood sugars while he is in the hospital. Overall he appears stable. He is tolerating the addition of mexiletine with no side effects. Plan: He will receive a dose of mexiletine this morning. I will plan to monitor him till about noon. If he is doing well at that time all plan for discharge today with close follow-up by Dr. Maxi Arshad. Subjective: He is doing well today. He has no complaints of chest discomfort or dyspnea. In reviewing telemetry there have not been any identified arrhythmias. He has received 2 doses now of mexiletine and is due for a dose currently. His potassium has been corrected. Objective: Vital Signs Temp Pulse Resp BP Pulse Ox 36.6 C 53 L 12 103/56 L 95 09/06/17 07:14 09/06/17 07:14 09/06/17 07:14 09/06/17 07:14 09/06/17 07:14 Laboratory Results 09/05/17 04:20 09/06/17 04:17 09/05/17 09/06/17 09/07/17 05:59 05:59 05:59 Intake Total 1000 2096 Output Total 250 2150 Balance 750 -54 Physical Exam - Physical Exam General Appearance: WD/WN, alert, no apparent distress EENT: PERRL/EOMI, normal ENT inspection, pharynx normal, TMs normal Neck: non-tender, full range of motion, supple, normal inspection Respiratory: chest non-tender, lungs clear, normal breath sounds Cardiac/Chest: normal peripheral pulses, regular rate, rhythm, other (ICD site with Steri-Strips intact) Peripheral Pulses: 2+: carotid (R), carotid (L), femoral (R), femoral (L), dorsalis-pedis (R), dorsalis-pedis (L) Abdomen: normal bowel sounds, non-tender, soft Male Genitalia: deferred Rectal: deferred Back: Normal inspection Skin: normal color, warm/dry Extremities: normal range of motion, non-tender, normal inspection, normal capillary refill Neuro/Psych: no motor/sensory deficits, alert, normal mood/affect, oriented x 3 ICD10 Worksheet Patient Problems: Problems Problem Status Onset Cardiomyopathy Acute Cardiac defibrillator in place Acute Ventricular tachycardia Acute Atrial fibrillation Acute Seizure Acute Cardiac arrest Acute Cardiac arrhythmia Acute
[2017-09-06] MEDS: ASPIRIN 325 MG TAB PO SCH (08:57)
[2017-09-06] MEDS: AMIODARONE HCL 200 MG TAB PO SCH (08:57)
[2017-09-06] MEDS: FUROSEMIDE 20 MG TAB PO SCH (08:58)
[2017-09-06] MEDS: buPROPion SR 150 MG TAB PO SCH (08:58)
[2017-09-06] MEDS: SPIRONOLACTONE 25 MG TAB PO SCH (08:58)
[2017-09-06] MEDS: CLOPIDOGREL BISULFATE 75 MG TAB PO SCH (08:58)
[2017-09-06] MEDS: MEXILETINE HCL 200 MG CAP PO SCH ×2 (08:58→16:39)
[2017-09-06] MEDS: METOPROLOL SUCCINATE XR 25 MG TAB PO SCH (08:58)
[2017-09-06] MEDS: CHOLECALCIFEROL VIT D3 1,000 UNITS TAB PO SCH (08:58)
[2017-09-06] MEDS: PANTOPRAZOLE SODIUM 40 MG TAB PO SCH (08:58)
[2017-09-06] MEDS: POTASSIUM CL 20 MEQ TAB PO SCH (08:58)
[2017-09-06] MEDS: OMEGA-3 FATTY ACIDS 1,000 MG CAP PO SCH (08:59)
--- NOTE | 2017-09-06 09:44 | CPEKG ---
Heart Rate: 58 RR Interval: 1034 P-R Interval: 216 QRSD Interval: 142 QT Interval: 500 QTC Interval: 492 P [place]: 61 QRS [place]: -66 T Wave [place]: 93 EKG Severity - ABNORMAL ECG - EKG Impression: SINUS RHYTHM EKG Impression: NONSPECIFIC IVCD WITH LAD EKG Impression: LEFT VENTRICULAR HYPERTROPHY EKG Impression: LATERAL INFARCT, AGE INDETERMINATE EKG Impression: CONSIDER ANTERIOR INFARCT EKG Impression: SIMILAR TO 09/05/2017 Electronically Signed By: Madhavi Alfaro 06-Sep-2017 21:45:49
--- NOTE | 2017-09-06 15:44 | ASDISCHSUM ---
Discharge Information Plan Status:Home with No Needs Medically Cleared to Leave:09/06/2017 Discharge Date:09/06/2017 CM D/C Disposition:Home, Routine, Self-Care ADT D/C Disposition:Home, Routine, Self-Care Projected Discharge Date:09/06/2017 Transportation at D/C:Family Discharge Delay Reason: Follow-Up Date:09/06/2017 Discharge Slot: Final Diagnosis: Placement Information Patient Contact Information Contact Name:CARLOS Relationship: Address:[address] Work Phone: City:[place] [facility] Phone: [facility]/Zip Code:[place] [address] Email: Financial Information Financial Class:[employer] Primary Plan Desc:HAN Reanna O [facility] Primary Plan Number:[id number] Secondary Plan Desc: Secondary Plan Number: Assessment Information LACE LACE Length of stay for Answers: 1 day current admission Acuity / Level of Answers: Yes Care: Did the patient have an inpatient admission? Comorbidities - select Answers: Congestive heart failure all that apply Coronary Artery Disease Diabetes (uncontrolled or controlled) Previous myocardial infarction Other Notes: Vtach, ischemic cardiomyopathy, paroxys mal afib HTN, # of Emergency department Answers: 1-2 visits in the last 6 months Score: 12 Date Signed: 09/06/2017 03:43 PM Electronically Signed By:Leena Vazquez RN [facility] Progress Note CM Note CM Note Notes: 09/05/2017 Case Management Note Reviewed chart, discussed with RN. Pt is and daughter has been visiting in hospital. Pt is employed. Pt was independent in ADL's prior to admission. Pt was admitted for VT, is being treated with IV medications with a plan to switch to PO medication prior to d/c. There is a Cardiac Rehab consult ordered. Case Management d/c poc: anticipating independent with follow up as directed. Case Management available if needs change. Date Signed: 09/05/2017 01:58 PM Electronically Signed By:Leena Vazquez RN Case Management Discharge Plan Note Case Management Discharge Discharge Order Complete? Answers: Yes Patient to Obtain Answers: Independently Medications Transportation Arranged Answers: Family/Friends Discharge Comments Notes: 09/06/2017 Case Management Note Pt to discharge independent with follow up as directed. Date Signed: 09/06/2017 03:43 PM Electronically Signed By:Leena Vazquez RN Intervention Information
[2017-09-06 15:51] VITALS: BP 107/60
[2017-09-07] MEDS ORDERED: buPROPion SR 150 MG TAB PO SCH (09:00)
--- NOTE | 2017-09-09 14:56 | PDCARPN ---
[facility] Patient Name: AURA RIVERA Rpt#: [id number] Unit Number: [id number] Attending/ER Physician: Maxi Arshad MD Patient Type: DIS IN Adm Date/Source: 09/05/17 PHY Discharge Date: 09/06/17 Primary Carrier: [employer] PPO HMO OPEN ACC LOCAL Documented by: Gama Meadows NP on Date/Time:09/04/17 1810 Cardiology Progress Note Chief Complaint: patient reports occasional episodes of palpitations. Assessment/Plan: Assessment: Please see Dr. Arshad's office note dated 09/04/2017, to be used as official history and physical. Copy has been placed in his physical chart. 66-year-old male with significant past history of CAD, previous anterior [place], ischemic cardiomyopathy (EF 31-35% Echo 08/31/2017 [facility]), recent PCI with JEREMY implantation circumflex, (3.0 x 16 synergy 08/06/2017), PAF, chronic systolic heart failure , history of VT storm, with remote AICD implantation, with recent AICD generator change (08/13/2017) , type 2 diabetes, hypercholesteremia, hypertension, and hyperlipidemia. Admitted today for ongoing episodes of VT with noted episodes of ATP therapy. Currently denies of any chest pain, shortness of breath, or symptoms suggesting of ischemia. Reports no episodes of palpitations. Reports no recent therapeutic AICD shocks. Plan: 1. Ventricular tachycardia: Started on lidocaine drip. In 24 hours plan to switch to mexilitene. Resumed on home dose of amiodarone. and beta-matthias metoprolol succinate. 2. CAD: Recent PCI with JEREMY implantation of the circumflex. MPI study done at [facility] showed no changes, continue on home dose anti-platelet therapy of aspirin and clopidogrel. Beta-matthias of metoprolol. 3. Ischemic cardiomyopathy: EF 31-35% Echo 08/31/2017 from [facility]. Continue on metoprolol succinate and home dose diuretic Lasix. Patient had been on entresto, but was discontinued on his last hospitalization (08/06/2017) due to renal insufficiency and hypotension due to VT arrest. Has not been resumed as of this time. Re-evaluate either this hospitalization or follow-up office visit. 4. Paroxysmal atrial fibrillation: Patient maintaining sinus rhythm. Antiarrhythmic amiodarone and metoprolol. During recent hospitalization (08/06/2017) patient's Eliquis discontinued, due to being started on dual anti-platelet therapy in risk of bleeding. Consideration resuming either this hospitalization for as an outpatient. 5. Chronic systolic heart failure: Patient appears to be euvolemic. Resume diuretic therapy as mentioned above. 7. Diabetes type 2: Resume home dose metformin. 8. GERD: Started on Protonix as supplement to patient's home dose Prilosec. 9. Code status: Patient request to be full code 09/04/17 18:10 Subjective: He denies of any chest pressure or pain, reports fatigue symptoms, but denies of any significant shortness of breath, orthopnea, PND, edema, lightheadedness, near-syncope, or syncopal events. Reports occasional episodes of palpitations. Reviewed/Discussed With: other (Dr Arshad and Dr Osorio) Objective: Vital Signs (8 Hrs) Temp Pulse Resp BP Pulse Ox 09/04/17 15:58 36.4 C 52 L 16 115/62 97 Intake/Output (24 Hrs) 09/03/17 09/04/17 09/05/17 05:59 05:59 05:59 Intake Total 240 Balance 240 Intake: Oral (ml) 240 Other: Weight 67.5 kg Number of Voids Toilet 1 - Physical Exam Constitutional: WDWN, no apparent distress Ears, Nose, Mouth, Throat: moist mucous membranes Cardiovascular: regular rate and rhythm, no rubs, pulses symmetric bilat, No jugular vein distention , No carotid bruit Peripheral Pulses: 1+: dorsalis-pedis (R), dorsalis-pedis (L), 2+: carotid (R), carotid (L) Respiratory: clear to auscultate bilat, no crackles, no wheezes, No reduced air movement Gastrointestinal: normoactive bowel sounds, no masses Skin: no rashes, warm, no edema Neurologic: AAOx3 Psychiatric: cooperative, interactive, following commands ICD10 Worksheet Patient Problems: Problems Problem Status Onset Cardiomyopathy Acute Cardiac defibrillator in place Acute Ventricular tachycardia Acute Atrial fibrillation Acute Seizure Acute Cardiac arrest Acute Cardiac arrhythmia Acute *This report may have been compiled using a voice recognition system, and might contain typographical errors and blanks.* Gama Meadows NP 09/08/17 0746 <Electronically signed by Gama Meadows NP> 09 T: MALIKA 09/04/[id number] CC:
--- NOTE | 2017-09-09 20:44 | CPEKG ---
Heart Rate: 58 RR Interval: 1034 P-R Interval: 236 QRSD Interval: 86 QT Interval: 432 QTC Interval: 425 P [place]: 78 QRS [place]: 50 T Wave [place]: 25 EKG Severity - ABNORMAL ECG - EKG Impression: SINUS RHYTHM EKG Impression: FIRST DEGREE AV BLOCK EKG Impression: PRIOR ECG WITH IVCD. ABSENT WITH THIS ECG Electronically Signed By: Veronn Matamoros 09-Sep-2017 20:43:35
== END 2017-09-06 18:37 | disposition home or self-care (01) ==
LOC: F2W 15:40 → OBSVTOIN 09-05 10:22 → INTOOBSV 09-05 10:22
PROVIDERS: ADMIT Internal Medicine Cardiovascular Disease; ATTEND Internal Medicine Cardiovascular Disease
DX: I47.2 Ventricular tachycardia (principal); I25.10 Atherosclerotic heart disease of native coronary artery without angina pectoris; I50.22 Chronic systolic (congestive) heart failure; I48.0 Paroxysmal atrial fibrillation; I11.0 Hypertensive heart disease with heart failure; I25.2 Old myocardial infarction; I25.5 Ischemic cardiomyopathy; E11.9 Type 2 diabetes mellitus without complications; E78.00 Pure hypercholesterolemia, unspecified; K21.9 Gastro-esophageal reflux disease without esophagitis; E78.5 Hyperlipidemia, unspecified; Z95.810 Presence of automatic (implantable) cardiac defibrillator; Z95.5 Presence of coronary angioplasty implant and graft; Z79.84 Long term (current) use of oral hypoglycemic drugs
CPT/HCPCS: G0378; J2001

== ENCOUNTER → 2018-03-11 | Outpatient (CLI) | payer OTHER | LOC: BHFA 10:30 | PROVIDERS: ATTEND Internal Medicine Cardiovascular Disease | DX: I48.91 Unspecified atrial fibrillation (principal) ==

== ENCOUNTER 2018-06-15 03:11 | Emergency (ER) | payer OTHER ==
[2018-06-15 04:14] LABS: PLATELET COUNT 154 10^3/uL (150-400)
--- NOTE | 2018-06-15 04:18 | EDPHY ---
H & P Stated Complaint: DIZZINESS, FINT FEELING, ABLATION SET FOR 06/16/18 Time Seen by Provider: 06/15/18 04:00 HPI/ROS: HPI The patient presents with dizziness which began at about 1:30 a.m. This morning. He has a planned cardiac ablation later today. For the last 2 days he has been off of metoprolol and mexiletine. He experiences dizziness when he goes from sitting to standing which last for few seconds. This is been present long-term. However this morning at 1:30 a.m. He was lying in bed and began to feel a similar symptom of lightheadedness. He got up out of bed and the symptoms improved. However he had 2 additional episodes of this lightheadedness which were transient. Now he feels well. He does not have any chest pain, palpitations, shortness of breath. REVIEW OF SYSTEMS 10 systems were reviewed and negative with the exception of the elements mentioned in the history of present illness. PMHx: History of cardiac arrest related to ventricular tachycardia/ventricular fibrillation, CAD with history of TN and stents in place, systolic CHF, AICD in place Soc Hx: Here with his PHYSICAL General Appearance: Alert, no distress Eyes: Pupils equal and round no pallor or injection ENT, Mouth: Mucous membranes moist Respiratory: There are no retractions, lungs are clear to auscultation Cardiovascular: Regular rate and rhythm Gastrointestinal: Abdomen is soft and non-tender, no masses, bowel sounds normal Neurological: A&O, moves all extremities Skin: Warm and dry, no rashes Musculoskeletal: Neck is supple non tender Extremities: symmetrical, full range of motion Psychiatric: Patient is oriented X 3, there is no agitation Source: Patient Exam Limitations: No limitations - Personal History Current Tetanus/Diphtheria Vaccine: Yes Current Tetanus Diphtheria and Acellular Pertussis (TDAP): Yes Tetanus Vaccine Date: 2008 - Medical/Surgical History Hx Asthma: No Hx Chronic Respiratory Disease: No Hx Diabetes: Yes Hx Cardiac Disease: Yes Hx Renal Disease: No Hx Cirrhosis: No Hx Alcoholism: No Hx HIV/AIDS: No Hx Splenectomy or Spleen Trauma: No Other PMH: NIDDM on oral antihyperglycemics,PACEMAKER. CAD s/p TN x2, TN 1991, AFib, Ischemic CM w/ EF 20-30%, HLD, tubular adenoma of colon, vitamin D deficiency,. VT s/p AICD last in 2006, R. shoulder surgery - Social History Smoking Status: Never smoked Constitutional: Initial Vital Signs Temperature (C) 36.6 C 06/15/18 03:18 Heart Rate 72 06/15/18 03:18 Respiratory Rate 18 06/15/18 03:18 Blood Pressure 131/77 H 06/15/18 03:18 O2 Sat (%) 99 06/15/18 03:18 O2 Delivery Mode Room Air Allergies/Adverse Reactions: No Known Allergies Allergy (Verified 08/06/17 16:30) Home Medications: Medication Instructions Recorded Atorvastatin Calcium [Lipitor 40 40 mg PO HS 08/06/17 mg (*)] Cholecalciferol Vit D3 [Vitamin D3 2,000 units PO DAILY 08/06/17 (*)] [place]-3 Fatty Acids [Fish Oil 1000 1,000 mg PO DAILY 08/06/17 mg (*)] Aspirin [Aspirin 325 mg (*)] 325 mg PO DAILY tab 08/15/17 Clopidogrel Bisulfate [Plavix (*)] 75 mg PO DAILY #30 tab 08/15/17 Metoprolol Succinate Xr [Toprol Xl 25 mg PO DAILY #30 tab.sr 08/15/17 25 mg (*)] Levothyroxine [Synthroid 50 mcg 50 mcg PO DAILY06 06/09/18 (*)] Mexiletine HCl [Mexiletine HCl 150 150 mg PO BID 06/09/18 mg (*)] Medical Decision Making - Diagnostics EKG Interpretation: EKG: Complete interpretation has been separately recorded in the [facility] archive. Summary impression: Left bundle branch block Imaging Results: Chest x-ray shows no cardiomegaly, no signs of pulmonary edema or fluid overload , interpreted by me, radiology interpretation is pending. Imaging: I viewed and interpreted images myself Differential Diagnosis: This is a 67-year-old male with severe cardiac disease including systolic CHF, CAD with stents in place, history of ventricular fibrillation causing cardiac arrest, presents with episodes of lightheadedness tonight while lying in bed. He now feels well. He did not have any chest pain, shortness of breath, palpitations. EKG shows left bundle branch block. Plan for basic labs, chest x -ray, cardiac monitoring in the emergency department. 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 Chest x-ray and EKG were unremarkable. CBC, chemistries, troponin were all negative. He had no ongoing symptoms here. I feel he is suitable for discharge at this time. - Data Points Laboratory Results: Laboratory Results 06/15/18 03:35 06/15/18 03:35 06/15/18 06/15/18 06/15/18 04:47 03:35 03:35 WBC RBC Hgb Hct MCV MCH MCHC RDW Plt Count MPV Neut % (Auto) Lymph % (Auto) [place] % (Auto) Eos % (Auto) Baso % (Auto) Nucleat RBC Rel Count Absolute Neuts (auto) Absolute Lymphs (auto) Absolute Monos (auto) Absolute Eos (auto) Absolute Basos (auto) Absolute Nucleated RBC Immature Gran % Immature Gran # Sodium 137 mEq/L mEq/L (135-145) Potassium 4.0 mEq/L mEq/L (3.5-5.2) Chloride 99 mEq/L mEq/L (97-110) Carbon Dioxide 27 mEq/l mEq/l (22-31) Anion Gap 11 mEq/L mEq/L (6-14) BUN 14 mg/dL mg/dL (7-23) Creatinine 0.8 mg/dL mg/dL (0.7-1.3) Estimated GFR > 60 Glucose 101 mg/dL H mg/dL (70-100) Calcium 9.1 mg/dL mg/dL (8.5-10.4) Total Bilirubin 0.7 mg/dL mg/dL (0.1-1.4) AST 165 IU/L H IU/L (17-59) ALT 165 IU/L H IU/L (21-72) Alkaline Phosphatase 142 IU/L H IU/L (38-126) POC Troponin I 0.01 ng/mL ng/mL (0.00-0.08) Total Protein 7.5 g/dL g/dL (6.3-8.2) Albumin 4.3 g/dL g/dL (3.5-5.0) Urine Color PALE YELLOW Urine Appearance CLEAR Urine pH 6.0 (5.0-7.5) Ur Specific [place] 1.004 (1.002-1.030) Urine Protein NEGATIVE (NEGATIVE) Urine Ketones NEGATIVE (NEGATIVE) Urine Blood NEGATIVE (NEGATIVE) Urine Nitrate NEGATIVE (NEGATIVE) Urine Bilirubin NEGATIVE (NEGATIVE) Urine Urobilinogen NEGATIVE EU EU (0.2-1.0) Ur Leukocyte Esterase NEGATIVE (NEGATIVE) Urine Glucose NEGATIVE (NEGATIVE) 06/15/18 03:35 WBC 4.45 10^3/uL 10^3/uL (3.80-9.50) RBC 4.90 10^6/uL 10^6/uL (4.40-6.38) Hgb 15.7 g/dL g/dL (13.7-17.5) Hct 46.5 % % (40.0-51.0) MCV 94.9 fL fL (81.5-99.8) MCH 32.0 pg pg (27.9-34.1) MCHC 33.8 g/dL g/dL (32.4-36.7) RDW 15.0 % % (11.5-15.2) Plt Count 154 10^3/uL 10^3/uL (150-400) MPV 11.3 fL fL (8.7-11.7) Neut % (Auto) 62.5 % % (39.3-74.2) Lymph % (Auto) 26.5 % % (15.0-45.0) [place] % (Auto) 9.0 % % (4.5-13.0) Eos % (Auto) 0.9 % % (0.6-7.6) Baso % (Auto) 0.7 % % (0.3-1.7) Nucleat RBC Rel Count 0.0 % % (0.0-0.2) Absolute Neuts (auto) 2.78 10^3/uL 10^3/uL (1.70-6.50) Absolute Lymphs (auto) 1.18 10^3/uL 10^3/uL (1.00-3.00) Absolute Monos (auto) 0.40 10^3/uL 10^3/uL (0.30-0.80) Absolute Eos (auto) 0.04 10^3/uL 10^3/uL (0.03-0.40) Absolute Basos (auto) 0.03 10^3/uL 10^3/uL (0.02-0.10) Absolute Nucleated RBC 0.00 10^3/uL 10^3/uL (0-0.01) Immature Gran % 0.4 % % (0.0-1.1) Immature Gran # 0.02 10^3/uL 10^3/uL (0.00-0.10) Sodium Potassium Chloride Carbon Dioxide Anion Gap BUN Creatinine Estimated GFR Glucose Calcium Total Bilirubin AST ALT Alkaline Phosphatase POC Troponin I Total Protein Albumin Urine Color Urine Appearance Urine pH Ur Specific [place] Urine Protein Urine Ketones Urine Blood Urine Nitrate Urine Bilirubin Urine Urobilinogen Ur Leukocyte Esterase Urine Glucose Point of Care Test Results: Chemistry 06/15/18 04:47 POC Troponin I 0.01 ng/mL ng/mL (0.00-0.08) Departure - Departure Disposition: Home, Routine, Self-Care Clinical Impression: Dizziness Condition: Good Instructions: Lightheadedness (ED) Additional Instructions: Please return to the emergency department if your worse in any way. Referrals: Obed George MD [Medical Doctor] - As per Instructions DOUG BARBOZA [Primary Care Provider] - As per Instructions
[2018-06-15 05:24] VITALS: BP 109/70
[2018-06-16] MEDS ORDERED: PROPOFOL/EMULSION 500 MG/50 ML BOTTLE IV ONE ×3 (12:58→15:20)
[2018-06-16] MEDS ORDERED: PHENYLEPHRINE HCL 100 MCG/ML SYR ONE (13:08)
[2018-06-16] MEDS ORDERED: ePHEDrine SULFATE 25 MG/5 ML SYR ONE ×3 (13:08→14:29)
[2018-06-16] MEDS ORDERED: PROPOFOL 200 MG/20 ML VIAL ONE ×3 (13:10→17:18)
[2018-06-16] MEDS ORDERED: fentaNYL 100 MCG/2 ML INJ ONE ×2 (13:13→13:48)
[2018-06-16] MEDS ORDERED: ROCURONIUM 50 MG/5 ML VIAL ONE (16:21)
[2018-06-16] MEDS ORDERED: FUROSEMIDE 20 MG/2 ML VIAL ONE ×2 (17:29)
[2018-06-16] MEDS ORDERED: SUGAMMADEX SODIUM 200 MG/2 ML VIAL IVP ONE (17:36)
== END 2018-06-15 05:54 | disposition home or self-care (01) ==
DX: R42 Dizziness and giddiness (principal); I47.2 Ventricular tachycardia; I25.10 Atherosclerotic heart disease of native coronary artery without angina pectoris; I50.22 Chronic systolic (congestive) heart failure; I48.0 Paroxysmal atrial fibrillation; I11.0 Hypertensive heart disease with heart failure; I25.2 Old myocardial infarction; E11.9 Type 2 diabetes mellitus without complications; Z95.5 Presence of coronary angioplasty implant and graft; Z79.84 Long term (current) use of oral hypoglycemic drugs
CPT/HCPCS: 84484-ER; J1940; J2370; J2704; J3010

== ENCOUNTER 2018-06-16 10:55 | Observation (INO) | payer OTHER ==
[2018-06-16] MEDS ORDERED: NS 1,000 ML IV ONE (11:04)
--- NOTE | 2018-06-16 11:25 | CPEKG ---
Test Reason : OPEN Blood Pressure : / mmHG Vent. Rate : 062 BPM Atrial Rate : 063 BPM P-R Int : 183 ms QRS Dur : 165 ms QT Int : 474 ms P-R-T Axes : 056 -64 095 degrees QTc Int : 482 ms Sinus rhythm Left bundle branch block Confirmed by Rudy Yates ([id number]) on 06/16/2018 11:24:39 AM Referred By: Gilmar Masters Confirmed By:Rudy Yates
--- NOTE | 2018-06-16 11:35 | PDGENHP ---
History & Physical Chief Complaint: sustained VT History of Present Illness: Ischemic cardiomyopathy, recurrent sustained VT Relevant Physical Exam: NAD, A+Ox4, RR/NR, CTAB Cardiorespiratory Assessment: VT -> EPS/ablation
[2018-06-16 11:47] LABS: PLATELET COUNT 160 10^3/uL (150-400)
[2018-06-16] MEDS ORDERED: ceFAZolin 2 GM/DEXTROSE 100 ML IV ONE (12:00)
[2018-06-16 12:08] LABS: INR 1.04 (0.83-1.16); PROTIME(PATIENT) 13.2 SEC (12.0-15.0)
[2018-06-16] MEDS ORDERED: HEPARIN 10,000 UNIT/10 ML MDV (1,000 UNIT/ML) ONE (12:14)
[2018-06-16] MEDS ORDERED: ISOPROTERENOL HCL/D5W 0.2 MG/50 ML BAG IV ONE (12:14)
[2018-06-16] MEDS ORDERED: BUPIVACAINE 0.75% 10 ML SDV ONE (12:14)
[2018-06-16] MEDS ORDERED: LIDOCAINE 1% 300 MG/30 ML SDV ONE (12:14)
[2018-06-16] MEDS ORDERED: HEPARIN/DEXTROSE 25,000 UNIT/500 ML BAG ONE (13:38)
[2018-06-16] MEDS ORDERED: PROTAMINE SULFATE 50 MG/5 ML VIAL IVP ONE (17:28)
[2018-06-16] MEDS ORDERED: IOPAMIDOL (ISOVUE-300) 100 ML BTL ONE (17:30)
[2018-06-16] MEDS ORDERED: ACETAMINOPHEN 325 MG TAB PO PRN (17:50)
[2018-06-16] MEDS ORDERED: HYDROCODONE/APAP 5/325 TAB PO PRN (17:50)
--- NOTE | 2018-06-16 18:48 | EPPROC ---
Electrophysiology Procedure Note: Date: 06/16/18 [employer]: Monster Masters MD Procedures: Comprehensive EP study and catheter ablation of ventricular tachycardia - 65382 Intracardiac echo - 57849 Transseptal access - [id number] Indications: 67yo M with chronic systolic heart failure owing to ischemic cardiomyopathy; recurrent sustained monomorphic VT, refractory to treatment with amiodarone and mexiletine, with multiple ICD ATP and shocks. He presents for catheter ablation. Cardiac imaging with known infarction in a "wraparound LAD" pattern. Clinical VT from ICD interrogation shows farfield monophasic R waveform with relatively late local RV EGM, TCL 310-360ms ([place] vs AAD- modified). Techniques: Following informed consent, the patient was brought to the EP lab in a fasting nonsedated state, in sinus rhythm. ICD interrogation was performed , disabling tachy therapies. IV antibiotics were administered. General anesthesia was provided by the anesthesiology service. Bilateral groins were prepped and draped in usual sterile fashion. vascular access was obtained under US guidance in the RFV x3 (5Fr, 8Fr, SL-0 later exchanged for Mobi) and RFA x1 ( 4Fr, later upsized to Arrowflex). Weight based heparin bolus and drip was administered, targeting ACT 300-350sec. A SoundStar ICE catheter was inserted, and a CARTO Sound map was created of the LV, paps, aortic valve cusps, and coronary artery takeoffs. A quad was advanced to RV apex. A Gabriela transseptal needle was inserted in the SL-0 and the system was positioned at the fossa ovalis under ICE guidance. The fossa was crossed and the sheath was positioned in the mid-LA. This was then exchanged over a wire for a Mobi sheath, which was connected to continuous saline irrigation. A Decanav multipolar catheter, as well as a CredoraxTouch SF ablation catheter, were used to create a CARTO map of the LV; substrate mapping was performed, utilizing bipolar and unipolar voltage as well as LAT in sinus rhythm. The substrate map revealed a dilated LV, with a large area of infarction involving the circumferential mid to apical LV; this territory was dilated. The basal LV showed relatively normal substrate. Within the zone of infarction, multiple areas of abnormal local potentials were tagged; specifically, the mid- septal, distal inferior, apical, and mid-lateral segments contained extensive abnormal local potentials. LAT map of the infarct showed locally delayed conduction within these regions as well. During substrate mapping, the patient spontaneously converted to monomorphic VT rhythm after a run of catheter-induced ectopy. VT1 showed RBLS axis, V3 transition, with TCL 290-300ms. Comparison with the ICD EGMs showed that this was not the clinical VT. This rhythm was poorly tolerated, and thus the patient was defibrillated to sinus rhythm (single 200J biphasic shock). Due to poorly tolerated VT, reinduction of clinical VT was not attempted. The regions of interest within the infarct zone were then targeted for RF ablation. 40W power and half-normal saline irrigation was used. Extensive ablation was performed in the multiple regions of interest. Following ablation, high-output pacing within the ablated zone was used to confirm electrically unexcitable scar throughout. After completion of ablation, ventricular programmed stimulation was performed from RVa catheter. VERP 600/280ms VERP 600/320/220ms VERP 600/320/260/200ms At 600/320/260/240/240ms, nonsustained monomorphic VT was induced with LBLI axis and V3 transition; this was not the clinical VT. At this stage, due to extensive ablation and induction of nonsustained VT only with a very aggressive protocol, the procedure was completed. Final ICE survey showed no pericardial effusion; biventricular function was similar to baseline. All catheters were removed. RFA angiogram via the Arrowflex sheath showed anatomy amenable to Angioseal deployment, and an 8Fr Angioseal was successfully deployed. A temporary hemostasis suture was applied to the RFV access site, and venous sheaths were removed; manual pressure was held until hemostasis. ICD therapies were re-enabled. The patient tolerated the procedure well. EBL: <30cc Complications: none Plan: -ICU overnight -echo in AM -continue plavix; stop aspirin; start eliquis for 3 months post ablation -right groin precautions for 10 days -staged BIV ICD upgrade to address LBBB Patient Problems: Problems Problem Status Onset Atrial fibrillation Acute Cardiac arrest Acute Cardiac arrhythmia Acute Cardiac defibrillator in place Acute Cardiomyopathy Acute Seizure Acute Ventricular tachycardia Acute
[2018-06-16] MEDS: MEXILETINE HCL 150 MG CAP PO SCH (19:45)
[2018-06-16] MEDS: ATORVASTATIN CALCIUM 40 MG TAB PO SCH (19:45)
[2018-06-16] MEDS ORDERED: AMIODARONE HCL 150 MG/100 ML BAG (1.5 MG/ML) IV ONE ×2 (22:10→22:12)
[2018-06-16] MEDS ORDERED: AMIODARONE HCL 100 ML IV ONE (22:30)
[2018-06-16] MEDS ORDERED: AMIODARONE HCL 100 ML IV PRN (22:40)
[2018-06-16] MEDS ORDERED: AMIODARONE TACHY-6HR INFSN (ORDER 2/3) PREMIX IV ONE (23:00)
[2018-06-17] MEDS ORDERED: APIXABAN 5 MG TAB PO ONE
[2018-06-17] MEDS: AMIODARONE TACHY-6HR INFSN (ORDER 2/3) PREMIX IV SCH ×2 (03:24→10:57)
[2018-06-17] MEDS: LEVOTHYROXINE 50 MCG TAB PO SCH (05:31)
[2018-06-17 06:05] LABS: PLATELET COUNT 125 10^3/uL (150-400)
[2018-06-17 06:14] LABS: CREATINE KINASE 145 IU/L (0-224)
[2018-06-17] MEDS: CLOPIDOGREL BISULFATE 75 MG TAB PO SCH (08:44)
[2018-06-17] MEDS: APIXABAN 5 MG TAB PO SCH ×2 (08:44→20:54)
[2018-06-17] MEDS: METOPROLOL SUCCINATE XR 25 MG TAB PO SCH (08:44)
[2018-06-17] MEDS: MEXILETINE HCL 150 MG CAP PO SCH ×2 (08:44→20:54)
[2018-06-17] MEDS ORDERED: POTASSIUM CL 20 MEQ TAB PO ONE (10:32)
--- NOTE | 2018-06-17 10:35 | POSTANESTH ---
Post Anesthetic Evaluation Cardiovascular Status: Normal, Stable Respiratory Status: Normal, Stable Level of Consciousness/Mental Status: Can Participate in Eval Pain Control: Adequate, Prn Tx Ordered Nausea/Vomiting Control: Adequate, Prn Tx Ordered Complications Possibly Related to Anesthesia: None Noted
[2018-06-17] MEDS ORDERED: AMIODARONE A.FIB-18HR INFSN (ORDER 3/3) IV ONE (11:00)
--- NOTE | 2018-06-17 11:54 | ASMTCMCOM ---
CM Note CM Note Notes: Patient admitted for a comprehensive EP study and catheter ablation of VT. He is POD#1. He will be monitored overnight in the ICU and have an echo tomorrow AM. Patient is normally independent, lives w . No d.c needs anticipated; CM available if this changes. Date Signed: 06/17/2018 11:54 AM Electronically Signed By:Faby Castaneda RN
--- NOTE | 2018-06-17 12:22 | PDCARPN ---
Cardiology Progress Note Chief Complaint: postop from VT ablation Assessment/Plan: Assessment: -recurrent sustained VT, POD1 from extensive ablation -chronic systolic heart failure owing to ischemic cardiomyopathy -sick sinus syndrome + LBBB, planned ICD upgrade to BIV -history of elevated LFTs on amiodarone (200mg bid dose) Plan: -continue amiodarone gtt at 1mg/min until tomorrow AM, then will convert to PO; ultimately planning on 200mg daily dose for 1 month post ablation -holding aspirin; on eliquis 5mg bid 3 months post-ablation; continue plavix -continue mexiletine -will keep him in ICU status until tomorrow AM 06/17/18 12:23 Subjective: Overnight from VT ablation, Mr Coles had two episodes (around 9pm) of monomorphic VT which failed ATP and subsequently terminated with a single ICD shock. Rates around 200bpm. Started on amiodarone gtt and has been stable since. Echo this Am shows no pericardial effusion. He's understandably anxious about this, especially given his back story, but I' ve expressed to him the need to be patient given that we're <24hrs sp extensive ablation, and that I expect his VT to settle over the next 2-3 months. Of course , if we see ongoing ventricular arrhythmias, we'll have to consider repeat ablation. Objective: Vital Signs (8 Hrs) Temp Pulse Resp BP Pulse Ox 06/17/18 12:00 36.6 C 55 L 24 H 117/67 96 06/17/18 10:00 59 L 18 122/71 H 97 06/17/18 08:00 61 19 103/46 L 97 06/17/18 06:00 63 19 110/64 97 06/17/18 05:00 37.1 C 61 13 105/61 95 Intake/Output (24 Hrs) 06/16/18 06/17/18 06/18/18 05:59 05:59 05:59 Intake Total 400 Output Total 2550 Balance -2150 Intake: IV Intake (ml) 400 Output: Urine (ml) 2550 Catheter 2550 Other: Weight 65.317 kg Result Diagrams: 06/17/18 05:30 06/17/18 05:30 Cardiac Labs: Cardiac Lab Results (72 Hrs) 06/17/18 05:30 Troponin I 2.070 H Telemetry: see HPI Echocardiogram: no effusion; severely reduced LV systolic function - Physical Exam Eyes: PERRL, EOMI Ears, Nose, Mouth, Throat: moist mucous membranes Cardiovascular: regular rate and rhythm, no rubs Peripheral Pulses: 2+: femoral (R) (no bruit) Respiratory: clear to auscultate bilat Gastrointestinal: normoactive bowel sounds Skin: no rashes Neurologic: AAOx3, CN II-XII grossly intact Psychiatric: cooperative, interactive, following commands ICD10 Worksheet Patient Problems: Problems Problem Status Onset Atrial fibrillation Acute Cardiac arrest Acute Cardiac arrhythmia Acute Cardiac defibrillator in place Acute Cardiomyopathy Acute Seizure Acute Ventricular tachycardia Acute
--- NOTE | 2018-06-17 12:31 | ECHO ---
[email or web address] [address] Main: [phone] Echocardiography Examination Transthoracic Name: AURA RIVERA MR#: [id number] Study Date: 06/17/2018 Study Time: 08:45 AM Date of : 1950 Age: 67 year(s) Height: 172.7 cm (68 in.) Weight: 65.32 kg (144 lb.) BSA: 1.78 m2 Gender: Male Examination: Echo Contrast: Image Quality: Adequate Rhythm: Pacemaker rhythm Heart Rate: 61 bpm BP: 103 mmHg/46 mmHg Indication: Post Ablation Procedure Staff Referring Physician: Pulley Man: James Ghotra RDCS Reading Physician: Joshua Mejia MD Requesting Provider: Ordering Physician: Gilmar Masters MD Indication: Post Ablation Measurements Chambers AV/MV Label Value Normal Value Label Value Normal Value IVSd, 2D 0.9 cm (0.6cm - 1.1cm) AV PGmax 4 mmHg LVDd, 2D 5.9 cm (4.2cm - 5.9cm) AV PGmean 2 mmHg LVDs, 2D 5.5 cm (2.1cm - 4cm) AV Vmax 1.05 m/s LVEF, 2D 17 % (54% - 74%) GRACE D (continuity eq. 1.5 cm2 LVEF, BP 17 % (55% - 70%) VTI) LVOT PGmean 1 mmHg MV A Vmax 0.95 m/s LVOT Vmean 0.33 m/s MV E' lateral 0.04 m/s LVOTd 2 cm (1.9cm - 2.1cm) MV E' mean 0.03 m/s LVPWd, 2D 0.8 cm (0.6cm - 1cm) MV E' septal 0.02 m/s RVDd, 2D 2 cm (1.9cm - 3.8cm) MV E Vmax 0.37 m/s LA Volume, BP 55 ml (18ml - 58ml) MV E/A 0.39 LAESV index, BP 30.9 ml/m2 MV E/E' lateral 9.5 Additional Vessels MV E/E' mean 12.33 Label Value Normal Value MV E/E' septal 17.3 (0.45 - 1.25) AoRoot, MM 3 cm (2.2cm - 3.7cm) TV/PV Label Value Normal Value PV PGmax 3 mmHg PV Vmax, Caliper 0.8 m/s (0.6m/s - 0.9m/s) Patient: AURA RIVERA Study Date: 06/17/2018 Page 1 of 3 08:45 AM Conclusions Left Ventricle: CONCLUSIONS:1)Severe LV systolic dysfunction with a LVEF of 17% and akinesis of distal septum, anterior and apical dawson.2)Mild to moderate LV enlargement noted.3)Diastolic dysfunction noted.4)Mild left atrial enlargement noted.5)AICD wires noted in right heart chambers.6)Mild to moderate MR without MV prolapse.7)Mild TR noted.8)Trivial pericardial effusion with no signs of cardiac tamponade. Findings Left Ventricle: Mildly to moderately dilated left ventricle. CONCLUSIONS: 1)Severe LV systolic dysfunction with a LVEF of 17% and akinesis of distal septum, anterior and apical dawson. 2)Mild to moderate LV enlargement noted. 3)Diastolic dysfunction noted. 4)Mild left atrial enlargement noted. 5)AICD wires noted in right heart chambers. 6)Mild to moderate MR without MV prolapse. 7)Mild TR noted. 8)Trivial pericardial effusion with no signs of cardiac tamponade. Grade I Diastolic Dysfunction. No LV hypertrophy. akinesis of distal septum, anterior and apical dawson. No LV apical thrombus noted. Right Ventricle: Normal size right ventricle. Right ventricular systolic function is normal. There is a pacing wire present in the right ventricle. Left Atrium: The left atrium is mildly dilated. Right Atrium: The right atrium is normal in size. Mitral Valve: Mitral valve appears structurally normal. Mild to moderate mitral regurgitation. No mitral valve stenosis. Aortic Valve: Aortic leaflets are structurally normal. No aortic valve regurgitation. The aortic valve is trileaflet. Tricuspid Valve: Tricuspid valve leaflets are structurally normal. Mild tricuspid regurgitation. Pulmonic Valve: Pulmonic leaflets are structurally normal. No pulmonic valve regurgitation is evident. Aorta: The aorta is normal. The aortic root size in M-mode measures 3.0 cm. Aorta Measurements AoRoot, MM is 3.0 cm. Pericardium: Trivial pericardial effusion. Exam Details Procedure Ordered: Echo Procedure Status: Routine study Image Quality: Adequate Facility Location: Cardiac Echo 1 (No Signature Object) Patient: AURA RIVERA Study Date: 06/17/2018 Page 2 of 3 08:45 AM Patient: AURA RIVERA Study Date: 06/17/2018 Page 3 of 3 08:45 AM [id number]
[2018-06-17] MEDS: AMIODARONE HCL 200 ML IV SCH ×2 (16:08→23:12)
[2018-06-17] MEDS: ATORVASTATIN CALCIUM 40 MG TAB PO SCH (20:54)
[2018-06-18] MEDS: AMIODARONE HCL 200 ML IV SCH (04:28)
[2018-06-18] MEDS: LEVOTHYROXINE 50 MCG TAB PO SCH (06:14)
--- NOTE | 2018-06-18 06:38 | CPEKG ---
Test Reason : OPEN Blood Pressure : / mmHG Vent. Rate : 070 BPM Atrial Rate : 071 BPM P-R Int : 159 ms QRS Dur : 163 ms QT Int : 462 ms P-R-T Axes : 054 -55 096 degrees QTc Int : 499 ms Sinus rhythm Ventricular premature complex Left anterior fasicular block justin-septal q waves Confirmed by Rudy Yates ([id number]) on 06/18/2018 6:38:28 AM Referred By: Gilmar Masters Confirmed By:Rudy Yates
--- NOTE | 2018-06-18 06:43 | CPEKG ---
Test Reason : OPEN Blood Pressure : / mmHG Vent. Rate : 057 BPM Atrial Rate : 057 BPM P-R Int : 174 ms QRS Dur : 169 ms QT Int : 504 ms P-R-T Axes : 030 -64 089 degrees QTc Int : 491 ms Sinus rhythm Left anterior fasicular block Confirmed by Rudy Yates ([id number]) on 06/18/2018 6:42:52 AM Referred By: Gilmar Masters Confirmed By:Rudy Yates
[2018-06-18 07:53] VITALS: BP 127/79
[2018-06-18] MEDS ORDERED: BISACODYL 5 MG EC TAB PO PRN (08:33)
--- NOTE | 2018-06-18 08:51 | PDDCSUM ---
Discharge Summary Discharge Summary: Admission: 06/16/18 Discharge: 06/18/18 Diagnoses: -ventricular tachycardia -chronic systolic heart failure -history of amiodarone intolerance (elevated LFTs on 200mg bid dosing) -coronary artery disease Procedures: -EPS/ ablation of VT - 06/16/18 Hospital course: Following EPS/ablation on 06/16/18, Mr Coles was admitted to ICU for planned overnight observation. Within 6 hours of procedure end, he had two episodes of sustained VT resulting in two ICD shocks. He was started on amiodarone gtt, following which his rhythm has been stable. He's been transitioned onto oral amiodarone (200mg daily dose, lower than his prior dose resulting in transaminosis), with the plan for 1 month of amiodarone therapy, then DC. Due to extensive LV ablation, he was started on eliquis for 3 months; stop aspirin; continue plavix. Physical exam: GEN: NAD HEENT: no bruit, no JVD CV: RR/NR, no rub PULM: CTAB ABD: NABS EXT: 2+ B rad/dp/pt, right groin access site no hematoma or bruit NEURO: A+Ox4, no focal deficits Diet: cardiac Activity: 10 days right groin precautions Meds: on chart Followup: 2 weeks in cardiology clinic
[2018-06-18] MEDS ORDERED: AMIODARONE HCL 200 MG TAB PO SCH (09:00)
[2018-06-18] MEDS: APIXABAN 5 MG TAB PO SCH (09:39)
[2018-06-18] MEDS: MEXILETINE HCL 150 MG CAP PO SCH (09:39)
[2018-06-18] MEDS: METOPROLOL SUCCINATE XR 25 MG TAB PO SCH (09:39)
[2018-06-18] MEDS: CLOPIDOGREL BISULFATE 75 MG TAB PO SCH (09:39)
== END 2018-06-18 12:00 | disposition home or self-care (01) ==
LOC: FCATH 10:55 → F2N 17:50
PROVIDERS: ADMIT Internal Medicine Cardiovascular Disease; ATTEND Internal Medicine Cardiovascular Disease
PROC: B246ZZ4 Ultrasonography of Right and Left Heart, Transesophageal (ICD-10-PCS; principal; 2018-06-16)
PROC: 025L3ZZ Destruction of Left Ventricle, Percutaneous Approach (ICD-10-PCS; principal; 2018-06-16)
DX: I47.2 Ventricular tachycardia (principal); I50.22 Chronic systolic (congestive) heart failure; I49.5 Sick sinus syndrome; I25.10 Atherosclerotic heart disease of native coronary artery without angina pectoris; I44.0 Atrioventricular block, first degree; I48.91 Unspecified atrial fibrillation; E78.00 Pure hypercholesterolemia, unspecified; E11.9 Type 2 diabetes mellitus without complications; I11.0 Hypertensive heart disease with heart failure; I25.2 Old myocardial infarction; Z95.810 Presence of automatic (implantable) cardiac defibrillator
CPT/HCPCS: 93005; 93306; 93654; 93662; C1732; C1759; C1760; C1766; C1893; G0378; J0282; J0690; J1644; J2270; J2720; Q9967

== ENCOUNTER 2018-08-06 17:31 | Inpatient (IN) | payer OTHER ==
[~2018-08-06 17:31] MED LIST: AMIODARONE HCL 100 ML IV ONE
[2018-08-06] MEDS ORDERED: NS 500 ML IV ONE (17:54)
--- NOTE | 2018-08-06 17:55 | EDPHY ---
HPI/HX/ROS/PE/MDM Narrative: CHIEF COMPLAINT: Syncope, lip laceration. HPI: This patient is a 67-year-old male with significant past cardiac history including chronic systolic heart failure due to ischemic cardiomyopathy, recurrent sustained VT, and multiple past ICD shocks. Today, he was shopping at [employer] and had a sudden syncopal episode. He denies any preceding symptoms. He sustained a lip laceration in his fall. He has had lightheadedness associated with his VT in the past. He denies any chest pain. No one witnessed this event and he remained on the ground for 2-3 minutes before calling his children, who picked him up from the [employer] and brought him here to the emergency department. He currently feels well, other than some mild left arm pain. The patient underwent an EP study and catheter ablation for his VT on 06/16/[address] Masters, carroter. He does have a [employer] AICD placed. He denies any fever, shortness of breath, nausea, weakness or numbness in his extremities, or other associated symptoms. REVIEW OF SYSTEMS: A comprehensive 10 system review of systems is otherwise negative aside from elements mentioned in the history of present illness and medical decision making. PMH: Chronic systolic heart failure due to ischemic cardiomyopathy, recurrent sustained VT, and multiple past ICD shocks. SOCIAL HISTORY: Family at bedside. . Retired. Follows up with Dr. George and Dr. Masters, electrophysiologists. PHYSICAL EXAM: General:Patient is alert, in no acute distress. ENT:Eyes are normal to inspection. 1-2 cm laceration on left lower lip. No tooth malocclusion, no tongue laceration ENT inspection otherwise normal. Neck: Normal inspection. Full range of motion. Respiratory:No respiratory distress. Breath sounds normal bilaterally. Cardiovascular: Regular rate and rhythm. Strong peripheral pulses. Normal cap refill. Abdomen:The abdomen is nontender to palpation. There are no peritoneal signs. There are normal bowel sounds. Back: Normal to inspection. No tenderness to palpation. Skin: Normal color. No rash. Warm and dry. Extremities: Normal appearance. Full range of motion. Neuro: Oriented x3. Normal motor function. Normal sensory function. ED Course: 67-year-old male with significant past cardiac history including chronic systolic heart failure due to ischemic cardiomyopathy, recurrent sustained VT, and multiple past ICD shocks presents following a sudden syncopal event this evening. Plan for EKG, labs including CBC, chemistries, POC troponin. Plan to consult with [employer] rep to query the patient's pacemaker. The patient currently feels well. He does have a 1-2cm laceration to the lower lip. EKG was ordered and interpreted by myself. Please see [facility] system for official reading. 18:50 [employer] rep present. She has interrogated the pacemaker. He has had several episodes of VT. His AICD did not deliver any shocks. Reviewed laboratory studies. POC troponin negative at 0.02. Labs otherwise largely unremarkable. 19:[address] Mejia, cardiolgist. Plan to admit patient. Plan for consult with EP, who will discuss adjusting AICD settings w/[employer] rep. 19:[address] Gonsales, hospitalist. He accepts admission. Spoke with Dr. Masters, senior mobile application developer. He will consult throughout the patient's admission. Plan to administer amiodarone at Dr. Masters's request. Patient's amiodarone sensitivity is known and the patient will be monitored. Plan for echocardiogram tomorrow morning. Reassessed patient. Discussed the plan for admission. After further examination , the patient and I concur that his lip laceration is non-suturable. Plan to admit as above. - Data Points Laboratory Results: Laboratory Results 08/06/18 18:05 08/06/18 18:05 08/06/18 08/06/18 08/06/18 18:12 18:05 18:05 WBC 5.25 10^3/uL 10^3/uL (3.80-9.50) RBC 4.46 10^6/uL 10^6/uL (4.40-6.38) Hgb 14.3 g/dL g/dL (13.7-17.5) Hct 42.4 % % (40.0-51.0) MCV 95.1 fL fL (81.5-99.8) MCH 32.1 pg pg (27.9-34.1) MCHC 33.7 g/dL g/dL (32.4-36.7) RDW 13.6 % % (11.5-15.2) Plt Count 158 10^3/uL 10^3/uL (150-400) MPV 11.4 fL fL (8.7-11.7) Neut % (Auto) 63.6 % % (39.3-74.2) Lymph % (Auto) 25.1 % % (15.0-45.0) Claiborne % (Auto) 10.1 % % (4.5-13.0) Eos % (Auto) 0.4 % L % (0.6-7.6) Baso % (Auto) 0.4 % % (0.3-1.7) Nucleat RBC Rel Count 0.0 % % (0.0-0.2) Absolute Neuts (auto) 3.34 10^3/uL 10^3/uL (1.70-6.50) Absolute Lymphs (auto) 1.32 10^3/uL 10^3/uL (1.00-3.00) Absolute Monos (auto) 0.53 10^3/uL 10^3/uL (0.30-0.80) Absolute Eos (auto) 0.02 10^3/uL L 10^3/uL (0.03-0.40) Absolute Basos (auto) 0.02 10^3/uL 10^3/uL (0.02-0.10) Absolute Nucleated RBC 0.00 10^3/uL 10^3/uL (0-0.01) Immature Gran % 0.4 % % (0.0-1.1) Immature Gran # 0.02 10^3/uL 10^3/uL (0.00-0.10) Sodium 135 mEq/L mEq/L (135-145) Potassium 4.1 mEq/L mEq/L (3.5-5.2) Chloride 99 mEq/L mEq/L (97-110) Carbon Dioxide 25 mEq/l mEq/l (22-31) Anion Gap 11 mEq/L mEq/L (6-14) BUN 12 mg/dL mg/dL (7-23) Creatinine 0.9 mg/dL mg/dL (0.7-1.3) Estimated GFR > 60 Glucose 98 mg/dL mg/dL (70-100) Calcium 8.8 mg/dL mg/dL (8.5-10.4) POC Troponin I 0.02 ng/mL ng/mL (0.00-0.08) Medications Given: Discontinued Medications Sodium Chloride (Ns) 500 mls @ 0 mls/hr IV EDNOW ONE; Wide Open PRN Reason: Protocol Stop: 08/06/18 17:55 Last Admin: 08/06/18 18:28 Dose: 500 mls Amiodarone HCl (Amiodarone Hcl) 100 mls @ 600 mls/hr IV EDNOW ONE Stop: 08/06/18 19:54 Last Admin: 08/06/18 20:03 Dose: 100 mls Point of Care Test Results: Chemistry 08/06/18 18:12 POC Troponin I 0.02 ng/mL ng/mL (0.00-0.08) General Time Seen by Provider: 08/06/18 17:54 Initial Vital Signs: Initial Vital Signs Temperature (C) 37.3 C 08/06/18 17:46 Heart Rate 54 L 08/06/18 17:46 Respiratory Rate 18 08/06/18 17:46 Blood Pressure 120/62 08/06/18 17:46 O2 Sat (%) 96 08/06/18 17:46 O2 Delivery Mode Room Air Allergies/Adverse Reactions: No Known Allergies Allergy (Verified 08/06/18 17:45) Home Medications: Medication Instructions Recorded Atorvastatin Calcium [Lipitor 40 40 mg PO HS 08/06/17 mg (*)] Cholecalciferol Vit D3 [Vitamin D3 2,000 units PO DAILY 08/06/17 (*)] Gregory-3 Fatty Acids [Fish Oil 1000 1,000 mg PO DAILY 08/06/17 mg (*)] Clopidogrel Bisulfate [Plavix (*)] 75 mg PO DAILY #30 tab 08/15/17 Metoprolol Succinate Xr [Toprol Xl 25 mg PO DAILY #30 tab.sr 08/15/17 25 mg (*)] Levothyroxine [Synthroid 50 mcg 50 mcg PO DAILY06 06/09/18 (*)] Mexiletine HCl [Mexiletine HCl 150 150 mg PO BID 06/09/18 mg (*)] Apixaban [Eliquis] 5 mg PO BID #60 tab 06/18/18 Amiodarone HCl 08/06/18 Entresto 24 mg/26 mg (RX) 08/06/18 Departure - Departure Disposition: [facility] Acute Clinical Impression: Ventricular tachycardia Syncope Qualifiers: Syncope type: unspecified Qualified Code(s): R55 - Syncope and collapse Condition: Fair Report Scribed for: Michael Bustos Report Scribed by: Anabella Sutton Date of Report: 08/06/18 Time of Report: 17:55 Physician Review and Approval Statement: Portions of this note were transcribed by an ED scribe. I personally performed the history, physical exam, and medical decision making; and confirm the accuracy of the information in the transcribed note.
[2018-08-06 18:24] LABS: PLATELET COUNT 158 10^3/uL (150-400)
[2018-08-06] MEDS ORDERED: AMIODARONE HCL 200 ML IV ONE (19:23)
--- NOTE | 2018-08-06 19:44 | CPEKG ---
Test Reason : OPEN Blood Pressure : / mmHG Vent. Rate : 054 BPM Atrial Rate : 054 BPM P-R Int : 180 ms QRS Dur : 169 ms QT Int : 507 ms P-R-T Axes : 046 -60 124 degrees QTc Int : 481 ms Sinus rhythm Left bundle branch block Confirmed by Jamey Leigh ([id number]) on 08/06/2018 7:43:53 PM Referred By: Michael Bustos Confirmed By:Jamey Leigh
[2018-08-06] MEDS ORDERED: AMIODARONE HCL 100 ML IV ONE (19:45)
[2018-08-06] MEDS ORDERED: PROTOCOL POTASSIUM 1 DOSE MISC PRN (20:15)
[2018-08-06] MEDS ORDERED: ZOLPIDEM TARTRATE 5 MG TAB PO PRN (20:15)
[2018-08-06] MEDS ORDERED: PROTOCOL MAGNESIUM 1 DOSE IV PRN (20:15)
--- NOTE | 2018-08-06 20:18 | PDGENHP ---
History and Physical History and Physical: CC: Syncope in a patient with AICD and previous VT/cardiac arrest HISTORY: This patient comes in today after an episode of syncope while shopping at [employer]. He was bent over and started feel lightheaded. He stood up in the lightheadedness kept getting worse any found himself on the floor in [employer]. This was unwitnessed by others. He was bleeding from his lower lip when he got up. He did not feel like he injured himself otherwise. Notably he has a history of recurrent VT, VT storm, cardiac arrest including episode of cardiac arrest in 2018 which occurred in the setting of VT storm with more than 20 shocks from his AICD. Notably he did have a VT ablation earlier this year. He has ischemic heart disease with stents. His device was interogated in ER tonight with evidence of multiple shocks ROS: A comprehensive 10 system review revealed no other significant findings PAST MEDICAL HISTORY: Chronic systolic congestive heart failure Ischemic cardiomyopathy Coronary disease with coronary stenting/anterior VA Recurrent ventricular tachycardia and VT storm including cardiac arrest despite shocks from implanted AICD Amiodarone induced liver toxicity Diabetes type 2 currently diet controlled Previous AFib Hyperlipidemia Hypertension Colon adenomas Vitamin-D deficiency FAMILY MEDICAL HISTORY: He is unaware of any specific family history in the way of heart disease SOCIAL HISTORY: lives with his No tobacco or alcohol Born in [place], lived in [facility] before moving here MEDICATIONS: The patients list has been reconciled by our clinical pharmacist in the EMR. I have reviewed the list and ordered appropriate medicines. PHYSICAL EXAMINATION: Vital Signs: All stable without fever Ediphone Operator: V Paced rhythm Examination: General: alert, oriented, good mentation, relaxed Skin: warm, dry, good color, no rash HEENT: He has a laceration on the left side of his lower lip from his fall today Neck: no mass or jvd Resps: relaxed Lungs: Diminished but otherwise clear breath sounds Heart: regular, no murmur Abdomen: soft, nondistended, nontender, +BS, no mass Upper Extremities: normal Lower Extremities: no edema, warm No Bleeding or bruising Neurologic: normal speech/language, normal reprint sorter, no focal weakness IV site: looks normal LABORATORY DATA: Normal troponin and metabolic panel Unremarkable CBC RADIOLOGY STUDIES: None so far in the ER 12 LEAD EKG: I reviewed tracing in ER which shows a ventricular paced rhythm with no obvious other abnormalities ASSESSMENT: * VT with shocks from AICD despite beta-matthias, mexiletine and amiodarone and a recent VT ablation * Prior history of cardiopulmonary arrest after 23 shocks from his implanted defibrillator * Episodes of chest discomfort could potentially consistent with angina pectoralis * Coronary artery disease with stents * Chronic stable systolic Congestive heart failure * Amiodarone induced hepatic toxicity (currently on amiodarone with liver panel pending) * Diabetes PLANS: * Admission to progressive care unit * IV amiodarone drip has been started (he has been taking amiodarone 200 mg daily at home in addition to metoprolol and mexiletine) * Holding oral amiodarone for the moment pending further instruction from Cardiology * Continue his other cardiac medicines at present * Repeat troponin * Electrolyte protocols * His pacemaker defibrillator device has been interrogated and reprogrammed tonight * Cardiology consult * As there is an apparent history of liver inflammation induced by amiodarone I will check a liver panel * All make him NPO after midnight in case there are any planned procedures for tomorrow I have reviewed the patient's case in detail with Dr. Michael Bustos I have reviewed the patient's past medical records as part of this assessment, including previous hospital admission records
[2018-08-06] MEDS ORDERED: MELATONIN 3 MG TAB PO SCH (21:00)
[2018-08-06] MEDS ORDERED: ATORVASTATIN CALCIUM 40 MG TAB PO SCH (21:00)
[2018-08-06] MEDS: APIXABAN 5 MG TAB PO SCH (22:34)
[2018-08-06] MEDS: SACUBITRIL/VALSARTAN 24/26MG 1 EA TAB PO SCH (22:34)
[2018-08-06] MEDS: MEXILETINE HCL 150 MG CAP PO SCH (22:35)
[2018-08-06] MEDS ORDERED: ONDANSETRON 4 MG/2 ML VIAL IVP PRN (22:54)
[2018-08-07] MEDS ORDERED: AMIODARONE HCL 540 MG in D5W 300 ML IV ONE (02:26)
[2018-08-07] MEDS ORDERED: LEVOTHYROXINE 50 MCG TAB PO SCH (06:00)
[2018-08-07] MEDS ORDERED: POTASSIUM CL 10 MEQ TAB PO ONE (08:17)
[2018-08-07] MEDS ORDERED: CHOLECALCIFEROL VIT D3 2,000 UNITS TAB/CAP PO SCH (09:00)
[2018-08-07] MEDS ORDERED: CLOPIDOGREL BISULFATE 75 MG TAB PO SCH (09:00)
[2018-08-07] MEDS ORDERED: METOPROLOL SUCCINATE XR 25 MG TAB PO SCH (09:00)
[2018-08-07] MEDS ORDERED: OMEGA-3 FATTY ACIDS 1,000 MG CAP PO SCH (09:00)
[2018-08-07] MEDS ORDERED: AMIODARONE HCL 200 MG TAB PO SCH (09:00)
--- NOTE | 2018-08-07 09:58 | PDMN ---
Medical Necessity Medical necessity: Pt meets inpt criteria per MD order and MCG M-340, Syncope, inpt admission indicated for: sustained or symptomatic ventricular tachycardia; pt admitted after syncopal episode, VT w/shocks from AICD despite beta-matthias, mexilitine, and amiodorone and recent VT ablation. Amiodorone gtt initiated, NPO , cardiology consult pending. PMHx includes cardiopulm arrest after shocks from AICD, CAD w/stents, CHF, DM, anticipate>2MN for further eval/management of above.
[2018-08-07] MEDS: APIXABAN 5 MG TAB PO SCH (12:04)
[2018-08-07] MEDS: MEXILETINE HCL 150 MG CAP PO SCH (12:04)
[2018-08-07] MEDS: SACUBITRIL/VALSARTAN 24/26MG 1 EA TAB PO SCH (12:04)
[2018-08-07] MEDS ORDERED: PERFLUTREN LIPID MICROSPHERES 1.1 MG/ML VIAL IV ONE (12:45)
--- NOTE | 2018-08-07 13:40 | SOAPPROG ---
[facility] Progress Note Assessment/Plan: Assessment: chf consultation performed and dictated. 67 y/o man with following cardiac and medical issues: --remote anterior MT in [place] treated medically. --chronic ischemic systolic CHF with LVEF 15% --AICD with frequent VT s/p VT ablation 06/15 with new slow VT and syncope --NIDDM x 3-4 yrs He is having continued symptomatic VT. He has BURKS at 3-4 blocks when not in VT. He is euvolemic. I think his options are referral to [facility] for VAD and OHT evaluation vs upgrade to BIVAICD with another VT ablation with possible ECMO back or both options. REC: 1)no change in meds except run serum K+ 4.5-5.5 2)start KCL 20meq PO TID 3)continue IV Amiodarone gtt 0.5mg/min instead of PO Amiodarone 4)discuss with his [facility] MDs what their recommendations are with new syncope and continued VT. 5)possible ambulance transfer tele to [facility] to [facility] for OHT evaluation this hospitalization. 08/07/18 13:35 Objective: Vital Signs Temp Pulse Resp BP Pulse Ox 36.6 C 52 L 14 118/73 96 08/07/18 11:19 08/07/18 11:27 08/07/18 11:19 08/07/18 11:27 08/07/18 11:19 Laboratory Results 08/07/18 03:13 08/06/18 08/07/18 08/08/18 05:59 05:59 05:59 Intake Total 1066.6 Balance 1066.6 ICD10 Worksheet Patient Problems: Problems Problem Status Onset Syncope Acute Ventricular tachycardia Acute Atrial fibrillation Acute Cardiac arrest Acute Cardiac arrhythmia Acute Cardiac defibrillator in place Acute Cardiomyopathy Acute Seizure Acute
--- NOTE | 2018-08-07 14:03 | ECHO ---
[email or web address] [address] [address] Main: [phone] Echocardiography Examination Transthoracic Name: AURA RIVERA MR#: [id number] Study Date: 08/07/2018 Study Time: 12:14 PM Date of : 1950 Age: 67 year(s) Height: 172.7 cm (68 in.) Weight: 65.77 kg (145 lb.) BSA: 1.78 m2 Gender: Male Examination: Echo with Definity Contrast: 0.165 mg I.V. dose of Definity was administered Image Quality: Adequate Rhythm: Pacemaker rhythm Heart Rate: 50 bpm BP: 118 mmHg/73 mmHg Indication: Ventricular tachycardia, Cardiac: syncope, ischemic CHF Procedure Staff Referring Physician: Rinkman: Zulma Kan [facility] Reading Physician: Joshua Mejai MD Requesting Provider: Ordering Physician: Joshua Mejia MD Indication: Ventricular tachycardia, Cardiac: syncope, ischemic CHF Measurements Chambers AV/MV Label Value Normal Value Label Value Normal Value LVOT Vmax 0.59 m/s (0.7m/s - 1.1m/s) AV PGmax 3 mmHg LVOTd 2.1 cm (1.9cm - 2.1cm) AV Vmax 0.85 m/s LVDd, 2D 5.5 cm (4.2cm - 5.9cm) GRACE (Vmax) 2.4 cm2 LVDs, 2D 5.3 cm (2.1cm - 4cm) MV E Vmax 0.9 m/s IVSd, 2D 0.6 cm (0.6cm - 1.1cm) MV A Vmax 0.29 m/s LVPWd, 2D 0.8 cm (0.6cm - 1cm) MV E/A 3.1 LVEF, BP 16 % (55% - 70%) MV E/E' lateral 25.5 LVEF, 2D 10 % (54% - 74%) MV E/E' septal 30.2 (0.45 - 1.25) RVDd, 2D 2.9 cm (1.9cm - 3.8cm) MV DT 106 ms LA Volume, BP 64 ml (18ml - 58ml) MV E' septal 0.03 m/s LADs, 2D 4.5 cm (3cm - 4cm) MV E' lateral 0.04 m/s LAESV index, BP 36 ml/m2 MV E/E' mean 25.71 Additional Vessels MV E' mean 0.04 m/s Label Value Normal Value TV/PV AoAsc 3 cm Label Value Normal Value AoRoot, 2D 3.4 cm (1.4cm - 2.6cm) RA Pressure 5 mmHg RVSP 18 mmHg TR Pmax 13 mmHg Patient: AURA RIVERA Study Date: 08/07/2018 Page 1 of 3 12:14 PM TR Vmax 1.79 m/s PV PGmax 2 mmHg PV Vmax, Caliper 0.69 m/s (0.6m/s - 0.9m/s) Conclusions Left Ventricle: CONCLUSIONS:1)Severely reduced LV systolic function with a LVEF of 16% and focal akinesis of anterior-septal and apical dawson. The best moving dawson are lateral and inferior-posterior ones. No LV thrombus is noted. Severe, irresible diastolic dysfunction noted.2)Normal RV size and RV systolic function noted.3)Moderate left atrial enlargement noted.4)AICD wires noted in right heart chambers.5)Trileaflet aortic valve with no or AI noted.6)Mild to moderate MR without MV prolapse.7)Mild to moderate TR with estimated normal PA pressures. Findings Left Ventricle: Left ventricle is moderately dilated. CONCLUSIONS: 1)Severely reduced LV systolic function with a LVEF of 16% and focal akinesis of anterior-septal and apical dawson. The best moving dawson are lateral and inferior-posterior ones. No LV thrombus is noted. Severe, irresible diastolic dysfunction noted. 2)Normal RV size and RV systolic function noted. 3)Moderate left atrial enlargement noted. 4)AICD wires noted in right heart chambers. 5)Trileaflet aortic valve with no or AI noted. 6)Mild to moderate MR without MV prolapse. 7)Mild to moderate TR with estimated normal PA pressures.EF evaluated by EF (biplane Mccain's). The ejection fraction, measured by Simpsons method, is 16 %. Grade III Diastolic Dysfunction. There is no apical thrombus identified. Right Ventricle: Normal size right ventricle. Right ventricular systolic function is normal. There is a pacing/ICD wire present in the right ventricle. Left Atrium: The left atrium is moderately dilated. Right Atrium: The right atrium is normal in size. A line (catheter or pacing wire) is present in the right atrium. Mitral Valve: Mitral valve appears structurally normal. Mild to moderate mitral regurgitation. No mitral valve stenosis. Aortic Valve: The aortic valve is structurally normal and trileaflet. No aortic valve regurgitation. There is no aortic stenosis. Tricuspid Valve: Tricuspid valve leaflets are structurally normal. Mild to moderate tricuspid regurgitation. No tricuspid valve stenosis. Right Ventricular systolic pressure is measured at 18 mmHg. Pulmonary artery pressure normal. Pulmonic Valve: Pulmonic leaflets are structurally normal. No pulmonic valve regurgitation is evident. Aorta: The aortic root size in 2D measures 3.4 cm. The aortic root exhibits normal size. The ascending aorta measures 3.0 cm. Ascending aorta is normal in size. Aorta Measurements AoRoot, 2D is 3.4 cm. IVC: The inferior vena cava is normal in size and course. Pericardium: No pericardial effusion. Patient: AURA RIVERA Study Date: 08/07/2018 Page 2 of 3 12:14 PM Exam Details Procedure Ordered: Echo with Definity Procedure Status: Routine study Image Quality: Adequate Contrast: 0.165 mg I.V. dose of Definity was administered Intravenous contrast was administered to opacify the left ventricle Contrast Lot#: [id number] Facility Location: Cardiac Echo 1 (No Signature Object) Patient: AURA RIVERA Study Date: 08/07/2018 Page 3 of 3 12:14 PM [id number]
[2018-08-07] MEDS ORDERED: POTASSIUM CL 20 MEQ TAB PO ONE (15:30)
--- NOTE | 2018-08-07 15:39 | ASMTCMCOM ---
CM Note CM Note Notes: Reviewed chart, pt admitted to hospital after a syncopal episode in [facility]. Pt has a significant cardiac history which includes VT storm. Pt lives independently with and son, no therapies ordered. Dc needs uncertain, FOX w/f. DC Plan: TBD Date Signed: 08/07/2018 03:38 PM Electronically Signed By:Grisel Harding RN
[2018-08-07 15:52] VITALS: BP 106/69
[2018-08-07] MEDS ORDERED: POTASSIUM CL 20 MEQ TAB PO SCH (16:00)
--- NOTE | 2018-08-07 16:00 | HOSPPROG ---
Hospitalist Progress Note Assessment/Plan: 67 year old male with pmh of VT, CAD, CHF admitted with syncope, AICD interrogated found to be having VT Syncope- likely due to episodes of VTach. on amiodarone gtt currently. VTach- case discussed with cardiology, patient is having continued symptomatic Vtach. i reviewed his echo today which shows severely reduced LVEF of 15% -cont amio gtt -cont home meds. -keep K 4.5-5.5 -start KCL 20 TID -plan to discuss with electrophysiologists possible options -consider ambulance transfer to [facility] for OHT CAD- Hx of remote ND in [facility] many years ago. CHF with severely reduced LVEF of 15%. on eliquis, plavix, lipitor, Toprol, entresto NIDDM- appears diet controlled. hypothyroid- cont synthroid, check TSH. PPX- eliquis, plavix Fluids- None Lytes- keep K 4.5-5.5 Nutrition- diabetic diet Cor- Full Dispo- inpatient for vtach, extremely high risk patient. Subjective: no current chest pain, or faintness. Objective: Vital Signs Temp Pulse Resp BP Pulse Ox 36.6 C 52 L 14 118/73 96 08/07/18 11:19 08/07/18 11:27 08/07/18 11:19 08/07/18 11:27 08/07/18 11:19 Laboratory Results 08/07/18 03:13 08/06/18 08/07/18 08/08/18 05:59 05:59 05:59 Intake Total 1066.6 Balance 1066.6 - Physical Exam Constitutional: no apparent distress, appears nourished, not in pain Eyes: PERRL, anicteric sclera, EOMI Ears, Nose, Mouth, Throat: moist mucous membranes, hearing normal, ears appear normal, no oral mucosal ulcers Cardiovascular: regular rate and rhythym, no murmur, rub, or gallop Respiratory: no respiratory distress, no rales or rhonchi, clear to auscultation Gastrointestinal: normoactive bowel sounds, soft, non-tender abdomen, no palpable masses Genitourinary: no bladder fullness, no bladder tenderness, no renal bruits Skin: no rashes or abrasions, no fluctuance, no induration Musculoskeletal: full muscle strength, no muscle tenderness, normal joint ROM Neurologic: AAOx3, sensation intact bilaterally Psychiatric: interacting appropriately, not anxious, not encephalopathic, thought process linear Lymph, Heme, Immunologic: no cervical LAD, no supraclavicular LAD ICD10 Worksheet Patient Problems: Problems Problem Status Onset Syncope Acute Ventricular tachycardia Acute Atrial fibrillation Acute Cardiac arrest Acute Cardiac arrhythmia Acute Cardiac defibrillator in place Acute Cardiomyopathy Acute Seizure Acute
--- NOTE | 2018-08-07 16:25 | ASMTCMCOM ---
CM Note CM Note Notes: Received call from RN, pt needs to be transferred to [facility] via ALS ambulance. CM called the [facility] transfer line. Pt transferring to room 361, MD Nash filled out EMTALA and RN called report. Imaging is being pushed to [facility] and all notes printed to go with pt. DC Plan: Transfer to [facility] Date Signed: 08/07/2018 04:24 PM Electronically Signed By:Grisel Harding RN
--- NOTE | 2018-08-07 16:30 | ASMTLACE ---
LACE Length of stay for Answers: 1 day current admission Acuity / Level of Answers: Yes Care: Did the patient have an inpatient admission? Comorbidities - select Answers: Congestive heart failure all that apply Coronary Artery Disease Diabetes (uncontrolled or controlled) Other Notes: HTN # of Emergency department Answers: 1-2 visits in the last 6 months Score: 11 Date Signed: 08/07/2018 04:29 PM Electronically Signed By:Grisel Harding RN
--- NOTE | 2018-08-07 16:44 | PDDCSUM ---
Discharge Summary Discharge Summary: Discharge diagnosis Ventricular tachycardia Syncope Congestive heart failure Coronary artery disease Diabetes The patient was admitted after suffering a syncopal episode. He had a AICD which was interrogated in showed that he had been having episodes of ventricular tachycardia. Cardiology was consulted and echocardiogram was obtained. The echocardiogram showed a left ventricular ejection fraction of 15% . He was started on amiodarone drip continued to have episodes of ventricular tachycardia. Cardiology felt that the best course of action was likely transfer to the [facility] for evaluation of an open heart transplant. Cardiology discussed the case with the fire marshal at [facility] who accepted the patient. He was transferred on amiodarone drip to the [facility] for evaluation of an open heart transplant. Disposition Urgent transfer to [facility] I spent over 30 min on the discharge of this patient
--- NOTE | 2018-08-07 17:03 | ASMTDCNOTE ---
Case Management Discharge Discharge Order Complete? Answers: Yes Patient to Obtain Answers: Other Notes: [facility] Medications Transportation Arranged Answers: [facility] will Pick (Date 08/07/2018 05:45 PM & Time) EMTSHADIA Complete Answers: Yes Case Management Transport Answers: Yes Form Complete Family Notified Answers: Yes Discharge Comments Notes: D/w hospitalist, physician to physician done by Dr Herman. EDSON signed and copy put in chart. Phil from critical care transport requested an PCS, copy made and also placed in chart. RN gave report, pt aware of all information. Date Signed: 08/07/2018 05:02 PM Electronically Signed By:Grisel Harding RN
--- NOTE | 2018-08-07 21:02 | GCON ---
[f rep st] CONSULTATION CHF CONSULT DATE OF CONSULTATION: 08/07/2018 CHIEF COMPLAINT: Syncope and ventricular tachycardia. HISTORY OF PRESENT ILLNESS: The patient is a 67-year-old gentleman with the following cardiac histor y: He initially had an anterior [place] many years ago while living in [place]. This was treated med steven. 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 He has a chronic ischemic systolic he art failure with an LVEF of 15% and an AICD with frequent VT and previous VT storm in July of 2017. Harpreet vera had a drug-eluting stent of his left circumflex in July of 2017. He had a VT ablation in May. His last heart catheterization in July of 2017 demonstrated 100% chronically occluded LAD with e xtensive aviyv-hm-vqih collaterals. He had a 30% RCA lesion and 99% left circumflex lesion which was stented. His LVEF was 20%. An echo today demonstrates an LVEF of 15% with focal wall motion abnorm alities. He has normal RV function and mild mitral regurgitation and hayq-nn-wtlqacxy tricuspid insu fficiency. At his best, he can walk about 3-4 blocks before becoming dyspneic and do errands at [employer] and play with his granddaughter. He has frequent lightheadedness and yesterday while at [employer] , had syncope with a laceration to his lip. In the emergency room after being brought on by his fam jessica, he was noted to have frequent slow VT below the threshold where ATP or shocks to be delivered. He was admitted on IV amiodarone drip and has had no VT since yesterday afternoon. He is tired. He reports no chest pain, orthopnea, or PND. PAST MEDICAL HISTORY: 1. Coronary disease status post remote anterior [place] and drug-eluting stent to his left circumflex art nya in July of 2017. 2. Chronic ischemic systolic heart failure with an LVEF 15%. 3. AICD with malignant VT. 4. Dxr-sqxgvcm-hrtydeorn diabetes mellitus x3 years. PAST SURGICAL HISTORY: AICD drug eluding stent to the left circumflex in July of 2017 and VT ablation in May of 2018. CURRENT MEDICATIONS: Amiodarone drip at 0.5 mg/minute, Eliquis 5 mg twice daily, atorvastatin 40 mg per day, Plavix 75 mg per day, Synthroid 50 mcg per day, Toprol-XL 25 mg per day, mexiletine 150 mg t wice daily, Entresto 24/26 mg twice daily. ALLERGIES: Spironolactone which caused hyperkalemia. SOCIAL HISTORY: Patient is . 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 He does not smoke or use alcohol. FAMILY HISTORY: Positive for premature coronary artery disease. REVIEW OF SYSTEMS: The patient reports no recent fevers, chills, weight gain or weight loss. He has had no recent TIA or CVA symptoms. He denies GI bleed symptoms such as hematemesis, melena, or brig ht red blood per rectum. Rest of 10-point review of systems is negative. PHYSICAL EXAMINATION: VITAL SIGNS: Temperature 36.6 Celsius, pulse 52 and paced, blood pressure 118 /73, respirations 14, 96% on room air. Weight 65.8 kg. GENERAL: A normal, but tired-appearing gent ronald in no acute distress without chest pain or using respiratory muscles. EYES: Pupils equal and reactive to light. ENT: Oral mucosa with no cyanosis. NECK: Jugular venous pressure to 7 cm. Car otid pulses 2+ bilaterally with no obvious bruits. LUNGS: Clear to auscultation bilaterally without rales, rhonchi, or wheezing. HEART: Enlarged PMI. Regular rate and rhythm with 1/6 nonradiating s ystolic murmur and positive S3 gallop. ABDOMEN: Soft and nontender. No guarding or rebound. EXTRE MITIES: 2+ peripheral pulses including femoral and pedal pulses. No edema noted. MUSCULOSKELETAL: No scoliosis. NEURO: Normal affect and mood. NECK: No nuchal rigidity. SKIN : No bleeding or cy anosis. EKG: Sinus rhythm with paced ventricular rhythm. QTc 481 milliseconds. LABS: Sodium 139, potassium 3.5, chloride 105, bicarb 26, BUN 10, creatinine 0.9, glucose 91. White count 5.3, hematocrit 42, platelets 158,000, MCV 95. AST 139, ALT 98. Troponin negative. IMPRESSION AND RECOMMENDATION: A 67-year-old gentleman with extensive coronary disease status post r emote anterior myocardial infarction with chronic ischemic systolic heart failure with a left ventric ular ejection fraction of 15% and class 2-3 [place] [employer] symptoms with frequent maligna nt ventricular tachycardia not being controlled with oral amiodarone and mexiletine and ventricular t achycardia ablation. Despite all his cardiac issues, I think he is euvolemic without pulmonary edema . His main issue is control of his dangerous ventricular tachycardia. PLAN: 1. Would add KCl 20 mEq 3 times a day to run his serum potassium 4.5-5.5. 2. Rest of medications without change. 3. Would continue intravenous amiodarone at 0.5 mg/minute instead of oral amiodarone. 4. We will discuss with his EP doctors at [facility]. I think options could be upgrade to bivent ricular AICD and attempted another VT ablation with ECMO backup either here or at [facility]. 5. In the long run, I think he probably needs to be transferred to [facility] for considerati on of transplant and/or VAD bridging. Thank you for allowing me to participate in the care of the patient. I will follow along closely gisel delarosa during his hospitalization. Copy requested to: [facility] /[id number]/MODL
== END 2018-08-07 18:00 | disposition short-term general hospital (02) | DRG 309 ==
LOC: F2W 21:03
PROVIDERS: ADMIT Internal Medicine; ATTEND Internal Medicine
DX: I47.2 Ventricular tachycardia (principal); I11.0 Hypertensive heart disease with heart failure; I50.22 Chronic systolic (congestive) heart failure; I25.10 Atherosclerotic heart disease of native coronary artery without angina pectoris; E11.9 Type 2 diabetes mellitus without complications; E78.5 Hyperlipidemia, unspecified; E03.9 Hypothyroidism, unspecified; E55.9 Vitamin D deficiency, unspecified; I25.2 Old myocardial infarction; Z95.810 Presence of automatic (implantable) cardiac defibrillator; Z95.5 Presence of coronary angioplasty implant and graft
CPT/HCPCS: 84484-ER; 96365; J0282; J2405; Q9957